=== PATIENT | male | born 1960 | race Caucasian/White ===

== ENCOUNTER → 2016-11-06 | Outpatient (CLI) | payer BC ==
[~2016-11-06] MED LIST: ASP325TEC PO; ASP81TEC PO; ESCT10T; FLUO20CA25 PO; FLUO40CA PO; GABA-488 PO; GARL200T PO; GEMF600T3 PO; HYDR25TA4 PO; LAMO100T3 PO; LAMO200T3 PO; LORA0.5T PO; METH4TAB PO; METO5TAB2 PO; METO5TAB79 PO; NITR0.4T12 SL; OMEP20CA12 PO; OMG1KC PO; PNT40TEC PO; TOPI100T2 PO; TRM50T PO; VENL150T4 PO
--- NOTE | 2016-11-06 13:33 | Diagnostic Imaging Report ---
INDICATION: Trauma, seizure approximately 11 days ago, hit back during a fall, complains of lower back pain since. COMPARISON STUDIES: None. FINDINGS: Frontal and lateral views of the lumbar spine demonstrate no fracture or subluxation. Disc space narrowing is present at L2-L3 and L3-L4 with small posterior osteophytes. Milder disc space narrowing is present at L4-L5. IMPRESSION: There are degenerative changes of the lumbar spine with no acute findings. Dictated by: Dictated on workstation # [id number]
== END ==
LOC: RAD 12:05
PROVIDERS: ATTEND Internal Medicine
DX: M51.36 Other intervertebral disc degeneration, lumbar region (principal)
CPT/HCPCS: 72100

== ENCOUNTER → 2017-03-22 | Outpatient (CLI) | payer BC | LOC: CARD 07:02 | PROVIDERS: ATTEND Internal Medicine | DX: R07.9 Chest pain, unspecified (principal); I25.10 Atherosclerotic heart disease of native coronary artery without angina pectoris | CPT/HCPCS: 93017 ==

== ENCOUNTER 2017-04-05 20:12 | Outpatient (CLI) | payer BC | END 2017-04-06 06:20 | disposition home or self-care (01) | LOC: SLEEP 20:12 | PROVIDERS: ATTEND Psychiatry & Neurology Neurology | DX: G47.33 Obstructive sleep apnea (adult) (pediatric) (principal) | CPT/HCPCS: 95811 ==

== ENCOUNTER 2017-11-15 14:01 | Emergency (ER) | payer BC ==
[~2017-11-15] VITALS: Ht 190.5 cm; Wt 149.7 kg
--- OUTSIDE RECORDS SUMMARY | 2017-11-15 14:09 | XMS REPORT | Continuity of Care Document ---
Author Author [facility] Organization [facility] Address Unknown Phone Unavailable Allergies Active Description Code Type Severity Reaction Onset Reported/Identified Relationship to Patient Clinical Status Yes levofloxacin [id number] Drug Allergy Unknown N/A 07/16/2007 Medications There is no data. Problems Date Dx Coded Attending Type Code Diagnosis Diagnosed By 06/02/2009 Ot 346.90 06/02/2009 Ot 780.39 06/02/2009 Ot 780.4 06/02/2009 Ot 780.79 06/02/2009 Ot V58.69 02/27/2010 Ot 530.81 02/27/2010 Ot 550.90 02/27/2010 Ot 569.49 02/27/2010 Ot 578.1 06/22/2011 Ot 272.4 HYPERLIPIDEMIA NEC/NOS 06/22/2011 Ot 327.23 OBSTRUCTIVE SLEEP APNEA (ADULT) (PEDIATR 06/22/2011 Ot 401.9 HYPERTENSION NOS 06/22/2011 Ot 414.01 CORONARY ATHEROSCLEROSIS OF [place] CORON 06/22/2011 Ot 496 CHR AIRWAY OBSTRUCT NEC 06/22/2011 Ot 786.09 RESPIRATORY ABNORM NEC 06/22/2011 Ot 786.50 CHEST PAIN NOS 06/22/2011 Ot 794.30 ABN CARDIOVASC STUDY NOS 06/22/2011 Ot V58.66 LONG-TERM ( CURRENT) USE OF ASPIRIN 06/22/2011 Ot V58.69 OTH MED,LT, CURRENT USE 07/08/2011 Ot V01.89 OTHER COMMUNICABLE DISEASES 11/19/2012 Ot 272.4 HYPERLIPIDEMIA NEC/NOS 11/19/2012 Ot 327.23 OBSTRUCTIVE SLEEP APNEA (ADULT) (PEDIATR 11/19/2012 Ot 401.9 HYPERTENSION NOS 11/19/2012 Ot 414.01 CORONARY ATHEROSCLEROSIS OF [place] CORON 11/19/2012 Ot 433.10 CAROTID ARTERY OCCLUSION W O CEREBRAL IN 11/19/2012 Ot 496 CHR AIRWAY OBSTRUCT NEC 11/19/2012 Ot 786.50 CHEST PAIN NOS 11/19/2012 Ot 794.30 ABN CARDIOVASC STUDY NOS 11/19/2012 Ot V58.66 LONG-TERM ( CURRENT) USE OF ASPIRIN 11/19/2012 Ot V58.69 OTH MED,LT, CURRENT USE 01/23/2013 ANNE-MARIE HEMPHILL, GREG Charles Ot 327.23 OBSTRUCTIVE SLEEP APNEA (ADULT) (PEDIATR 01/29/2013 GREG XIE MD Ot 327.23 OBSTRUCTIVE SLEEP APNEA (ADULT) (PEDIATR 08/12/2014 Ot 286.9 08/12/2014 Ot 786.50 08/12/2014 Ot 427.89 08/12/2014 Ot 786.50 08/12/2014 Ot 272.4 08/12/2014 Ot 401.9 08/12/2014 Ot 780.39 08/12/2014 Ot 781.0 08/12/2014 Ot 550.90 08/12/2014 Ot 578.1 08/12/2014 Ot V72.63 08/12/2014 Ot V72.81 08/12/2014 Ot V74.8 08/12/2014 Ot 426.13 08/12/2014 Ot 427.81 08/12/2014 Ot 272.4 08/12/2014 Ot 397.0 08/12/2014 Ot 401.9 08/12/2014 Ot 424.0 08/12/2014 Ot 786.09 08/12/2014 Ot 786.50 08/12/2014 Ot 401.9 08/12/2014 Ot 414.00 08/12/2014 Ot 786.05 08/12/2014 Ot 786.50 08/12/2014 Ot 794.39 08/12/2014 Ot V72.63 08/12/2014 Ot V72.83 08/12/2014 Ot V01.89 08/12/2014 Ot 272.4 08/12/2014 Ot 401.9 08/12/2014 Ot 414.01 08/12/2014 Ot 401.9 08/12/2014 Ot 414.00 08/12/2014 Ot 786.50 08/12/2014 Ot 397.0 08/12/2014 Ot 401.9 08/12/2014 Ot 414.00 08/12/2014 Ot 424.0 08/12/2014 Ot 786.50 08/12/2014 SOFIYA HEMPHILL, CARLY T Ot 496 08/12/2014 JULIET HEMPHILL, MISAEL Little Ot 272.4 08/12/2014 JULIET HEMPHILL, MISAEL Little Ot 327.23 08/12/2014 MISAEL CHUNG MD Ot 401.9 08/12/2014 JULIET HEMPHILL, MISAEL Little Ot 414.00 08/12/2014 JULIET HEMPHILL, MISAEL Little Ot 427.81 08/12/2014 JOCELYN GARCIA APRN Ot 780.79 09/22/2014 Ot 286.9 09/22/2014 Ot 786.50 09/22/2014 Ot 427.89 09/22/2014 Ot 786.50 09/22/2014 Ot 272.4 09/22/2014 Ot 401.9 09/22/2014 Ot 780.39 09/22/2014 Ot 781.0 09/22/2014 Ot 550.90 09/22/2014 Ot 578.1 09/22/2014 Ot V72.63 09/22/2014 Ot V72.81 09/22/2014 Ot V74.8 09/22/2014 Ot 426.13 09/22/2014 Ot 427.81 09/22/2014 Ot 272.4 09/22/2014 Ot 397.0 09/22/2014 Ot 401.9 09/22/2014 Ot 424.0 09/22/2014 Ot 786.09 09/22/2014 Ot 786.50 09/22/2014 Ot 401.9 09/22/2014 Ot 414.00 09/22/2014 Ot 786.05 09/22/2014 Ot 786.50 09/22/2014 Ot 794.39 09/22/2014 Ot V72.63 09/22/2014 Ot V72.83 09/22/2014 Ot V01.89 09/22/2014 Ot 272.4 09/22/2014 Ot 401.9 09/22/2014 Ot 414.01 09/22/2014 Ot 401.9 09/22/2014 Ot 414.00 09/22/2014 Ot 786.50 09/22/2014 Ot 397.0 09/22/2014 Ot 401.9 09/22/2014 Ot 414.00 09/22/2014 Ot 424.0 09/22/2014 Ot 786.50 09/22/2014 SOFIYA HEMPHILL, SHANTELLROSSY Ot 496 09/22/2014 MISAEL CHUNG MD Ot 272.4 09/22/2014 MISAEL CHUNG MD Ot 327.23 09/22/2014 MISAEL CHUNG MD Ot 401.9 09/22/2014 MISAEL CHUNG MD Ot 414.00 09/22/2014 MISAEL CHUNG MD Ot 427.81 09/22/2014 JOCELYN GARCIA APRN Ot 780.79 12/03/2014 Ot 272.4 HYPERLIPIDEMIA NEC/NOS 12/03/2014 Ot 327.23 OBSTRUCTIVE SLEEP APNEA (ADULT) (PEDIATR 12/03/2014 Ot 401.9 HYPERTENSION NOS 12/03/2014 Ot 414.01 CORONARY ATHEROSCLEROSIS OF [place] CORON 12/03/2014 Ot 496 CHR AIRWAY OBSTRUCT NEC 12/03/2014 Ot 786.09 RESPIRATORY ABNORM NEC 12/03/2014 Ot 786.50 CHEST PAIN NOS 12/06/2014 Ot 535.40 OTH SPECIFIED GASTRITIS,W/O MENTION OF H 12/06/2014 Ot 553.3 DIAPHRAGMATIC HERNIA 01/07/2015 Ot 272.4 01/07/2015 Ot 401.9 01/07/2015 Ot 780.39 01/07/2015 Ot 781.0 01/07/2015 Ot 550.90 01/07/2015 Ot 578.1 01/07/2015 Ot V72.63 01/07/2015 Ot V72.81 01/07/2015 Ot V74.8 01/07/2015 Ot 426.13 01/07/2015 Ot 427.81 01/07/2015 Ot 272.4 01/07/2015 Ot 397.0 01/07/2015 Ot 401.9 01/07/2015 Ot 424.0 01/07/2015 Ot 786.09 01/07/2015 Ot 786.50 01/07/2015 Ot 401.9 01/07/2015 Ot 414.00 01/07/2015 Ot 786.05 01/07/2015 Ot 786.50 01/07/2015 Ot 794.39 01/07/2015 Ot V72.63 01/07/2015 Ot V72.83 01/07/2015 Ot V01.89 01/07/2015 Ot 272.4 01/07/2015 Ot 401.9 01/07/2015 Ot 414.01 01/07/2015 Ot 401.9 01/07/2015 Ot 414.00 01/07/2015 Ot 786.50 01/07/2015 Ot 397.0 01/07/2015 Ot 401.9 01/07/2015 Ot 414.00 01/07/2015 Ot 424.0 01/07/2015 Ot 786.50 01/07/2015 SOFIYA HEMPHILL, CARLY Kline Ot 496 01/07/2015 JULIET HEMPHILL, MISAEL Little Ot 272.4 01/07/2015 JULIET HEMPHILL, MISAEL Little Ot 327.23 01/07/2015 JULIET HEMPHILL, MISAEL J Ot 401.9 01/07/2015 JULIET HEMPHILL, MISAEL Little Ot 414.00 01/07/2015 JULIET HEMPHILL, MISAEL Little Ot 427.81 01/07/2015 OJCELYN GARCIA APRN Ot 780.79 01/07/2015 Ot V72.84 02/24/2015 ANNE-MARIE HEMPHILL, GREG Charles Ot 327.23 OBSTRUCTIVE SLEEP APNEA (ADULT) (PEDIATR 02/25/2015 Ot 272.4 02/25/2015 Ot 401.9 02/25/2015 Ot 780.39 02/25/2015 Ot 781.0 02/25/2015 Ot 550.90 02/25/2015 Ot 578.1 02/25/2015 Ot V72.63 02/25/2015 Ot V72.81 02/25/2015 Ot V74.8 02/25/2015 Ot 426.13 02/25/2015 Ot 427.81 02/25/2015 Ot 272.4 02/25/2015 Ot 397.0 02/25/2015 Ot 401.9 02/25/2015 Ot 424.0 02/25/2015 Ot 786.09 02/25/2015 Ot 786.50 02/25/2015 Ot 401.9 02/25/2015 Ot 414.00 02/25/2015 Ot 786.05 02/25/2015 Ot 786.50 02/25/2015 Ot 794.39 02/25/2015 Ot V72.63 02/25/2015 Ot V72.83 02/25/2015 Ot V01.89 02/25/2015 Ot 272.4 02/25/2015 Ot 401.9 02/25/2015 Ot 414.01 02/25/2015 Ot 401.9 02/25/2015 Ot 414.00 02/25/2015 Ot 786.50 02/25/2015 Ot 397.0 02/25/2015 Ot 401.9 02/25/2015 Ot 414.00 02/25/2015 Ot 424.0 02/25/2015 Ot 786.50 02/25/2015 SOFIYA HEMPHILL, CARLY T Ot 496 02/25/2015 MISAEL CHUNG MD Ot 272.4 02/25/2015 MISAEL CHUNG MD Ot 327.23 02/25/2015 MISAEL CHUNG MD Ot 401.9 02/25/2015 MISAEL CHUNG MD Ot 414.00 02/25/2015 MISAEL CHUNG MD Ot 427.81 02/25/2015 JOCELYN GARCIA HEMALATHA Ot 780.79 02/25/2015 Ot V72.84 11/15/2015 ALF MATHUR DO Ot R19.7 DIARRHEA, UNSPECIFIED 05/21/2016 Ot 272.4 HYPERLIPIDEMIA NEC/NOS 05/21/2016 Ot 397.0 TRICUSPID VALVE DISEASE 05/21/2016 Ot 401.9 HYPERTENSION NOS 05/21/2016 Ot 424.0 MITRAL VALVE DISORDER 05/21/2016 Ot 786.09 RESPIRATORY ABNORM NEC 05/21/2016 Ot 786.50 CHEST PAIN NOS 05/21/2016 Ot 401.9 HYPERTENSION NOS 05/21/2016 Ot 414.00 CORON ATHEROSCLER NOS TYPE VESSEL, NATIV 05/21/2016 Ot 786.05 SHORTNESS OF BREATH 05/21/2016 Ot 786.50 CHEST PAIN NOS 05/21/2016 Ot 794.39 ABN CARDIOVASC STUDY NEC 05/21/2016 Ot V72.63 PRE- PROCEDURAL LABORATORY EXAMINATION 05/21/2016 Ot V72.83 EXAM PRE- OPERATIVE NEC 05/21/2016 Ot V01.89 OTHER COMMUNICABLE DISEASES 05/21/2016 Ot 272.4 HYPERLIPIDEMIA NEC/NOS 05/21/2016 Ot 401.9 HYPERTENSION NOS 05/21/2016 Ot 414.01 CORONARY ATHEROSCLEROSIS OF [place] CORON 05/21/2016 Ot 401.9 HYPERTENSION NOS 05/21/2016 Ot 414.00 CORON ATHEROSCLER NOS TYPE VESSEL, NATIV 05/21/2016 Ot 786.50 CHEST PAIN NOS 05/21/2016 Ot 397.0 TRICUSPID VALVE DISEASE 05/21/2016 Ot 401.9 HYPERTENSION NOS 05/21/2016 Ot 414.00 CORON ATHEROSCLER NOS TYPE VESSEL, NATIV 05/21/2016 Ot 424.0 MITRAL VALVE DISORDER 05/21/2016 Ot 786.50 CHEST PAIN NOS 05/21/2016 SOFIYA HEMPHILL, CRALY Kline Ot 496 CHR AIRWAY OBSTRUCT NEC 05/21/2016 MISAEL CHUNG MD Ot 272.4 HYPERLIPIDEMIA NEC/NOS 05/21/2016 MISAEL CHUNG MD Ot 327.23 OBSTRUCTIVE SLEEP APNEA (ADULT) (PEDIATR 05/21/2016 MISAEL CHUNG MD Ot 401.9 HYPERTENSION NOS 05/21/2016 MISAEL CHUNG MD Ot 414.00 CORON ATHEROSCLER NOS TYPE VESSEL, NATIV 05/21/2016 MISAEL CHUNG MD Ot 427.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 05/21/2016 JOCELYN GARCIA APRN Ot 780.79 OTH MALAISE FATIGUE 05/21/2016 Ot V72.84 EXAM PRE- OPERATIVE NOS 05/21/2016 ALF MATHUR DO Ot R19.7 DIARRHEA, UNSPECIFIED 05/23/2016 MISAEL CHUNG MD Ot E78.2 MIXED HYPERLIPIDEMIA 05/23/2016 MISAEL CHUNG MD Ot I10 ESSENTIAL (PRIMARY) HYPERTENSION 05/23/2016 MISAEL CHUNG MD Ot I25.10 ATHSCL HEART DISEASE OF [place] CORONARY 05/23/2016 MISAEL CHUNG MD Ot I49.5 SICK SINUS SYNDROME 05/23/2016 MISAEL CHUNG MD Ot I65.23 OCCLUSION AND STENOSIS OF BILATERAL PABLO 05/23/2016 MISAEL CHUNG MD Ot R06.02 SHORTNESS OF BREATH 05/23/2016 MISAEL CHUNG MD Ot R07.9 CHEST PAIN, UNSPECIFIED 06/05/2016 Ot 272.4 HYPERLIPIDEMIA NEC/NOS 06/05/2016 Ot 397.0 TRICUSPID VALVE DISEASE 06/05/2016 Ot 401.9 HYPERTENSION NOS 06/05/2016 Ot 424.0 MITRAL VALVE DISORDER 06/05/2016 Ot 786.09 RESPIRATORY ABNORM NEC 06/05/2016 Ot 786.50 CHEST PAIN NOS 06/05/2016 Ot 401.9 HYPERTENSION NOS 06/05/2016 Ot 414.00 CORON ATHEROSCLER NOS TYPE VESSEL, NATIV 06/05/2016 Ot 786.05 SHORTNESS OF BREATH 06/05/2016 Ot 786.50 CHEST PAIN NOS 06/05/2016 Ot 794.39 ABN CARDIOVASC STUDY NEC 06/05/2016 Ot V72.63 PRE- PROCEDURAL LABORATORY EXAMINATION 06/05/2016 Ot V72.83 EXAM PRE- OPERATIVE NEC 06/05/2016 Ot V01.89 OTHER COMMUNICABLE DISEASES 06/05/2016 Ot 272.4 HYPERLIPIDEMIA NEC/NOS 06/05/2016 Ot 401.9 HYPERTENSION NOS 06/05/2016 Ot 414.01 CORONARY ATHEROSCLEROSIS OF [place] CORON 06/05/2016 Ot 401.9 HYPERTENSION NOS 06/05/2016 Ot 414.00 CORON ATHEROSCLER NOS TYPE VESSEL, NATIV 06/05/2016 Ot 786.50 CHEST PAIN NOS 06/05/2016 Ot 397.0 TRICUSPID VALVE DISEASE 06/05/2016 Ot 401.9 HYPERTENSION NOS 06/05/2016 Ot 414.00 CORON ATHEROSCLER NOS TYPE VESSEL, NATIV 06/05/2016 Ot 424.0 MITRAL VALVE DISORDER 06/05/2016 Ot 786.50 CHEST PAIN NOS 06/05/2016 SOFIYA HEMPHILL, CARLY Kline Ot 496 CHR AIRWAY OBSTRUCT NEC 06/05/2016 MISAEL CHUNG MD Ot 272.4 HYPERLIPIDEMIA NEC/NOS 06/05/2016 MISAEL CHUNG MD Ot 327.23 OBSTRUCTIVE SLEEP APNEA (ADULT) (PEDIATR 06/05/2016 MISAEL CHUNG MD Ot 401.9 HYPERTENSION NOS 06/05/2016 MISAEL CHUNG MD Ot 414.00 CORON ATHEROSCLER NOS TYPE VESSEL, NATIV 06/05/2016 MISAEL CHUNG MD Ot 427.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 06/05/2016 JOCELYN GARCIA APRN Ot 780.79 OTH MALAISE FATIGUE 06/05/2016 Ot V72.84 EXAM PRE- OPERATIVE NOS 06/05/2016 ALF MATHUR DO Ot R19.7 DIARRHEA, UNSPECIFIED 06/05/2016 MISAEL CHUNG MD Ot E78.2 MIXED HYPERLIPIDEMIA 06/05/2016 MISAEL CHUNG MD Ot I10 ESSENTIAL (PRIMARY) HYPERTENSION 06/05/2016 MISAEL CHUNG MD Ot I25.10 ATHSCL HEART DISEASE OF [place] CORONARY 06/05/2016 MISAEL CHUNG MD Ot I49.5 SICK SINUS SYNDROME 06/05/2016 MISAEL CHUNG MD Ot I65.23 OCCLUSION AND STENOSIS OF BILATERAL PABLO 06/05/2016 MISAEL CHUNG MD Ot R06.02 SHORTNESS OF BREATH 06/05/2016 MISAEL CHUNG MD Ot R07.9 CHEST PAIN, UNSPECIFIED 06/05/2016 Ot 272.4 HYPERLIPIDEMIA NEC/NOS 06/05/2016 Ot 397.0 TRICUSPID VALVE DISEASE 06/05/2016 Ot 401.9 HYPERTENSION NOS 06/05/2016 Ot 424.0 MITRAL VALVE DISORDER 06/05/2016 Ot 786.09 RESPIRATORY ABNORM NEC 06/05/2016 Ot 786.50 CHEST PAIN NOS 06/05/2016 Ot 401.9 HYPERTENSION NOS 06/05/2016 Ot 414.00 CORON ATHEROSCLER NOS TYPE VESSEL, NATIV 06/05/2016 Ot 786.05 SHORTNESS OF BREATH 06/05/2016 Ot 786.50 CHEST PAIN NOS 06/05/2016 Ot 794.39 ABN CARDIOVASC STUDY NEC 06/05/2016 Ot V72.63 PRE- PROCEDURAL LABORATORY EXAMINATION 06/05/2016 Ot V72.83 EXAM PRE- OPERATIVE NEC 06/05/2016 Ot V01.89 OTHER COMMUNICABLE DISEASES 06/05/2016 Ot 272.4 HYPERLIPIDEMIA NEC/NOS 06/05/2016 Ot 401.9 HYPERTENSION NOS 06/05/2016 Ot 414.01 CORONARY ATHEROSCLEROSIS OF [place] CORON 06/05/2016 Ot 401.9 HYPERTENSION NOS 06/05/2016 Ot 414.00 CORON ATHEROSCLER NOS TYPE VESSEL, NATIV 06/05/2016 Ot 786.50 CHEST PAIN NOS 06/05/2016 Ot 397.0 TRICUSPID VALVE DISEASE 06/05/2016 Ot 401.9 HYPERTENSION NOS 06/05/2016 Ot 414.00 CORON ATHEROSCLER NOS TYPE VESSEL, NATIV 06/05/2016 Ot 424.0 MITRAL VALVE DISORDER 06/05/2016 Ot 786.50 CHEST PAIN NOS 06/05/2016 SOFIYA HEMPHILL, CARLY Kline Ot 496 CHR AIRWAY OBSTRUCT NEC 06/05/2016 MISAEL CHUNG MD Ot 272.4 HYPERLIPIDEMIA NEC/NOS 06/05/2016 MISAEL CHUNG MD Ot 327.23 OBSTRUCTIVE SLEEP APNEA (ADULT) (PEDIATR 06/05/2016 MISAEL CHUNG MD Ot 401.9 HYPERTENSION NOS 06/05/2016 MISAEL CHUNG MD Ot 414.00 CORON ATHEROSCLER NOS TYPE VESSEL, NATIV 06/05/2016 MISAEL CHUNG MD Ot 427.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 06/05/2016 JOCELYN GARCIA APRN Ot 780.79 OTH MALAISE FATIGUE 06/05/2016 Ot V72.84 EXAM PRE- OPERATIVE NOS 06/05/2016 ALF MATHUR DO Ot R19.7 DIARRHEA, UNSPECIFIED 06/05/2016 MISAEL CHUNG MD Ot E78.2 MIXED HYPERLIPIDEMIA 06/05/2016 MISAEL CHUNG MD Ot I10 ESSENTIAL (PRIMARY) HYPERTENSION 06/05/2016 MISAEL CHUNG MD Ot I25.10 ATHSCL HEART DISEASE OF [place] CORONARY 06/05/2016 MISAEL CHUNG MD Ot I49.5 SICK SINUS SYNDROME 06/05/2016 MISAEL CHUNG MD Ot I65.23 OCCLUSION AND STENOSIS OF BILATERAL PABLO 06/05/2016 MISAEL CHUNG MD Ot R06.02 SHORTNESS OF BREATH 06/05/2016 MISAEL CHUNG MD Ot R07.9 CHEST PAIN, UNSPECIFIED 06/05/2016 RASHEED PULIDO CHANNELER RUNNER Ot M76.61 ACHILLES TENDINITIS, RIGHT LEG 06/05/2016 RASHEED PULIDO APRN Ot M79.661 PAIN IN RIGHT LOWER LEG 06/05/2016 RASHEED PULIDO APRN Ot Z79.82 FDC (CURRENT) USE OF ASPIRIN 06/05/2016 RASHEED PULIDO CHANNELER RUNNER Ot Z79.899 OTHER FDC (CURRENT) DRUG THERAPY 06/07/2016 RASHEED PULIDO CHANNELER RUNNER Ot M76.61 ACHILLES TENDINITIS, RIGHT LEG 06/07/2016 RASHEED PULIDO CHANNELER RUNNER Ot M79.661 PAIN IN RIGHT LOWER LEG 06/07/2016 RASHEED PULIDO CHANNELER RUNNER Ot Z79.82 FDC (CURRENT) USE OF ASPIRIN 06/07/2016 RASHEED PULIDO CHANNELER RUNNER Ot Z79.899 OTHER FDC (CURRENT) DRUG THERAPY 06/11/2016 RASHEED PULIDO CHANNELER RUNNER Ot M76.61 ACHILLES TENDINITIS, RIGHT LEG 06/11/2016 RASHEED PULIDO CHANNELER RUNNER Ot M79.661 PAIN IN RIGHT LOWER LEG 06/11/2016 RASHEED PULIDO CHANNELER RUNNER Ot Z79.82 FDC (CURRENT) USE OF ASPIRIN 06/11/2016 RASHEED PULIDO CHANNELER RUNNER Ot Z79.899 OTHER FDC (CURRENT) DRUG THERAPY 06/12/2016 MISAEL CHUNG MD Ot E78.2 MIXED HYPERLIPIDEMIA 06/12/2016 MISAEL CHUNG MD Ot I10 ESSENTIAL (PRIMARY) HYPERTENSION 06/12/2016 MISAEL CHUNG MD Ot I25.10 ATHSCL HEART DISEASE OF [place] CORONARY 06/12/2016 MISAEL CHUNG MD Ot I49.5 SICK SINUS SYNDROME 06/12/2016 MISAEL CHUNG MD Ot I65.23 OCCLUSION AND STENOSIS OF BILATERAL PABLO 06/12/2016 JULIET HEMPHILL, MISAEL Little Ot R06.02 SHORTNESS OF BREATH 06/12/2016 MISAEL CHUNG MD Ot R07.9 CHEST PAIN, UNSPECIFIED 11/06/2016 Ot 272.4 HYPERLIPIDEMIA NEC/NOS 11/06/2016 Ot 397.0 TRICUSPID VALVE DISEASE 11/06/2016 Ot 401.9 HYPERTENSION NOS 11/06/2016 Ot 424.0 MITRAL VALVE DISORDER 11/06/2016 Ot 786.09 RESPIRATORY ABNORM NEC 11/06/2016 Ot 786.50 CHEST PAIN NOS 11/06/2016 Ot 401.9 HYPERTENSION NOS 11/06/2016 Ot 414.00 CORON ATHEROSCLER NOS TYPE VESSEL, NATIV 11/06/2016 Ot 786.05 SHORTNESS OF BREATH 11/06/2016 Ot 786.50 CHEST PAIN NOS 11/06/2016 Ot 794.39 ABN CARDIOVASC STUDY NEC 11/06/2016 Ot V72.63 PRE- PROCEDURAL LABORATORY EXAMINATION 11/06/2016 Ot V72.83 EXAM PRE- OPERATIVE NEC 11/06/2016 Ot V01.89 OTHER COMMUNICABLE DISEASES 11/06/2016 Ot 272.4 HYPERLIPIDEMIA NEC/NOS 11/06/2016 Ot 401.9 HYPERTENSION NOS 11/06/2016 Ot 414.01 CORONARY ATHEROSCLEROSIS OF [place] CORON 11/06/2016 Ot 401.9 HYPERTENSION NOS 11/06/2016 Ot 414.00 CORON ATHEROSCLER NOS TYPE VESSEL, NATIV 11/06/2016 Ot 786.50 CHEST PAIN NOS 11/06/2016 Ot 397.0 TRICUSPID VALVE DISEASE 11/06/2016 Ot 401.9 HYPERTENSION NOS 11/06/2016 Ot 414.00 CORON ATHEROSCLER NOS TYPE VESSEL, NATIV 11/06/2016 Ot 424.0 MITRAL VALVE DISORDER 11/06/2016 Ot 786.50 CHEST PAIN NOS 11/06/2016 SOFIYA HEMPHILL, CARLY Kline Ot 496 CHR AIRWAY OBSTRUCT NEC 11/06/2016 MISAEL CHUNG MD Ot 272.4 HYPERLIPIDEMIA NEC/NOS 11/06/2016 MISAEL CHUNG MD Ot 327.23 OBSTRUCTIVE SLEEP APNEA (ADULT) (PEDIATR 11/06/2016 MISAEL CHUNG MD Ot 401.9 HYPERTENSION NOS 11/06/2016 MISAEL CHUNG MD Ot 414.00 CORON ATHEROSCLER NOS TYPE VESSEL, NATIV 11/06/2016 MISAEL CHUNG MD Ot 427.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 11/06/2016 JOCELYN GARCIA APRN Ot 780.79 OTH MALAISE FATIGUE 11/06/2016 Ot V72.84 EXAM PRE- OPERATIVE NOS 11/06/2016 ALF MATHUR DO Ot R19.7 DIARRHEA, UNSPECIFIED 11/06/2016 MISAEL CHUNG MD Ot E78.2 MIXED HYPERLIPIDEMIA 11/06/2016 MISAEL CHUNG MD Ot I10 ESSENTIAL (PRIMARY) HYPERTENSION 11/06/2016 MISAEL CHUNG MD, Ot I25.10 ATHSCL HEART DISEASE OF [place] CORONARY 11/06/2016 MISAEL CHUNG MD Ot I49.5 SICK SINUS SYNDROME 11/06/2016 MISAEL CHUNG MD Ot I65.23 OCCLUSION AND STENOSIS OF BILATERAL PABLO 11/06/2016 MISAEL CHUNG MD Ot R06.02 SHORTNESS OF BREATH 11/06/2016 MISAEL CHUNG MD, Ot R07.9 CHEST PAIN, UNSPECIFIED 11/07/2016 ALF MATHUR DO Ot M51.36 OTHER INTERVERTEBRAL DISC DEGENERATION, 11/22/2016 ALF MATHUR DO Ot M51.36 OTHER INTERVERTEBRAL DISC DEGENERATION, 04/05/2017 ALF MATHUR DO Ot I25.10 ATHSCL HEART DISEASE OF [place] CORONARY 04/05/2017 ALF MATHUR DO Ot R07.9 CHEST PAIN, UNSPECIFIED 04/06/2017 GREG XIE MD Ot G47.33 OBSTRUCTIVE SLEEP APNEA (ADULT) (PEDIATR Procedures There is no data. Results There is no data. Encounters ACCT No. Visit Date/Time Discharge Status Pt. Type Provider Facility Loc./Unit Complaint [id number] 04/05/2017 20:12:00 04/06/2017 06:20:00 DIS Outpatient GREG XIE MD [facility] SLEEP OBSTRUCTIVE SLEEP APNEA [id number] 03/22/2017 07:02:00 03/22/2017 23:59:59 CLS Outpatient ALF MATHUR DO [facility] CARD R07.9,I25.10 [id number] 11/06/2016 12:05:00 11/06/2016 23:59:59 CLS Outpatient ALF MATHUR DO [facility] RAD TRAUMA [id number] 06/05/2016 18:27:00 06/05/2016 23:59:59 CLS Outpatient KARINA LOVE HERNANDEZABDIRAHMAN FRASER [facility] QUICK FOOT/ANKLE PAIN [id number] 06/05/2016 19:15:00 06/05/2016 20:52:00 DIS Emergency RASHEED PULIDO CHANNELER RUNNER [facility] ER R HEEL/LEG PAIN [id number] 05/21/2016 08:02:00 05/21/2016 23:59:59 CLS Outpatient MISAEL CHUNG MD [facility] CARD CAD, CAROTID ARTERY STENOSIS, CHEST PAIN, DYSPNEA, [id number] 11/16/2015 00:08:00 11/16/2015 23:59:59 CLS Preadmit ALF MATHUR DO [facility] LAB DIARRHEA [id number] 08/17/2015 11:02:00 11/15/2015 00:01:00 DIS Outpatient ALF MATHUR DO [facility] LAB DIARRHEA [id number] 02/23/2015 20:18:00 02/24/2015 05:05:00 DIS Outpatient GREG XIE MD [facility] SLEEP APNEAS [id number] 03/10/2014 09:42:00 03/10/2014 23:59:59 CLS Outpatient JOCELYN GARCIA APRN [facility] LAB FATIGUE [id number] 09/21/2013 07:57:00 09/21/2013 23:59:59 CLS Outpatient MISAEL CHUNG MD [facility] LAB HTN,HLP,JUSTIN,SSS,CAD [id number] 02/04/2013 12:58:00 02/04/2013 23:59:59 CLS Outpatient CARLY ARRIAZA MD [facility] RT COPD [id number] 01/28/2013 19:59:00 01/29/2013 06:35:00 DIS Outpatient GREG XIE MD [facility] SLEEP OA [id number] 01/22/2013 21:00:00 01/23/2013 07:15:00 DIS Outpatient ANNE-MARIE HEMPHILL, GREG Charles [facility] SLEEP JUSTIN [id number] 12/06/2014 06:43:00 Document Registration [id number] 12/03/2014 11:51:00 Document Registration [id number] 12/02/2014 19:35:00 Document Registration [id number] 11/19/2012 08:33:00 Document Registration [id number] 11/05/2012 11:28:00 Document Registration [id number] 10/31/2012 09:13:00 Document Registration [id number] 11/16/2011 07:46:00 Document Registration [id number] 07/09/2011 00:00:00 Document Registration [id number] 06/22/2011 05:30:00 Document Registration [id number] 06/21/2011 07:38:00 Document Registration [id number] 06/13/2011 10:41:00 Document Registration [id number] 04/15/2011 10:55:00 Document Registration [id number] 03/17/2010 09:48:00 Document Registration [id number] 02/27/2010 05:41:00 Document Registration [id number] 02/22/2010 09:10:00 Document Registration [id number] 11/28/2009 08:46:00 Document Registration [id number] 11/28/2009 08:41:00 Document Registration [id number] 06/01/2009 13:15:00 Document Registration [id number] 05/25/2009 10:58:00 Document Registration [id number] 05/10/2009 10:50:00 Document Registration [id number] 05/04/2009 10:38:00 Document Registration
[2017-11-15] MEDS ORDERED: LACTATED RINGERS 1,000 ML IV ONE ×2 (14:17→15:49)
--- NOTE | 2017-11-15 14:27 | ED GI ---
General Chief Complaint: Abdominal/GI Problems Stated Complaint: CARRANZA/DOESN'T FEEL RIGHT/SOB Source of Information: Patient, Spouse Exam Limitations: No Limitations History of Present Illness Date Seen by Provider: Nov 15, 2017 Time Seen by Provider: 14:10 Initial Comments Patient presents to the ER by private conveyance with a chief complaint that for one day he's been experiencing nausea vomiting and diarrhea. The vomit and bowel has been nonbloody. He does not have a history of irritable bowel syndrome or inflammatory bowel syndrome. No one around him is sick and he has not had any travel outside the [facility]. He has no fevers. He has also experienced a headache today is unlike his normal migraine headaches and that it is global, constant and has not responded to a single dose of ibuprofen today. He has no rash and he is not a smoker. He has had a colonoscopy distantly and it was unremarkable at that time. He has known heart disease that is medically managed by Dr. Chapa, cardiology. He is not expressing any chest pain but he is having some mild shortness of breath. The shortness of breath is made worse with exertion. He was at work and called his because he wanted to be evaluated so they went to urgent care just prior to arrival at the ER where they were told that he might have pneumonia and therefore he should go to the ER to have an x-ray and lab work obtained. He does have a history of COPD for which she has been prescribed daily inhalers as well as Ventolin but his remarks he has not had or use those inhalers for over a year now. The patient says he does not use oxygen however he does use a CPAP at night. Allergies and Home Medications Allergies Coded Allergies: levofloxacin (Verified Allergy, Unknown, 07/16/07) Home Medications Aspirin 81 Mg Tabec, 81 MG PO DAILY, (Reported) Gabapentin 300 Mg Capsule, 300 MG PO TID, (Reported) Garlic 200 Mg Tablet, 200 MG PO DAILY, (Reported) Gemfibrozil 600 Mg Tablet, 600 MG PO BID, (Reported) Hydrochlorothiazide 25 Mg Tablet, 25 MG PO DAILY, (Reported) Methylprednisolone 4 Mg Tab.ds.pk, 4 MG PO UD Prescribed by: RASHEED PULIDO on 06/05/162012 Metoclopramide Hcl 5 Mg Tablet, 5 MG PO TID PRN, (Reported) [place] 3 Polyunsat Fatty Acids 1,000 Mg Cap, 2,000 MG PO BID, (Reported) Pantoprazole Sod 40 Mg Tab, 40 MG PO DAILY Prescribed by: MISAEL CHAPA on 12/03/14 0937 Topiramate 100 Mg Tablet, 100 MG PO BID, (Reported) Venlafaxine Hcl 150 Mg Tab.osm.24, 150 MG PO DAILY, (Reported) Review of Systems Constitutional: No chills, No diaphoresis, No fever, malaise EENTM: Blurred Vision, No Double Vision Respiratory: Denies Cough, Denies Shortness of Air, Denies Stridor, Denies Wheezing Cardiovascular: Denies Chest Pain, Denies Lightheadedness, Denies Palpitations , Denies Syncope Gastrointestinal: Denies Abdomen Distended, Denies Abdominal Pain, Denies Constipated, Diarrhea, Nausea, Poor Appetite, Poor Fluid Intake, Vomiting Genitourinary: Denies Burning, Denies Discharge Musculoskeletal: No back pain, No joint pain Skin: No pruritus, No rash Psychiatric/Neurological: Denies Anxiety, Denies Depressed Past Mwnzlsp-Jqyozx-Moonnc Hx Patient Social History Alcohol Use: Occasionally Uses Recreational Drug Use: No Smoking Status: Former Smoker Type Used: Cigarettes Recent Foreign Travel: No Contact w/Someone Who Travel: No Recent Hopitalizations: No Surgeries History of Surgeries: Yes (COMPRESSED NERVE R ARM, HERNIA REPAIR, HEART CATHS) Surgeries: Abdominal, Gallbladder Respiratory History of Respiratory Disorde: Yes Respiratory Disorders: Sleep Apnea, COPD Cardiovascular History of Cardiac Disorders: Yes Cardiac Disorders: Coronary Artery Disease, Deep Vein Thrombosis, High Cholesterol Neurological History of Neurological Disord: Yes Neurological Disorders: Headaches /Migraines, Seizure Disorder Reproductive System Hx Reproductive Disorders: No Sexually Transmitted Disease: No Gastrointestinal History of Gastrointestinal Di: Yes Gastrointestinal Disorders: Gastroesophageal Reflux, Ulcer Musculoskeletal History of Musculoskeletal Dis: No Endocrine History of Endocrine Disorders: No Cancer History of Cancer: No Psychosocial History of Psychiatric Problem: Yes Behavioral Health Disorders: Anxiety, Depression Integumentary History of Skin or Integumenta: No Blood Transfusions History of Blood Disorders: No Physical Exam Vital Signs VS - Last 72 Hours, by Label 11/15/17 11/15/17 11/15/17 14:01 14:42 15:33 Temp 97.4 Pulse 72 75 Resp 18 18 B/P (MAP) 162/99 (120) 163/91 (115) Pulse Ox 97 99 98 O2 Delivery Room Air Room Air Room Air Capillary Refill : General Appearance: WD/WN, no apparent distress HEENT: TMs normal, pharynx normal Neck: non-tender, full range of motion, normal inspection Respiratory: chest non-tender, lungs clear, no respiratory distress, no accessory muscle use, decreased breath sounds Cardiovascular: normal peripheral pulses, regular rate, rhythm, no edema Peripheral Pulses: 2+ Radial Pulses (R), 2+ Radial Pulses (L) Gastrointestinal: normal bowel sounds, non tender, soft, no organomegaly, No rebound, No tenderness (negative for tenderness over McBurney's point and no Wagner's sign.) Neurologic/Psychiatric: alert, oriented x 3 Skin: normal color, warm/dry Progress/Results/Core Measures Results/Orders Lab Results Laboratory Tests Test 11/15/17 14:30 Range/Units White Blood Count 5.8 4.3-11.0 10^3/uL Red Blood Count 4.42 4.35-5.85 10^6/uL Hemoglobin 13.3 13.3-17.7 G/DL Hematocrit 38 L 40-54 % Mean Corpuscular Volume 87 80-99 FL Mean Corpuscular Hemoglobin 30 25-34 PG Mean Corpuscular Hemoglobin Concent 35 32-36 G/DL Red Cell Distribution Width 14.3 10.0-14.5 % Platelet Count 288 130-400 10^3/uL Mean Platelet Volume 9.5 7.4-10.4 FL Neutrophils (%) (Auto) 61 42-75 % Lymphocytes (%) (Auto) 25 12-44 % Monocytes (%) (Auto) 12 0-12 % Eosinophils (%) (Auto) 3 0-10 % Basophils (%) (Auto) 0 0-10 % Neutrophils # (Auto) 3.5 1.8-7.8 X 10^3 Lymphocytes # (Auto) 1.4 1.0-4.0 X 10^3 Monocytes # (Auto) 0.7 0.0-1.0 X 10^3 Eosinophils # (Auto) 0.2 0.0-0.3 10^3/uL Basophils # (Auto) 0.0 0.0-0.1 10^3/uL Sodium Level 142 135-145 MMOL/L Potassium Level 4.1 3.6-5.0 MMOL/L Chloride Level 105 98-107 MMOL/L Carbon Dioxide Level 26 21-32 MMOL/L Anion Gap 11 5-14 MMOL/L Blood Urea Nitrogen 21 H 7-18 MG/DL Creatinine 1.26 0.60-1.30 MG/DL Estimat Glomerular Filtration Rate 59 BUN/Creatinine Ratio 17 Glucose Level 108 H 70-105 MG/DL Calcium Level 9.6 8.5-10.1 MG/DL Magnesium Level 2.1 1.8-2.4 MG/DL Total Bilirubin 0.5 0.1-1.0 MG/DL Aspartate Amino Transf (AST/SGOT) 16 5-34 U/L Alanine Aminotransferase (ALT/SGPT) 16 0-55 U/L Alkaline Phosphatase 144 H 40-136 U/L Troponin I < 0.30 <0.30 NG/ML C-Reactive Protein High Sensitivity 0.80 H 0.00-0.50 MG/DL Total Protein 7.8 6.4-8.2 GM/DL Albumin 4.6 H 3.2-4.5 GM/DL Lipase 43 8-78 U/L Micro Results Microbiology 11/15/17 Influenza Types A,B Antigen (MURRAY) - Final, Complete My Orders Orders - DEVONTE CALITXO Cbc With Automated Diff (11/15/17 14:17) Comprehensive Metabolic Panel (11/15/17 14:17) Hs C Reactive Protein (11/15/17 14:17) Magnesium (11/15/17 14:17) Troponin I (11/15/17 14:17) Influenza A And B Antigens (11/15/17 14:17) Chest Pa/Lat (2 View) (11/15/17 14:17) Albuterol/Ipra Inhalation Soln (Duoneb I (11/15/17 14:30) Saline Lock/Iv-Start (11/15/17 14:17) Lactated Ringers (Lr 1000 Ml Iv Solution (11/15/17 14:17) Ekg Tracing (11/15/17 14:17) Continuous Ekg Monitoring (11/15/17 14:17) Svn Sm Volume Nebulizer Rt-Rfs (11/15/17 14:17) Ondansetron Injection (Zofran Injectio (11/15/17 14:30) Ketorolac Injection (Toradol Injection) (11/15/17 14:30) Lipase (11/15/17 15:39) Fentanyl Injection (Sublimaze Injection (11/15/17 16:00) Promethazine Injection (Phenergan Injec (11/15/17 16:00) Ct Abdomen/Pelvis W (11/15/17 15:49) Lactated Ringers (Lr 1000 Ml Iv Solution (11/15/17 15:49) Iohexol Injection (Omnipaque 350 Mg/Ml 1 (11/15/17 16:00) Sodium Chloride Flush (Catheter Flush Sy (11/15/17 16:00) Ns (Ivpb) (Sodium Chloride 0.9%) (11/15/17 16:00) Pharmacy Communication (Pharmacy Communi (11/15/17 15:52) Medications Given in ED Current Medications Medications Dose Ordered Sig/Raya Route Start Time Stop Time Status Last Admin Dose Admin Albuterol/ Ipratropium 3 ml ONCE ONCE INH 11/15/17 14:30 11/15/17 14:31 DC 11/15/17 14:36 3 ML Fentanyl Citrate 50 mcg ONCE ONCE IVP 11/15/17 16:00 11/15/17 16:01 DC 11/15/17 15:57 50 MCG Iohexol 100 ml ONCE ONCE IV 11/15/17 16:00 11/15/17 16:01 DC 11/15/17 16:16 100 ML Ketorolac Tromethamine 15 mg ONCE ONCE IVP 11/15/17 14:30 11/15/17 14:32 DC 11/15/17 14:37 15 MG Lactated Ringer's 1,000 ml @ 0 mls/hr Q0M ONCE IV 11/15/17 14:17 11/15/17 14:22 DC 11/15/17 14:38 1,000 MLS/HR Lactated Ringer's 1,000 ml @ 0 mls/hr Q0M ONCE IV 11/15/17 15:49 11/15/17 15:51 DC 11/15/17 15:57 1,000 MLS/HR Ondansetron HCl 4 mg ONCE ONCE IVP 11/15/17 14:30 11/15/17 14:32 DC 11/15/17 14:37 4 MG Promethazine HCl 25 mg ONCE ONCE IVP 11/15/17 16:00 11/15/17 16:01 DC 11/15/17 15:57 25 MG Sodium Chloride 10 ml NEEDED PRN IV 11/15/17 16:00 11/15/17 16:16 10 ML Sodium Chloride 250 ml ONCE ONCE IV 11/15/17 16:00 11/15/17 16:01 DC 11/15/17 16:16 80 ML Vital Signs/I&O Vital Sign - Last 12Hours 11/15/17 11/15/17 11/15/17 14:01 14:42 15:33 Temp 97.4 Pulse 72 75 Resp 18 18 B/P (MAP) 162/99 (120) 163/91 (115) Pulse Ox 97 99 98 O2 Delivery Room Air Room Air Room Air Progress Note #1: Time: 15:41 Progress Note Patient's chief complaint seems to be nausea vomiting diarrhea which is more consistent with gastrointestinal disorder. His shortness of breath is more of a side note and when I asked him directly about it he only noncommittally said he has a little bit of shortness of breath. However he denies any wheezing, stridor or other evidence of COPD. His clinical examination did not change after the DuoNeb he does not feel that his breathing got any better. Chest x- ray is not showing any evidence of a pneumonia. His white count is not elevated. His alkaline phosphatase is mildly elevated sodium at a lipase and even though his had his gallbladder out think about any possible stroking disorder and give him the opportunity to get imaging of his abdomen. Progress Note #2: Time: 17:12 Progress Note Skeletal evidence of a pneumonia. Patient's nausea is mildly improved on the Phenergan and Zofran. We'll send him home some Zofran. His headache mildly improved with the NSAID the fentanyl however did not help much. We have offered him some opiates anyways with his diarrheal disease. Discussed using her might appropriately. Discussed that if symptoms not improving by time to go back to work on Saturday which would be 5 days then it would be best that he see his primary care physician for further evaluation and management. We have also discussed return precautions if he expresses a neurologic symptoms with this headache and movement of the detail about this. ECG Initial ECG Impression Date: Nov 15, 2017 Initial ECG Impression Time: 14:50 Initial ECG Rate: 87 Initial ECG Rhythm: Normal Sinus Initial ECG Intervals: Normal Initial ECG Impression: Normal Initial ECG Comparisson: No Previous ECG Available Comment No ST segment elevation or depression. Diagnostic Imaging Diagonstic Imaging: Xray Plain Films/CT/US/NM/MRI: chest Comments [facility] [place] [place] NAME: WALDEMAR MCKEON [facility] REC#: [id number] PT STATUS: REG ER : 1960 PHYSICIAN: DEVONTE CALIXTO MD ADMIT DATE: 11/15/17/ER Draft Date of Exam:11/15/17 CHEST PA/LAT (2 VIEW) INDICATION: Headache, nausea and vomiting. COMPARISON: 12/02/2014 FINDINGS: Two views of the chest are obtained. Heart size is normal. The pulmonary vessels appear unremarkable. There is no pneumothorax, mediastinal widening or pleural fluid. The lungs are clear. The osseous structures appear unremarkable. IMPRESSION: No acute abnormality is demonstrated. Dictated on workstation # [id number] Dict: 11/15/17 1509 Trans: 11/15/17 1511 [facility] [id number] Interpreted by: RAVINDRA ALCANTAR DO Electronically signed by: Reviewed: Reviewed by Me Diagonstic Imaging: CT Plain Films/CT/US/NM/MRI: abdomen, pelvis Comments Lung bases there is no significant edema, infiltrate or effusion. Bilateral kidneys unremarkable. The architecture, blood vessels and ureters of the kidneys, spleen and liver are unremarkable. Gallbladder surgically absent with clips in place. No ductal dilatation of the biliary ductal system. Colon and small bowels are empty without significant inflammatory changes. Abdominal wall unremarkable. No acute osseous abnormality noted. No free fluid or air in the abdomen. Stomach and duodenum unremarkable. Radiopaque object in the lumen noted. Moderate calcification of intra-abdominal arteries. Neither the appendix nor secondary evidence of appendiceal inflammation is seen. [facility] [place] [place] NAME: WALDEMAR MCKEON [facility] REC#: [id number] PT STATUS: REG ER : 1960 PHYSICIAN: DEVONTE CALIXTO MD ADMIT DATE: 11/15/17/ER Draft Date of Exam:11/15/17 CT ABDOMEN/PELVIS W PROCEDURE: CT abdomen and pelvis with contrast. TECHNIQUE: Multiple contiguous axial images were obtained through the abdomen and pelvis after administration of intravenous contrast. INDICATION: Nausea, vomiting, and diarrhea. COMPARISON: None available. FINDINGS: Lower chest: The lung bases are clear. No pericardial or pleural effusion. Peritoneum: No free intraperitoneal air or fluid. Liver and biliary system: The liver is normal. Status post cholecystectomy. No biliary duct dilatation. Spleen and Pancreas: Spleen is normal. The pancreas enhances normally without mass lesion or peripancreatic inflammatory changes. Adrenals: Normal. tract: The kidneys enhance normally without suspicious mass or obstruction. Urinary bladder is distended without wall thickening. Prostate is not enlarged. GI tract: Stomach is partially distended with fluid and food debris, and there is no wall thickening. No bowel obstruction. No pericolonic inflammatory changes. There are a few scattered sigmoid colon diverticula without evidence of diverticulitis. Appendix is not visualized and may be surgically absent. If not surgically absent, there are no inflammatory changes to indicate acute appendicitis. Vasculature and Lymph nodes: Normal caliber aorta with scattered calcified atherosclerotic plaques that do not result in significant luminal narrowing. No abdominal or pelvic lymphadenopathy. Musculoskeletal: No concerning osseous lesion. Focally advanced degenerative disc disease at the lumbosacral junction. IMPRESSION: 1. No acute obstructive or inflammatory process in the abdomen or pelvis. 2. Sigmoid colon diverticulosis without diverticulitis. Dictated on workstation # [id number] Dict: 11/15/17 1631 Trans: 11/15/17 1639 [id number] Interpreted by: DANIEL ARREOLA MD Electronically signed by: Reviewed: Reviewed by Me Departure Impression Impression: Primary Impression: Gastroenteritis and colitis, viral Additional Impression: Acute tension headache Qualified Codes: G44.201 - Tension-type headache, unspecified, intractable Disposition: 01 HOME, SELF-CARE Condition: Improved Departure-Patient Inst. Decision time for Depature: 17:13 Referrals: ALF MATHUR DO (PCP/Family) Primary Care Physician Patient Instructions: Viral Gastroenteritis, Adult (DC) Add. Discharge Instructions: Drink lots of water and sports drinks to get herself rehydrated. If you have nausea you can use the Zofran 1 tablet on the tongue and allowed to absorb every 4 hours as needed. If you're having pain thousand grams of Tylenol every 8 hours as well as 800 mg of ibuprofen every 8 hours would be reasonable. If you 're still having breakthrough pain especially with diarrhea then you can use the hydrocodone one tablet every 6 hours. Hydrocodone will cause constipation which is acceptable effect even your diarrhea. You should not drive or operate heavy machinery while under the influence of hydrocodone. Eat a diet rich in fiber and low in spicy greasy foods such as a brat diet, bananas, rice, applesauce and/or toast. If your diarrhea is persisting for more than 24-48 hours or you do not feel that you can keep up with your fluid intake then you can take 2 tablets of loperamide/Imodium and then every 4 hours afterwards take another tablet if you're still having loose watery stools. If you begin to experience any symptoms such as double vision, blindness, slurred speech, facial droop, weakness, falls, loss of control of your bowel or bladder or other worrisome symptoms return to the ER immediately for evaluation. If you are not feeling your symptoms are resolved by Saturday of next week then you should call your primary care physician for follow-up evaluation. All discharge instructions reviewed with patient and/or family. Voiced understanding. Scripts Hydrocodone Bit/Acetaminophen (Hydrocodone/Acetaminophen 5/325mg Tablet) 1 Tab Tab 1 EACH PO Q6H Y for BREAKTHROUGH PAIN, #15 TAB 0 Refills Prov: DEVONTE CALIXTO 11/15/17 Ondansetron (Ondansetron Odt) 4 Mg Tab.rapdis 4 MG PO Q4H Y for NAUSEA/VOMITING, #20 TAB 0 Refills Prov: DEVONTE CALIXTO 11/15/17 Work/School Note: Work Release Form Date Seen in the Emergency Department: Nov 15, 2017 Return to Work: Nov 19, 2017 Restrictions: No Restrictions Copy Copies To 1: ALF MATHUR TITUS J Nov 15, 2017 14:27
[2017-11-15] MEDS ORDERED: RT-ALBUTEROL/IPRATROPIUM 3 ML (DUONEB) VIAL INH ONE (14:30)
[2017-11-15] MEDS ORDERED: ONDANSETRON 4 MG/2 ML (SDV) Z0FRAN IVP ONE (14:30)
[2017-11-15] MEDS ORDERED: KETOROLAC 30 MG/ML VIAL IVP ONE (14:30)
[2017-11-15 14:50] LABS: BASOPHILS % (AUTO) 0 % (0-10); EOSINOPHILS # (AUTO) 0.2 10^3/uL (0.0-0.3); EOSINOPHILS % (AUTO) 3 % (0-10); HEMATOCRIT 38 % (40-54); HEMOGLOBIN 13.3 G/DL (13.3-17.7); LYMPHOCYTES # (AUTO) 1.4 X 10^3 (1.0-4.0); LYMPHOCYTES % (AUTO) 25 % (12-44); MEAN CORPUSCULAR HEMOGLOBIN 30 PG (25-34); MEAN CORPUSCULAR HGB CONC 35 G/DL (32-36); MEAN CORPUSCULAR VOLUME 87 FL (80-99); MEAN PLATELET VOLUME 9.5 FL (7.4-10.4); MONOCYTES # (AUTO) 0.7 X 10^3 (0.0-1.0); MONOCYTES % (AUTO) 12 % (0-12); NEUTROPHILS # (AUTO) 3.5 X 10^3 (1.8-7.8); NEUTROPHILS % (AUTO) 61 % (42-75); PLATELET COUNT 288 10^3/uL (130-400); RED BLOOD COUNT 4.42 10^6/uL (4.35-5.85); RED CELL DISTRIBUTION WIDTH 14.3 % (10.0-14.5); WHITE BLOOD COUNT 5.8 10^3/uL (4.3-11.0)
--- NOTE | 2017-11-15 15:11 | Diagnostic Imaging Report ---
INDICATION: Headache, nausea and vomiting. COMPARISON: 12/02/2014 FINDINGS: Two views of the chest are obtained. Heart size is normal. The pulmonary vessels appear unremarkable. There is no pneumothorax, mediastinal widening or pleural fluid. The lungs are clear. The osseous structures appear unremarkable. IMPRESSION: No acute abnormality is demonstrated. Dictated by: Dictated on workstation # [id number]
[2017-11-15 15:15] LABS: ALANINE AMINOTRANSFERASE 16 U/L (0-55); ALBUMIN 4.6 GM/DL (3.2-4.5); ALKALINE PHOSPHATASE 144 U/L (40-136); BILIRUBIN,TOTAL 0.5 MG/DL (0.1-1.0); BUN/CREATININE RATIO 17; CALCIUM 9.6 MG/DL (8.5-10.1); CARBON DIOXIDE 26 MMOL/L (21-32); CHLORIDE 105 MMOL/L (98-107); CREATININE SERUM 1.26 MG/DL (0.60-1.30); GFR ESTIMATED 59; GLUCOSE 108 MG/DL (70-105); MAGNESIUM 2.1 MG/DL (1.8-2.4); POTASSIUM 4.1 MMOL/L (3.6-5.0); SODIUM 142 MMOL/L (135-145); TOTAL PROTEIN 7.8 GM/DL (6.4-8.2)
[2017-11-15 15:33] VITALS: BP 163/91
[2017-11-15] MEDS ORDERED: fentaNYL INJECTION 100 MCG/2 ML AMP IVP ONE (16:00)
[2017-11-15] MEDS ORDERED: PROMETHAZINE INJ 25 MG/ML (PHENERGAN) AMP IVP ONE (16:00)
[2017-11-15] MEDS ORDERED: CATHETER FLUSH 10 ML SYR IV PRN (16:00)
[2017-11-15] MEDS ORDERED: IOHEXOL 350 MG/ML 100 ML (OMNIPAQUE 350) VIAL IV ONE (16:00)
[2017-11-15] MEDS ORDERED: NS 250 ML (IVPB) BAG IV ONE (16:00)
--- NOTE | 2017-11-15 16:39 | Diagnostic Imaging Report ---
PROCEDURE: CT abdomen and pelvis with contrast. TECHNIQUE: Multiple contiguous axial images were obtained through the abdomen and pelvis after administration of intravenous contrast. INDICATION: Nausea, vomiting, and diarrhea. COMPARISON: None available. FINDINGS: Lower chest: The lung bases are clear. No pericardial or pleural effusion. Peritoneum: No free intraperitoneal air or fluid. Liver and biliary system: The liver is normal. Status post cholecystectomy. No biliary duct dilatation. Spleen and Pancreas: Spleen is normal. The pancreas enhances normally without mass lesion or peripancreatic inflammatory changes. Adrenals: Normal. tract: The kidneys enhance normally without suspicious mass or obstruction. Urinary bladder is distended without wall thickening. Prostate is not enlarged. GI tract: Stomach is partially distended with fluid and food debris, and there is no wall thickening. No bowel obstruction. No pericolonic inflammatory changes. There are a few scattered sigmoid colon diverticula without evidence of diverticulitis. Appendix is not visualized and may be surgically absent. If not surgically absent, there are no inflammatory changes to indicate acute appendicitis. Vasculature and Lymph nodes: Normal caliber aorta with scattered calcified atherosclerotic plaques that do not result in significant luminal narrowing. No abdominal or pelvic lymphadenopathy. Musculoskeletal: No concerning osseous lesion. Focally advanced degenerative disc disease at the lumbosacral junction. IMPRESSION: 1. No acute obstructive or inflammatory process in the abdomen or pelvis. 2. Sigmoid colon diverticulosis without diverticulitis. Dictated by: Dictated on workstation # [id number]
[2017-11-15] MEDS ORDERED: ONDA4TAB11 PO (17:17)
[2017-11-15] MEDS ORDERED: ACHD5005 PO (17:17)
[2017-11-15 17:22] VITALS: BP 165/96
== END 2017-11-15 17:26 | disposition home or self-care (01) ==
LOC: EDUNIT# 14:01 → ER 14:03
DX: A08.4 Viral intestinal infection, unspecified (principal); F41.9 Anxiety disorder, unspecified; F32.9 Major depressive disorder, single episode, unspecified; K21.9 Gastro-esophageal reflux disease without esophagitis; G40.909 Epilepsy, unspecified, not intractable, without status epilepticus; G43.909 Migraine, unspecified, not intractable, without status migrainosus; I25.10 Atherosclerotic heart disease of native coronary artery without angina pectoris; E78.00 Pure hypercholesterolemia, unspecified; J44.9 Chronic obstructive pulmonary disease, unspecified; Z86.718 Personal history of other venous thrombosis and embolism; Z87.891 Personal history of nicotine dependence; Z79.82 Long term (current) use of aspirin
CPT/HCPCS: 36415; 71046; 74177; 80053; 83690; 83735; 84484; 85025; 86141; 87804; 93005; 94640; 96361; 96374; 96375

== ENCOUNTER → 2018-07-10 | Outpatient (CLI) | payer BC ==
[~2018-07-10] MED LIST changes: +ACHD5005 PO; +ONDA4TAB11 PO
[2018-07-10 10:13] LABS: ALANINE AMINOTRANSFERASE 18 U/L (0-55); ALBUMIN 4.6 GM/DL (3.2-4.5); ALKALINE PHOSPHATASE 125 U/L (40-136); BILIRUBIN,TOTAL 0.4 MG/DL (0.1-1.0); BUN/CREATININE RATIO 17; CALCIUM 9.6 MG/DL (8.5-10.1); CARBON DIOXIDE 21 MMOL/L (21-32); CHLORIDE 107 MMOL/L (98-107); CHOLESTEROL 173 MG/DL (< 200); CREATININE SERUM 1.15 MG/DL (0.60-1.30); GFR ESTIMATED > 60; GLUCOSE 99 MG/DL (70-105); HDL CHOLESTEROL 25 MG/DL (40-60); POTASSIUM 4.7 MMOL/L (3.6-5.0); SODIUM 140 MMOL/L (135-145); TOTAL PROTEIN 7.7 GM/DL (6.4-8.2); TRIGLYCERIDES 236 MG/DL (<150); VLDL CHOLESTEROL 47 MG/DL (5-40)
== END ==
LOC: LAB 09:28
PROVIDERS: ATTEND Physician Assistant
DX: I25.10 Atherosclerotic heart disease of native coronary artery without angina pectoris (principal); I65.29 Occlusion and stenosis of unspecified carotid artery; R06.02 Shortness of breath; I10 Essential (primary) hypertension
CPT/HCPCS: 36415; 80053; 80061

== ENCOUNTER 2018-08-22 10:27 | Outpatient (CLI) | payer BC ==
[~2018-08-22] VITALS: Ht 190.5 cm; Wt 156.6 kg
[2018-08-22 10:45] VITALS: BP 143/81
[2018-08-26] MEDS ORDERED: PANT40TA3 PO (12:37)
[2018-08-26] MEDS ORDERED: DICL1TAB53 PO (12:37)
[2018-08-26] MEDS ORDERED: GARL10002 PO (12:37)
[2018-08-26] MEDS ORDERED: LOSA50TA7 PO (12:37)
[2018-08-26] MEDS ORDERED: ALPR0.254 PO (12:37)
[2018-08-26] MEDS ORDERED: GEMF600T4 PO (12:37)
[2018-08-26] MEDS ORDERED: LAMO300T2 PO (12:37)
[2018-08-26] MEDS ORDERED: POTA10TA10 PO (12:37)
[2018-08-26] MEDS ORDERED: GABA600T2 PO (12:37)
[2018-08-26] MEDS ORDERED: ANAS1TAB7 PO (12:37)
[2018-08-26] MEDS ORDERED: ASPI-999 PO (12:37)
[2018-08-26] MEDS ORDERED: VENL150T PO (12:37)
[2018-08-26] MEDS ORDERED: METO-333 PO (12:37)
[2018-08-26] MEDS ORDERED: CALC-250 PO (12:37)
== END 2018-08-22 15:30 | disposition home or self-care (01) ==
LOC: PREOP 10:27
PROVIDERS: ATTEND Orthopaedic Surgery
DX: Z01.818 Encounter for other preprocedural examination (principal)
CPT/HCPCS: 87081

== ENCOUNTER 2018-09-17 09:08 | Day surgery (SDC) | payer BC ==
--- NOTE | 2018-08-18 15:28 | HISTORY AND PHYSICAL ---
DATE OF SERVICE: ADMISSION HISTORY AND PHYSICAL DATE OF ADMISSION: 08/27/2018. This will be for outpatient surgery on 08/27/2018, for left carpal tunnel release and left cubital tunnel release. HISTORY OF PRESENT ILLNESS: The patient is a 58-year-old left handed gentleman who complains of left hand pain and paresthesias. He underwent an EMG nerve conduction study, which revealed evidence of a left carpal and cubital tunnel syndrome. He reports hand pain and paresthesias. He reports left elbow pain. He reports this has been present for several years. He reports it has progressed. He reports night pain and constant paresthesias. REVIEW OF SYSTEMS: No chest pain, no shortness of breath or dysuria. PAST MEDICAL HISTORY: Seizure disorder, COPD, sleep apnea, and hypertension. PAST SURGICAL HISTORY: Radial nerve release on the left, cholecystectomy. FAMILY HISTORY: Significant for cancer, ischemic heart disease. PRIMARY CARE PROVIDER: Husam Quan DO. MEDICATIONS: Testosterone, omeprazole, metoprolol, lamotrigine, Lopid, Spiriva, benzonatate, Arimidex, Effexor, ProAir, aspirin, garlic, nitroglycerin, pantoprazole, diclofenac, gabapentin, and meloxicam. ALLERGIES: LEVAQUIN. SOCIAL HISTORY: The patient is a former smoker, drinks alcohol occasionally. PHYSICAL EXAMINATION: GENERAL: The patient is well developed, well-nourished, in no acute distress. HEENT: Normocephalic, atraumatic. Pupils are equal, round, and react to light. Oropharynx is clear. NECK: Supple, no lymphadenopathy. LUNGS: Clear to auscultation bilaterally. HEART: Regular rate and rhythm. ABDOMEN: Soft, nontender, and nondistended. EXTREMITIES: Left elbow demonstrated positive elbow flexion test. He has a positive Tinel's at the carpal and cubital tunnels. He has a positive Phalen maneuver. He has decreased sensation in median distribution and ulnar distribution. There is mild thenar atrophy noted and there is weakness with thumb palmar abduction. IMPRESSION: Left carpal and cubital tunnel syndrome. PLAN: Left carpal and cubital tunnel releases. The risks, benefits, options, ramifications and recovery have been discussed at length with the patient and he understands and wishes to proceed. Job ID: [id number] DocumentID: [id number] Dictated Date: 08/18/2018 14:41:08 Customer Sales Consultant Date: 08/18/2018 15:28:21 Dictated By: EUGENE JOYCE MD
[~2018-09-17] VITALS: Ht 190.5 cm; Wt 156.6 kg
[~2018-09-17 09:08] MED LIST changes: +ALPR0.254 PO; +ANAS1TAB7 PO; +ASPI-999 PO; +CALC-250 PO; +DICL1TAB53 PO; +GABA600T2 PO; +GARL10002 PO; +GEMF600T4 PO; +LAMO300T2 PO; +LOSA50TA7 PO; +METO-333 PO; +PANT40TA3 PO; +POTA10TA10 PO; +VENL150T PO
[2018-09-17] MEDS ORDERED: LACTATED RINGERS 1,000 ML IV PRN (09:11)
[2018-09-17] MEDS ORDERED: BUPIVACAINE 0.5% 30 ML (SENSORCAINE) VIAL ONE (09:14)
[2018-09-17] MEDS ORDERED: LIDOCAINE 1% INJ 20 ML 20 ML VIAL ONE (09:14)
[2018-09-17] MEDS ORDERED: ceFAZolin INJECTION 1,000 MG in NS (IVPB) 50 ML IV ONE (09:15)
[2018-09-17 09:20] VITALS: BP 140/90
--- NOTE | 2018-09-17 09:22 | Progress Note-Pre Operative ---
Pre-Operative Progress Note H&P Reviewed The H&P was reviewed, patient examined and no changes noted. Date Seen by Provider: Sep 17, 2018 Time Seen by Provider: 09:21 Date H&P Reviewed: Sep 17, 2018 Time H&P Reviewed: 09:21 Pre-Operative Diagnosis: left carpal and cubital tunnel syndorme EUGENE JOYCE MD Sep 17, 2018 09:22
--- NOTE | 2018-09-17 09:23 | Progress Note-Post Operative ---
Post-Operative Progess Note Surgeon (s)/Chief Analytics Officer (s) Surgeon EUGENE JOYCE MD Chief Analytics Officer: danita garcia Pre-Operative Diagnosis left carpal and cubital tunnel syndorme Post-Operative Diagnosis left carpal and cubital tunnel syndrome Procedure & Operative Findings Date of Procedure 09/17/18 Procedure Performed/Findings left carpal and cubital tunnel releases Anesthesia Type GETA Estimated Blood Loss Estimated blood loss (mL): minimal Specimens/Packing Specimens Removed none Packing: none EUGENE JOYCE MD Sep 17, 2018 09:23
[2018-09-17] MEDS ORDERED: CATHETER FLUSH 10 ML SYR IV PRN (09:30)
[2018-09-17] MEDS ORDERED: HYDROcodone/APAP 7.5 MG/325 MG (LORTAB, LORCET PLUS) TABLET PO PRN (09:30)
[2018-09-17] MEDS ORDERED: SEVOFLURANE (ULTANE) 15 ML INHAL SOLN ONE ×2 (09:41→10:44)
[2018-09-17] MEDS ORDERED: ONDANSETRON 4 MG/2 ML (SDV) Z0FRAN ONE (09:41)
[2018-09-17] MEDS ORDERED: proPOfol 200 MG/20 ML (DIPRIVAN) VIAL IV ONE (09:41)
[2018-09-17] MEDS ORDERED: MIDAZOLAM 2 MG/2 ML (VERSED) VIAL ONE (09:41)
[2018-09-17] MEDS ORDERED: fentaNYL INJECTION 100 MCG/2 ML AMP ONE (09:41)
[2018-09-17] MEDS ORDERED: DEXAMETHASONE 10 MG/ML (DECADRON) 1 ML VIAL ONE (09:41)
[2018-09-17] MEDS ORDERED: FAMOTIDINE 20MG/2ML IV (PEPCID) IV ONE (10:00)
[2018-09-17] MEDS ORDERED: GLYCOPYRROLATE 0.2 MG/ML (ROBINUL) 2 ML VIAL ONE ×2 (10:43→11:05)
[2018-09-17 12:15] VITALS: BP 124/79
[2018-09-17 12:45] VITALS: BP 130/78
[2018-09-17] MEDS ORDERED: HYDR-3816 PO (12:57)
[2018-09-17 13:15] VITALS: BP 136/79
[2018-09-17 13:45] VITALS: BP 136/79
--- OUTSIDE RECORDS SUMMARY | 2018-09-17 13:51 | XMS REPORT | Continuity of Care Document ---
Author Author [facility] Organization [facility] Address Unknown Phone Unavailable Allergies Active Description Code Type Severity Reaction Onset Reported/Identified Relationship to Patient Clinical Status Yes LEVAQUIN LEVAQUIN UNKNOWN Yes LEVAQUIN UNKNOWN UNKNOWN Yes levofloxacin [id number] Drug Allergy Unknown N/A 07/16/2007 Medications Medication Packaging Start Date Stop Date Route Dosage Sig NORMAL SALINE 0.9 % (NS 100cc) (plain bag) ml 10/20/2016 10/20/2016 ONCE&0031 POTASSIUM CHLORIDE TAB 20 MEQ (K-DUR) MEQ 10/20/2016 10/20/2016 [id number]&[id number] Problems Date Dx Coded Attending Type Code Diagnosis Diagnosed By 06/02/2009 Ot 346.90 06/02/2009 Ot 780.39 06/02/2009 Ot 780.4 06/02/2009 Ot 780.79 06/02/2009 Ot V58.69 02/27/2010 Ot 530.81 02/27/2010 Ot 550.90 02/27/2010 Ot 569.49 02/27/2010 Ot 578.1 06/22/2011 Ot 272.4 HYPERLIPIDEMIA NEC/NOS 06/22/2011 Ot 327.23 OBSTRUCTIVE SLEEP APNEA (ADULT) (PEDIATR 06/22/2011 Ot 401.9 HYPERTENSION NOS 06/22/2011 Ot 414.01 CORONARY ATHEROSCLEROSIS OF [place] CORON 06/22/2011 Ot 496 CHR AIRWAY OBSTRUCT [...] NOS 11/19/2012 Ot 414.01 CORONARY ATHEROSCLEROSIS OF [place] CORON 11/19/2012 Ot 433.10 CAROTID ARTERY OCCLUSION [...] 08/12/2014 Ot 786.50 08/12/2014 SOFIYA HEMPHILL, CARLY Kline Ot 496 08/12/2014 JULIET HEMPHILL, MISAEL Little Ot 272.4 08/12/2014 MISAEL CHUNG MD Ot 327.23 08/12/2014 JULIET HEMPHILL, MISAEL Little Ot 401.9 08/12/2014 JULIET HEMPHILL, MISAEL Little Ot 414.00 08/12/2014 MISAEL CHUNG MD Ot 427.81 08/12/2014 JOCELYN GARCIA APRN Ot [...] 424.0 09/22/2014 Ot 786.50 09/22/2014 SOFIYA HEMPHILL, CARLY T Ot 496 09/22/2014 MISAEL CHUNG MD Ot 272.4 09/22/2014 MISAEL CHUNG MD Ot 327.23 09/22/2014 MISAEL CHUNG MD Ot 401.9 09/22/2014 MISAEL CHUNG MD Ot 414.00 09/22/2014 MISAEL CHUNG MD Ot 427.81 09/22/2014 JOCELYN GARCIA APRN Ot 780.79 12/03/2014 Ot 272.4 HYPERLIPIDEMIA NEC/NOS 12/03/2014 Ot 327.23 OBSTRUCTIVE SLEEP APNEA (ADULT) (PEDIATR 12/03/2014 Ot 401.9 HYPERTENSION NOS 12/03/2014 Ot 414.01 CORONARY ATHEROSCLEROSIS OF [place] CORON 12/03/2014 Ot 496 CHR AIRWAY OBSTRUCT [...] 424.0 01/07/2015 Ot 786.50 01/07/2015 SOFIYA HEMPHILL, [facility] 496 01/07/2015 JULIET HEMPHILL, MISAEL Little Ot 272.4 01/07/2015 JULIET HEMPHILL, MISAEL Little Ot 327.23 01/07/2015 JULIET HEMPHILL, MISAEL Little Ot 401.9 01/07/2015 JULIET HEMPHILL, MISAEL Little Ot 414.00 01/07/2015 JULIET HEMPHILL, MISAEL Little Ot 427.81 01/07/2015 JOCELYN GARCIA APRN Ot 780.79 01/07/2015 Ot V72.84 [...] 02/25/2015 Ot 786.50 02/25/2015 SOFIYA HEMPHILL, CARLY Kline Ot 496 02/25/2015 JULIET HEMPHILL, MISAEL Little Ot 272.4 02/25/2015 JULIET HEMPHILL, MISAEL Little Ot 327.23 02/25/2015 JULIET HEMPHILL, MISAEL Little Ot 401.9 02/25/2015 JULIET HEMPHILL, MISAEL Little Ot 414.00 02/25/2015 JULIET HEMPHILL, MISAEL Little Ot 427.81 02/25/2015 JOCELYN GARCIA APRN Ot 780.79 02/25/2015 Ot V72.84 11/15/2015 ALF [...] NOS 05/21/2016 Ot 414.01 CORONARY ATHEROSCLEROSIS OF [place] CORON 05/21/2016 Ot 401.9 HYPERTENSION NOS 05/21/2016 Ot 414.00 CORON ATHEROSCLER NOS TYPE VESSEL, NATIV 05/21/2016 Ot 786.50 CHEST PAIN NOS 05/21/2016 Ot 397.0 TRICUSPID VALVE DISEASE 05/21/2016 Ot 401.9 HYPERTENSION NOS 05/21/2016 Ot 414.00 CORON ATHEROSCLER NOS TYPE VESSEL, NATIV 05/21/2016 Ot 424.0 MITRAL VALVE DISORDER 05/21/2016 Ot 786.50 CHEST PAIN NOS 05/21/2016 SOFIYA HEMPHILL, CARLY Kline Ot 496 CHR AIRWAY OBSTRUCT NEC 05/21/2016 MISAEL CHUNG MD Ot 272.4 HYPERLIPIDEMIA NEC/NOS 05/21/2016 MISAEL CHUNG MD Ot 327.23 OBSTRUCTIVE SLEEP APNEA (ADULT) (PEDIATR 05/21/2016 MISAEL CHUNG MD Ot 401.9 HYPERTENSION NOS 05/21/2016 MISEAL CHUNG MD Ot 414.00 CORON ATHEROSCLER NOS [...] MD Ot I25.10 ATHSCL HEART DISEASE OF [place] CORONARY 05/23/2016 MISAEL CHUNG MD Ot I49.5 [...] NOS 06/05/2016 Ot 414.01 CORONARY ATHEROSCLEROSIS OF [place] CORON 06/05/2016 Ot 401.9 HYPERTENSION NOS 06/05/2016 Ot 414.00 CORON ATHEROSCLER NOS TYPE VESSEL, NATIV 06/05/2016 Ot 786.50 CHEST PAIN NOS 06/05/2016 Ot 397.0 TRICUSPID VALVE DISEASE 06/05/2016 Ot 401.9 HYPERTENSION NOS 06/05/2016 Ot 414.00 CORON ATHEROSCLER NOS TYPE VESSEL, NATIV 06/05/2016 Ot 424.0 MITRAL VALVE DISORDER 06/05/2016 Ot 786.50 CHEST PAIN NOS 06/05/2016 SOFIYA HEMPHILL, CHUCHO T Ot 496 CHR AIRWAY OBSTRUCT NEC 06/05/2016 [...] MD Ot I25.10 ATHSCL HEART DISEASE OF [place] CORONARY 06/05/2016 MISAEL CHUNG MD Ot I49.5 SICK SINUS SYNDROME 06/05/2016 MISAEL CHUNG MD Ot I65.23 OCCLUSION AND STENOSIS OF BILATERAL PABLO 06/05/2016 MISAEL CHUNG MD Ot R06.02 SHORTNESS OF BREATH 06/05/2016 JULIET HEMPHILL, MISAEL Little Ot R07.9 CHEST PAIN, UNSPECIFIED 06/05/2016 Ot [...] NOS 06/05/2016 Ot 414.01 CORONARY ATHEROSCLEROSIS OF [place] CORON 06/05/2016 Ot 401.9 HYPERTENSION NOS 06/05/2016 Ot 414.00 CORON ATHEROSCLER NOS TYPE VESSEL, NATIV 06/05/2016 Ot 786.50 CHEST PAIN NOS 06/05/2016 Ot 397.0 TRICUSPID VALVE DISEASE 06/05/2016 Ot 401.9 HYPERTENSION NOS 06/05/2016 Ot 414.00 CORON ATHEROSCLER NOS TYPE VESSEL, NATIV 06/05/2016 Ot 424.0 MITRAL VALVE DISORDER 06/05/2016 Ot 786.50 CHEST PAIN NOS 06/05/2016 SOFIYA HEMPHILL, CHUCHO Eliud Ot 496 CHR AIRWAY OBSTRUCT NEC 06/05/2016 [...] Ot R19.7 DIARRHEA, UNSPECIFIED 06/05/2016 MISAEL CHUNG MD, Ot E78.2 MIXED HYPERLIPIDEMIA 06/05/2016 MISAEL CHUNG MD Ot I10 ESSENTIAL (PRIMARY) HYPERTENSION 06/05/2016 MISAEL CHUNG MD Ot I25.10 ATHSCL HEART DISEASE OF [place] CORONARY 06/05/2016 MISAEL CHUNG MD Ot I49.5 SICK SINUS SYNDROME 06/05/2016 MISAEL CHUNG MD Ot I65.23 OCCLUSION AND STENOSIS OF BILATERAL PABLO 06/05/2016 MISAEL CHUNG MD Ot R06.02 SHORTNESS OF BREATH 06/05/2016 MISAEL CHUNG MD Ot R07.9 CHEST PAIN, UNSPECIFIED 06/05/2016 RASHEED PULIDO APRN Ot M76.61 ACHILLES TENDINITIS, RIGHT LEG 06/05/2016 RASHEED PULIDO APRN Ot M79.661 PAIN IN RIGHT LOWER LEG 06/05/2016 RASHEED PULIDO APRN Ot Z79.82 WOOD MOLDER (CURRENT) USE OF ASPIRIN 06/05/2016 RASHEED PULIDO APRN Ot Z79.899 OTHER [facility] (CURRENT) DRUG THERAPY 06/07/2016 RASHEED PULIDO APRN Ot M76.61 ACHILLES TENDINITIS, RIGHT LEG 06/07/2016 RASHEED PULIDO APRN Ot M79.661 PAIN IN RIGHT LOWER LEG 06/07/2016 RASHEED PULIDO APRN Ot Z79.82 WOOD MOLDER (CURRENT) USE OF ASPIRIN 06/07/2016 RASHEED PULIDO APRN Ot Z79.899 OTHER [facility] (CURRENT) DRUG THERAPY 06/11/2016 RASHEED PULIDO APRN Ot M76.61 ACHILLES TENDINITIS, RIGHT LEG 06/11/2016 RASHEED PULIDO APRN Ot M79.661 PAIN IN RIGHT LOWER LEG 06/11/2016 RASHEED PULIDO APRN Ot Z79.82 [facility] (CURRENT) USE OF ASPIRIN 06/11/2016 RASHEED PULIDO APRN Ot Z79.899 OTHER WOOD MOLDER (CURRENT) DRUG THERAPY 06/12/2016 MISAEL CHUNG MD Ot E78.2 MIXED HYPERLIPIDEMIA 06/12/2016 MISAEL CHUNG MD Ot I10 ESSENTIAL (PRIMARY) HYPERTENSION 06/12/2016 MISAEL CHUNG MD Ot I25.10 ATHSCL HEART DISEASE OF [place] CORONARY 06/12/2016 MISAEL CHUNG MD Ot I49.5 SICK SINUS SYNDROME 06/12/2016 MISAEL CHUNG MD Ot I65.23 OCCLUSION AND STENOSIS OF BILATERAL PABLO 06/12/2016 MISAEL CHUNG MD Ot R06.02 SHORTNESS OF BREATH 06/12/2016 MISAEL CHUNG MD Ot R07.9 CHEST PAIN, UNSPECIFIED 10/20/2016 Rasheed Pulido 272.4 OTHER AND UNSPECIFIED HYPERLIPIDEMIA 10/20/2016 Rasheed Pulido 345.90 EPILEPSY, UNSPECIFIED, WITHOUT MENTION OF INTRACTABLE EPILEPSY 10/20/2016 Rasheed Pulido 401.0 10/20/2016 Rasheed Pulido 491.20 OBSTRUCTIVE CHRONIC BRONCHITIS, WITHOUT EXACERBATION 10/20/2016 Rasheed Pulido 530.81 ESOPHAGEAL REFLUX 10/20/2016 Rasheed Pulido 916.0 10/20/2016 Rasheed Pulido E78.5 HYPERLIPIDEMIA, UNSPECIFIED 10/20/2016 Rasheed Pulido G40.909 EPILEPSY, UNSP, NOT INTRACTABLE, WITHOUT STATUS EPILEPTICUS 10/20/2016 Rasheed Pulido I10 ESSENTIAL (PRIMARY) HYPERTENSION 10/20/2016 Rasheed Pulido J44.9 CHRONIC OBSTRUCTIVE PULMONARY DISEASE, UNSPECIFIED 10/20/2016 Rasheed Pulido K21.9 GASTRO-ESOPHAGEAL REFLUX DISEASE WITHOUT ESOPHAGITIS 10/20/2016 Rasheed Pulido S80.211A ABRASION, RIGHT KNEE, INITIAL ENCOUNTER 10/20/2016 Rasheed Pulido S80.212A ABRASION, LEFT KNEE, INITIAL ENCOUNTER 11/06/2016 Ot 272.4 HYPERLIPIDEMIA NEC/NOS 11/06/2016 Ot [...] NOS 11/06/2016 Ot 414.01 CORONARY ATHEROSCLEROSIS OF [place] CORON 11/06/2016 Ot 401.9 HYPERTENSION NOS 11/06/2016 [...] I10 ESSENTIAL (PRIMARY) HYPERTENSION 11/06/2016 MISAEL CHUNG MD Ot I25.10 ATHSCL HEART DISEASE OF [place] CORONARY 11/06/2016 MISAEL CHUNG MD Ot I49.5 SICK SINUS SYNDROME 11/06/2016 MISAEL CHUNG MD Ot I65.23 OCCLUSION AND STENOSIS OF BILATERAL PABLO 11/06/2016 MISAEL CHUNG MD Ot R06.02 SHORTNESS OF BREATH 11/06/2016 MISAEL CHUNG MD Ot R07.9 CHEST PAIN, UNSPECIFIED 11/07/2016 ALF MATHUR DO Ot M51.36 OTHER INTERVERTEBRAL DISC DEGENERATION, 11/22/2016 ALF MATHUR DO Ot M51.36 OTHER INTERVERTEBRAL DISC DEGENERATION, 04/05/2017 ALF MATHUR DO Ot I25.10 ATHSCL HEART DISEASE OF [place] CORONARY 04/05/2017 ALF MATHUR DO Ot R07.9 CHEST PAIN, UNSPECIFIED 04/06/2017 ANNE-MARIE HEMPHILL, GREG Charles Ot G47.33 OBSTRUCTIVE SLEEP APNEA (ADULT) (PEDIATR 11/15/2017 DEVONTE CALIXTO MD Ot A08.4 VIRAL INTESTINAL INFECTION, UNSPECIFIED 11/15/2017 DEVONTE CALIXTO MD Ot E78.00 PURE HYPERCHOLESTEROLEMIA, UNSPECIFIED 11/15/2017 DEVONTE CALIXTO MD Ot F32.9 MAJOR DEPRESSIVE DISORDER, SINGLE EPISOD 11/15/2017 DEVONTE CALIXTO MD Ot F41.9 ANXIETY DISORDER, UNSPECIFIED 11/15/2017 DEVONTE CALIXTO MD Ot G40.909 EPILEPSY, UNSP, NOT INTRACTABLE, WITHOUT 11/15/2017 DEVONTE CALIXTO MD Ot G43.909 MIGRAINE, UNSP, NOT INTRACTABLE, WITHOUT 11/15/2017 DEVONTE CALIXTO MD Ot I25.10 ATHSCL HEART DISEASE OF [place] CORONARY 11/15/2017 DEVONTE CALIXTO MD Ot J44.9 CHRONIC OBSTRUCTIVE PULMONARY DISEASE, U 11/15/2017 DEVONTE CALIXTO MD Ot K21.9 GASTRO-ESOPHAGEAL REFLUX DISEASE WITHOUT 11/15/2017 DEVONTE CALIXTO MD Ot R11.2 NAUSEA WITH VOMITING, UNSPECIFIED 11/15/2017 DEVONTE CALIXTO MD Ot Z79.82 [facility] (CURRENT) USE OF ASPIRIN 11/15/2017 DEVONTE CALIXTO MD Ot Z86.718 PERSONAL HISTORY OF OTHER VENOUS THROMBO 11/15/2017 DEVONTE CALIXTO MD Ot Z87.891 PERSONAL HISTORY OF NICOTINE DEPENDENCE 11/15/2017 Ot 401.9 HYPERTENSION NOS 11/15/2017 Ot 414.00 CORON ATHEROSCLER NOS TYPE VESSEL, NATIV 11/15/2017 Ot 786.50 CHEST PAIN NOS 11/15/2017 Ot 397.0 TRICUSPID VALVE DISEASE 11/15/2017 Ot 401.9 HYPERTENSION NOS 11/15/2017 Ot 414.00 CORON ATHEROSCLER NOS TYPE VESSEL, NATIV 11/15/2017 Ot 424.0 MITRAL VALVE DISORDER 11/15/2017 Ot 786.50 CHEST PAIN NOS 11/15/2017 SOFIYA HEMPHILL, CARLY Kline Ot 496 CHR AIRWAY OBSTRUCT NEC 11/15/2017 JULIET HEMPHILL, MISAEL Little Ot 272.4 HYPERLIPIDEMIA NEC/NOS 11/15/2017 MISAEL CHUNG MD Ot 327.23 OBSTRUCTIVE SLEEP APNEA (ADULT) (PEDIATR 11/15/2017 MISAEL CHUNG MD Ot 401.9 HYPERTENSION NOS 11/15/2017 MISAEL CHUNG MD Ot 414.00 CORON ATHEROSCLER NOS TYPE VESSEL, NATIV 11/15/2017 MISAEL CHUNG MD Ot 427.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 11/15/2017 JOCELYN GARCIA APRN Ot 780.79 OTH MALAISE FATIGUE 11/15/2017 Ot V72.84 EXAM PRE- OPERATIVE NOS 11/15/2017 ALF MATHUR DO Ot R19.7 DIARRHEA, UNSPECIFIED 11/15/2017 MISAEL CHUNG MD Ot E78.2 MIXED HYPERLIPIDEMIA 11/15/2017 MISAEL CHUNG MD Ot I10 ESSENTIAL (PRIMARY) HYPERTENSION 11/15/2017 MISAEL CHUNG MD Ot I25.10 ATHSCL HEART DISEASE OF [place] CORONARY 11/15/2017 MISAEL CHUNG MD Ot I49.5 SICK SINUS SYNDROME 11/15/2017 MISAEL CHUNG MD Ot I65.23 OCCLUSION AND STENOSIS OF BILATERAL PABLO 11/15/2017 MISAEL CHUNG MD Ot R06.02 SHORTNESS OF BREATH 11/15/2017 MISAEL CHUNG MD Ot R07.9 CHEST PAIN, UNSPECIFIED 11/15/2017 ALF MATHUR DO Ot M51.36 OTHER INTERVERTEBRAL DISC DEGENERATION, 11/15/2017 ALF MATHUR DO Ot I25.10 ATHSCL HEART DISEASE OF [place] CORONARY 11/15/2017 ALF MATHUR DO Ot R07.9 CHEST PAIN, UNSPECIFIED 11/18/2017 DEVONTE CALIXTO MD Ot A08.4 VIRAL INTESTINAL INFECTION, UNSPECIFIED 11/18/2017 DEVONTE CALIXTO MD Ot E78.00 PURE HYPERCHOLESTEROLEMIA, UNSPECIFIED 11/18/2017 DEVONTE CALIXTO MD Ot F32.9 MAJOR DEPRESSIVE DISORDER, SINGLE EPISOD 11/18/2017 DEVONTE CALIXTO MD Ot F41.9 ANXIETY DISORDER, UNSPECIFIED 11/18/2017 DEVONTE CALIXTO MD Ot G40.909 EPILEPSY, UNSP, NOT INTRACTABLE, WITHOUT 11/18/2017 DEVONTE CALIXTO MD J Ot G43.909 MIGRAINE, UNSP, NOT INTRACTABLE, WITHOUT 11/18/2017 DEVONTE CALIXTO MD Ot I25.10 ATHSCL HEART DISEASE OF [place] CORONARY 11/18/2017 DEVONTE CALIXTO MD Ot J44.9 CHRONIC OBSTRUCTIVE PULMONARY DISEASE, U 11/18/2017 DEVONTE CALIXTO MD Ot K21.9 GASTRO-ESOPHAGEAL REFLUX DISEASE WITHOUT 11/18/2017 DEVONTE CALIXTO MD Ot R11.2 NAUSEA WITH VOMITING, UNSPECIFIED 11/18/2017 DEVONTE CALIXTO MD Ot Z79.82 WOOD MOLDER (CURRENT) USE OF ASPIRIN 11/18/2017 DEVONTE CALIXTO MD Ot Z86.718 PERSONAL HISTORY OF OTHER VENOUS THROMBO 11/18/2017 DEVONTE CALIXTO MD Ot Z87.891 PERSONAL HISTORY OF NICOTINE DEPENDENCE 11/21/2017 DEVONTE CALIXTO MD Ot A08.4 VIRAL INTESTINAL INFECTION, UNSPECIFIED 11/21/2017 DEVONTE CALIXTO MD Ot E78.00 PURE HYPERCHOLESTEROLEMIA, UNSPECIFIED 11/21/2017 DEVONTE CALIXTO MD Ot F32.9 MAJOR DEPRESSIVE DISORDER, SINGLE EPISOD 11/21/2017 DEVONTE CALIXTO MD Ot F41.9 ANXIETY DISORDER, UNSPECIFIED 11/21/2017 DEVONTE CALIXTO MD Ot G40.909 EPILEPSY, UNSP, NOT INTRACTABLE, WITHOUT 11/21/2017 DEVNOTE CALIXTO MD Ot G43.909 MIGRAINE, UNSP, NOT INTRACTABLE, WITHOUT 11/21/2017 DEVONTE CALIXTO MD Ot I25.10 ATHSCL HEART DISEASE OF [place] CORONARY 11/21/2017 DEVONTE CALIXTO MD Ot J44.9 CHRONIC OBSTRUCTIVE PULMONARY DISEASE, U 11/21/2017 DEVONTE CALIXTO MD, Ot K21.9 GASTRO-ESOPHAGEAL REFLUX DISEASE WITHOUT 11/21/2017 DEVONTE CALIXTO MD, Ot R11.2 NAUSEA WITH VOMITING, UNSPECIFIED 11/21/2017 DEVONTE CALIXTO MD, Ot Z79.82 [facility] (CURRENT) USE OF ASPIRIN 11/21/2017 DEVONTE CALIXTO MD, Ot Z86.718 PERSONAL HISTORY OF OTHER VENOUS THROMBO 11/21/2017 DEVONTE CALIXTO MD, Ot Z87.891 PERSONAL HISTORY OF NICOTINE DEPENDENCE 07/14/2018 MECHELLE CHIANG Ot I10 ESSENTIAL (PRIMARY) HYPERTENSION 07/14/2018 MECHELLE CHIANG Ot I25.10 ATHSCL HEART DISEASE OF [place] CORONARY 07/14/2018 MECHELLE CHIANG Ot I65.29 OCCLUSION AND STENOSIS OF UNSPECIFIED CA 07/14/2018 MECHELLE CHIANG Ot R06.02 SHORTNESS OF BREATH 07/25/2018 MECHELLE CHIANG Ot I10 ESSENTIAL (PRIMARY) HYPERTENSION 07/25/2018 MECHELLE CHIANG Ot I25.10 ATHSCL HEART DISEASE OF [place] CORONARY 07/25/2018 MECHELLE CHIANG Ot I65.23 OCCLUSION AND STENOSIS OF BILATERAL PABLO 07/25/2018 MECHELLE CHIANG Ot R06.02 SHORTNESS OF BREATH 08/14/2018 JUANITA ALBARRAN 458.29 OTHER IATROGENIC HYPOTENSION 08/14/2018 JUANITA ALBARRAN 995.29 UNSPECIFIED ADVERSE EFFECT OF OTHER DRUG, MEDICINAL AND BIOLOGICAL SUBSTANCE 08/14/2018 JUANITA ALBARRAN I95.2 HYPOTENSION DUE TO DRUGS 08/14/2018 JUANITA ALBARRAN T44.7X5A ADVERSE EFFECT OF BETA-ADRENORECEPTOR ANTAGONISTS, INIT 08/25/2018 EUGENE JOYCE MD Ot Z01.818 ENCOUNTER FOR OTHER PREPROCEDURAL EXAMIN 08/28/2018 EUGENE JOYCE MD, Ot Z01.818 ENCOUNTER FOR OTHER PREPROCEDURAL EXAMIN Procedures There is no data. Results Test Result Range Urinalysis - 10/20/16 00:31 Rapid Drug Screen,Medical - 10/20/16 00:31 RPR, Rfx Qn RPR/Confirm TP - 08/05/18 12:00 RPR Non Reactive Non Reactive Comprehensive Metabolic Panel - 08/08/17 10:05 Albumin 4.5 g/dL 3.6-5.1 ALP 143 U/L 35-130 ALT 13 U/L 6-45 Anion Gap 15 6-14 AST 18 U/L 2-40 BUN 19 mg/dL 5-25 Calcium 9.5 mg/dL 8.3-10.4 Chloride 107 mmol/L 95-114 CO2 24 mEq/L 22-33 Creat 1.26 mg/dL 0.50-1.50 eGFR 59 mL/min/1.73m2 >59 Globulin 3.1 g/dL 2.3-3.5 Glucose 104 mg/dL 70-110 Osmo 296 280-295 Potassium 4.1 mmol/L 3.5-5.3 Sodium 142 mmol/L 134-148 TBil 0.4 mg/dL 0.2-1.2 TP 7.6 g/dL 6.0-8.3 Lamotrigine (Lamictal), Serum - 08/08/17 10:05 LAMOTRIGINE, SERUM 1.3 UG/ML 2.0-20.0 Influenza virus A and B antigen detection - 11/15/17 14:15 FLU RESULT NEGATIVE FOR INFLUENZA A AND B ANTIGENS BY [facility] Complete blood count (CBC) with automated white blood cell (WBC) differential - 11/15/17 14:30 Blood leukocytes automated count (number/volume) 5.8 10*3/uL 4.3-11.0 Blood erythrocytes automated count (number/volume) 4.42 10*6/uL 4.35-5.85 Venous blood hemoglobin measurement (mass/volume) 13.3 g/dL 13.3-17.7 Blood hematocrit (volume fraction) 38 % 40-54 Automated erythrocyte mean corpuscular volume 87 [foz_us] 80-99 Automated erythrocyte mean corpuscular hemoglobin (mass per erythrocyte) 30 pg 25-34 Automated erythrocyte mean corpuscular hemoglobin concentration measurement ( mass/volume) 35 g/dL 32-36 Automated erythrocyte distribution width ratio 14.3 % 10.0-14.5 Automated blood platelet count (count/volume) 288 10*3/uL 130-400 Automated blood platelet mean volume measurement 9.5 [foz_us] 7.4-10.4 Automated blood neutrophils/100 leukocytes 61 % 42-75 Automated blood lymphocytes/100 leukocytes 25 % 12-44 Blood monocytes/100 leukocytes 12 % 0-12 Automated blood eosinophils/100 leukocytes 3 % 0-10 Automated blood basophils/100 leukocytes 0 % 0-10 Blood neutrophils automated count (number/volume) 3.5 10*3 1.8-7.8 Blood lymphocytes automated count (number/volume) 1.4 10*3 1.0-4.0 Blood monocytes automated count (number/volume) 0.7 10*3 0.0-1.0 Automated eosinophil count 0.2 10*3/uL 0.0-0.3 Automated blood basophil count (count/volume) 0.0 10*3/uL 0.0-0.1 Comprehensive metabolic panel - 11/15/17 14:30 Serum or plasma sodium measurement (moles/volume) 142 mmol/L 135-145 Serum or plasma potassium measurement (moles/volume) 4.1 mmol/L 3.6-5.0 Serum or plasma chloride measurement (moles/volume) 105 mmol/L 98-107 Carbon dioxide 26 mmol/L 21-32 Serum or plasma anion gap determination (moles/volume) 11 mmol/L 5-14 Serum or plasma urea nitrogen measurement (mass/volume) 21 mg/dL 7-18 Serum or plasma creatinine measurement (mass/volume) 1.26 mg/dL 0.60-1.30 Serum or plasma urea nitrogen/creatinine mass ratio 17 NRG Serum or plasma creatinine measurement with calculation of estimated glomerular filtration rate 59 NRG Serum or plasma glucose measurement (mass/volume) 108 mg/dL 70-105 Serum or plasma calcium measurement (mass/volume) 9.6 mg/dL 8.5-10.1 Serum or plasma total bilirubin measurement (mass/volume) 0.5 mg/dL 0.1-1.0 Serum or plasma alkaline phosphatase measurement (enzymatic activity/volume) 144 U/L 40-136 Serum or plasma aspartate aminotransferase measurement (enzymatic activity/ volume) 16 U/L 5-34 Serum or plasma alanine aminotransferase measurement (enzymatic activity/volume ) 16 U/L 0-55 Serum or plasma protein measurement (mass/volume) 7.8 g/dL 6.4-8.2 Serum or plasma albumin measurement (mass/volume) 4.6 g/dL 3.2-4.5 Magnesium - 11/15/17 14:30 Magnesium 2.1 mg/dL 1.8-2.4 Serum or plasma troponin i.cardiac measurement (mass/volume) - 11/15/17 14:30 Serum or plasma troponin i.cardiac measurement (mass/volume) < ng/ mL <0.30 Serum or plasma C reactive protein measurement (mass/volume) - 11/15/17 14:30 Serum or plasma C reactive protein measurement (mass/volume) 0.80 mg /dL 0.00-0.50 Lipase - 11/15/17 14:30 Lipase 43 U/L 8-78 Comprehensive metabolic panel - 07/10/18 09:43 Serum or plasma sodium measurement (moles/volume) 140 mmol/L 135-145 Serum or plasma potassium measurement (moles/volume) 4.7 mmol/L 3.6-5.0 Serum or plasma chloride measurement (moles/volume) 107 mmol/L 98-107 Carbon dioxide 21 mmol/L 21-32 Serum or plasma anion gap determination (moles/volume) 12 mmol/L 5-14 Serum or plasma urea nitrogen measurement (mass/volume) 19 mg/dL 7-18 Serum or plasma creatinine measurement (mass/volume) 1.15 mg/dL 0.60-1.30 Serum or plasma urea nitrogen/creatinine mass ratio 17 NRG Serum or plasma creatinine measurement with calculation of estimated glomerular filtration rate > NRG Serum or plasma glucose measurement (mass/volume) 99 mg/dL 70-105 Serum or plasma calcium measurement (mass/volume) 9.6 mg/dL 8.5-10.1 Serum or plasma total bilirubin measurement (mass/volume) 0.4 mg/dL 0.1-1.0 Serum or plasma alkaline phosphatase measurement (enzymatic activity/volume) 125 U/L 40-136 Serum or plasma aspartate aminotransferase measurement (enzymatic activity/ volume) 16 U/L 5-34 Serum or plasma alanine aminotransferase measurement (enzymatic activity/volume ) 18 U/L 0-55 Serum or plasma protein measurement (mass/volume) 7.7 g/dL 6.4-8.2 Serum or plasma albumin measurement (mass/volume) 4.6 g/dL 3.2-4.5 Lipid 1996 panel - 07/10/18 09:43 Serum or plasma triglyceride measurement (mass/volume) 236 mg/dL <150 Serum or plasma cholesterol measurement (mass/volume) 173 mg/dL < 200 Serum or plasma cholesterol in HDL measurement (mass/volume) 25 mg/ dL 40-60 Cholesterol in LDL [mass/volume] in serum or plasma by direct assay 98 mg/dL 1-129 Serum or plasma cholesterol in VLDL measurement (mass/volume) 47 mg/ dL 5-40 Cardiac Panel - 08/14/18 00:01 CK 66 U/L 26-174 CK-MB 1.2 ng/ml 0.0-9.2 Myoglobin <1.0 Result Verified by Repeat Analysis ng/ml 1.6-154.9 Troponin <0.020 ng/mL 0.0-0.4 Urinalysis - 08/14/18 00:02 Icotest N/A Negative Urine Volume Urine Volume Sufficient (10mL) Urine Yeast No Yeast present Urine-Appearance Slightly Cloudy Clear Urine-Bacteria Trace Urine-Bilirubin Negative Negative Urine-Blood Negative Negative Urine-Color Yellow Colorless-Lt. Yellow Urine-Epithelial Cells 0-5/HPF Urine-Glucose Negative Negative Urine-Ketones Trace Negative Urine-Leukocytes Negative Negative Urine-Mucus 3+ Urine-Nitrite Negative Negative Urine-Other Urine Saved if Culture Needed (48hrs from time of collection) Urine-pH 5.5 5-8.5 Urine-Protein Negative Negative Urine-RBC Rare/HPF Urine-Specific [place] >=1.030 1.000-1.030 Urine-WBC Rare/HPF Urobilinogen 1.0 0.2-1.0 Methicillin resistant Staphylococcus aureus (MRSA) screening culture - 11:10 Methicillin resistant Staphylococcus aureus (MRSA) screening culture NEG NRG Encounters ACCT No. Visit Date/Time Discharge Status Pt. Type Provider Facility Loc./Unit Complaint [id number] 08/27/2018 11:45:00 08/27/2018 23:59:59 CLS Preadmit EUGENE JOYCE MD [facility] SDC LEFT CARPAL/CUBITAL TUNNEL SYNDROME [id number] 08/22/2018 10:27:00 08/22/2018 15:30:00 DIS Outpatient EUGENE JOYCE MD [facility] PREOP LEFT CARPAL/ CUBITAL TUNNEL SYNDROME [id number] 07/10/2018 09:28:00 07/10/2018 23:59:59 CLS Outpatient MECHELLE CHIANG [facility] LAB I25.10 [id number] 12/23/2017 10:29:00 12/23/2017 23:59:59 CLS Preadmit FAIZA PETERS [facility] REHAB CERVICAL RADICULOPATHY [id number] 11/15/2017 14:03:00 11/15/2017 17:26:00 DIS Emergency DEVONTE CALIXTO MD [facility] ER CARRANZA/DOESN'T FEEL RIGHT/SOB [id number] 04/05/2017 20:12:00 04/06/2017 06:20:00 DIS Outpatient GREG XIE MD [facility] SLEEP OBSTRUCTIVE SLEEP APNEA [id number] 03/22/2017 07:02:00 03/22/2017 23:59:59 CLS Outpatient ALF MATHUR DO [facility] CARD R07.9,I25.10 [id number] 11/06/2016 12:05:00 11/06/2016 23:59:59 CLS Outpatient ALF MATHUR DO [facility] RAD TRAUMA [id number] 06/05/2016 18:27:00 06/05/2016 23:59:59 CLS Outpatient HERNANDEZ WORTHY [facility] QUICK FOOT/ANKLE PAIN [id number] 06/05/2016 19:15:00 06/05/2016 20:52:00 DIS Emergency RASHEED PULIDO APRN [facility] ER R HEEL/LEG PAIN [id number] 05/21/2016 08:02:00 05/21/2016 23:59:59 CLS Outpatient MISAEL CHUNG MD [facility] CARD CAD, CAROTID ARTERY STENOSIS, CHEST PAIN, DYSPNEA, [id number] 11/16/2015 00:08:00 11/16/2015 23:59:59 CLS Preadmit ALF MATHUR DO [facility] LAB DIARRHEA [id number] 08/17/2015 11:02:00 11/15/2015 00:01:00 DIS Outpatient ALF MATHUR DO [facility] LAB DIARRHEA [id number] 02/23/2015 20:18:00 02/24/2015 05:05:00 DIS Outpatient GREG XIE MD [facility] SLEEP APNEAS [id number] 03/10/2014 09:42:00 03/10/2014 23:59:59 CLS Outpatient JOCELYN GARCIA APRN [facility] LAB FATIGUE [id number] 09/21/2013 07:57:00 09/21/2013 23:59:59 CLS Outpatient MISAEL CHUNG MD [facility] LAB HTN,HLP,JUSTIN,SSS,CAD [id number] 02/04/2013 12:58:00 02/04/2013 23:59:59 CLS Outpatient CARLY ARRIAZA MD [facility] RT COPD [id number] 01/28/2013 19:59:00 01/29/2013 06:35:00 DIS Outpatient GREG XIE MD [facility] SLEEP OA [id number] 01/22/2013 21:00:00 01/23/2013 07:15:00 DIS Outpatient GREG XIE MD [facility] SLEEP JUSTIN [id number] 12/06/2014 06:43:00 Document Registration [id number] 12/03/2014 11:51:00 Document Registration [id number] 12/02/2014 19:35:00 Document Registration [id number] 11/19/2012 08:33:00 Document Registration [id number] 11/05/2012 11:28:00 Document Registration [id number] 10/31/2012 09:13:00 Document Registration [id number] 11/16/2011 07:46:00 Document Registration [id number] 07/09/2011 00:00:00 Document Registration [id number] 06/22/2011 05:30:00 Document Registration [id number] 06/21/2011 07:38:00 Document Registration [id number] 06/13/2011 10:41:00 Document Registration [id number] 04/15/2011 10:55:00 Document Registration [id number] 03/17/2010 09:48:00 Document Registration [id number] 02/27/2010 05:41:00 Document Registration [id number] 02/22/2010 09:10:00 Document Registration [id number] 11/28/2009 08:46:00 Document Registration [id number] 11/28/2009 08:41:00 Document Registration [id number] 06/01/2009 13:15:00 Document Registration [id number] 05/25/2009 10:58:00 Document Registration [id number] 05/10/2009 10:50:00 Document Registration [id number] 05/04/2009 10:38:00 Document Registration [id number] 08/09/2018 09:08:00 Document Registration [id number] 08/12/2017 11:10:00 Document Registration [id number] 08/13/2018 23:40:00 08/14/2018 01:34:00 [id number]/08/2017 10:02:00 08/08/2017 23:59:00 DIS Outpatient GREG XIE [id number] 10/20/2016 00:23:00 10/20/2016 02:03:00 [id number] 08/19/2016 00:00:00 08/19/2016 00:00:00 CAN Outpatient EUGENE JOYCE [id number] 10/20/2016 00:34:12 Document Registration
--- NOTE | 2018-09-17 14:35 | OPERATIVE REPORT ---
DATE OF SERVICE: 09/17/2018 PREOPERATIVE DIAGNOSES: 1. Right cubital tunnel syndrome. 2. Right carpal tunnel syndrome. POSTOPERATIVE DIAGNOSES: 1. Right cubital tunnel syndrome. 2. Right carpal tunnel syndrome. PROCEDURES: 1. Right cubital tunnel release. 2. Right carpal tunnel release. SURGEON: Eugene Joyce MD. RETAIL ADMINISTRATIVE ASSISTANT: BRIA Flores, who assisted throughout the procedure and closed the incisions. ANESTHESIA: General endotracheal by , SIGN FABRICATOR. TOURNIQUET TIME: 12 minutes at 250 mmHg. ESTIMATED BLOOD LOSS: Minimal. DRAINS: None. COMPLICATIONS: None. POSTOPERATIVE PLAN: Splint wear for 2 weeks. The patient was transferred to the recovery room awake and stable condition. STATEMENT OF MEDICAL NECESSITY: The patient is a 58-year-old right hand dominant gentleman with the complaints of left hand pain and paresthesias. He had undergone EMG nerve conduction study, which revealed evidence of left carpal and cubital tunnel syndromes. He had a markedly positive elbow flexion test, positive Tinel's at the cubital tunnel and positive Tinel's at the carpal tunnel. Due to functional impairment and failure to improve with conservative measures, the patient elected to proceed with surgical intervention. DESCRIPTION OF PROCEDURE: After risks and benefits of the procedure were discussed and questions were answered, an informed consent was signed and placed on the chart. The operative site was confirmed in the preoperative holding area and initialed by the surgeon. The patient was then transported to the operating room and after adequate levels of general endotracheal anesthetic were obtained, a timeout was called confirming the operative site. The left lower extremity was prepped and draped in the usual sterile fashion with the arm elevated, tourniquet inflated to 250 mmHg. An L-shaped incision was made posterior to the medial epicondyle. The underlying soft tissues were carefully dissected. The ulnar nerve was identified proximal to the medial epicondyle and dissected free 2.9 cm proximally. This was then dissected through the cubital tunnel being careful to protect the ulnar nerve throughout the procedure. This was fully released into the flexor/pronator mass. The elbow was then taken through a range of motion with no subluxation of the nerve noted; therefore transposition was not performed. This wound was then packed. Attention was then turned to the carpal tunnel where a longitudinal incision was made in line with the radial border of the ring finger over the transverse carpal ligament. The underlying soft tissues were sharply dissected. The transverse carpal ligament was identified and sharply incised by pushing through with the scalpel blade and while carefully protecting the median nerve proximally. Proximally, the transverse carpal ligament spread above and below with dissection scissors and opened while protecting the median nerve block with the slightly open scissor edges. This was confirmed fully freed with a freer. The tourniquet was deflated for a total tourniquet time of 12 minutes. Pressure was used for hemostasis. Both wounds were copiously irrigated. A 3-0 Vicryl was used to reapproximate the subcutaneous tissue at the elbow incision and both the skin incisions were closed with 4-0 nylon in a running alternating horizontal mattress fashion. A soft dressing and wrist splint were applied and the patient was transported to the recovery room awake and stable condition. Job ID: [id number] DocumentID: [id number] Dictated Date: 09/17/2018 11:12:48 Tax Credit Leasing Consultant Date: 09/17/2018 14:34:42 Dictated By: EUGENE JOYCE MD
--- NOTE | 2018-09-17 15:58 | Anesthesia-General Post-Op ---
General Patient Condition Mental Status/LOC: Same as Preop Cardiovascular: Satisfactory Nausea/Vomiting: Absent Respiratory: Satisfactory Pain: Controlled Complications: Absent Post Op Complications Complications None Follow Up Care/Instructions Patient Instructions None needed. Anesthesia/Patient Condition Patient Condition Patient was seen after the procedure and he was doing well, no complaints, stable vital signs, no apparent adverse anesthesia problems. SELVIN DOSS DO Sep 17, 2018 15:58
== END 2018-09-17 13:50 | disposition home or self-care (01) ==
LOC: SDC 09:08
PROVIDERS: ATTEND Orthopaedic Surgery
DX: G56.21 Lesion of ulnar nerve, right upper limb (principal); G56.01 Carpal tunnel syndrome, right upper limb; G40.909 Epilepsy, unspecified, not intractable, without status epilepticus; J44.9 Chronic obstructive pulmonary disease, unspecified; G47.33 Obstructive sleep apnea (adult) (pediatric); I10 Essential (primary) hypertension; E78.5 Hyperlipidemia, unspecified; I25.10 Atherosclerotic heart disease of native coronary artery without angina pectoris; F41.9 Anxiety disorder, unspecified; F32.9 Major depressive disorder, single episode, unspecified; K21.9 Gastro-esophageal reflux disease without esophagitis; Z87.891 Personal history of nicotine dependence; Z79.899 Other long term (current) drug therapy; Z79.82 Long term (current) use of aspirin

== ENCOUNTER → 2018-12-05 | Outpatient (CLI) | payer BC ==
[~2018-12-05] MED LIST changes: -GABA600T2 PO; +GBPN600T PO; -GEMF600T4 PO; +GEMF600T8 PO; +HYDR-3816 PO; +LOSA50TA63 PO; -LOSA50TA7 PO
== END | disposition home or self-care (01) ==
LOC: PREOP 05:34
PROVIDERS: ATTEND Orthopaedic Surgery
DX: Z01.818 Encounter for other preprocedural examination (principal)

== ENCOUNTER → 2019-08-10 | Outpatient (CLI) | payer BC ==
--- NOTE | 2019-08-10 11:11 | NUR ---
Patient was given [facility] solultion for cardiac stress echo. The patient tolerated the procedure with no complaints
== END ==
LOC: CARD 09:30
PROVIDERS: ATTEND Internal Medicine Cardiovascular Disease
DX: I25.10 Atherosclerotic heart disease of native coronary artery without angina pectoris (principal); I65.29 Occlusion and stenosis of unspecified carotid artery; K21.9 Gastro-esophageal reflux disease without esophagitis; I10 Essential (primary) hypertension

== ENCOUNTER → 2020-04-05 | Outpatient (CLI) | payer BC ==
[~2020-04-05] MED LIST changes: +HYDR-34 PO; -HYDR-3816 PO
--- NOTE | 2020-04-05 08:43 | Diagnostic Imaging Report ---
EXAMINATION: CT head without contrast. TECHNIQUE: Multiple contiguous axial images were obtained through the brain without the use of intravenous contrast. All CT scans use one or more of the following dose optimizing techniques: automated exposure control, MA and/or KvP adjustment based on a patient size and exam type, or iterative reconstruction. HISTORY: Headache COMPARISON: 07/16/2007 FINDINGS: The crowley-white matter differentiation is normal. No mass effect or midline shift. The ventricles are normal in size and configuration. Basilar cisterns are patent. There are no intra- or extra-axial fluid collections. There is no intracranial hemorrhage. The orbits are normal. Paranasal sinuses are normal. Mastoid air cells are clear. No soft tissue abnormality is seen. No osseus lesions or fractures are seen. IMPRESSION: 1. No acute intracranial abnormality. Dictated by: Dictated on workstation # [id number]
== END ==
LOC: RAD 07:59
PROVIDERS: ATTEND Internal Medicine
DX: R51 Headache (principal); R56.9 Unspecified convulsions; E78.2 Mixed hyperlipidemia
CPT/HCPCS: 70450

== ENCOUNTER 2020-04-23 15:28 | Emergency (ER) | payer BC ==
[~2020-04-23] VITALS: Ht 187.9 cm; Wt 154.0 kg
[2020-04-23 15:34] VITALS: BP 140/85
--- NOTE | 2020-04-23 15:43 | ED Lower Extremity ---
General Stated Complaint: RT LEG PAIN,SWELLING Source: patient Exam Limitations: no limitations History of Present Illness Date Seen by Provider: Apr 23, 2020 Time Seen by Provider: 15:41 Initial Comments To with right leg pain and swelling for 1 week. No known injury. It starts in the low back/right buttock and radiates all the way down the right leg. History of 3 blood clots in the right leg previously but he is not on anticoagulants. Onset: last week Severity: moderate Pain/Injury Location: right leg Method of Injury: unknown Modifying Factors: Worse With Movement Allergies and Home Medications Allergies Coded Allergies: levofloxacin (Verified Allergy, Unknown, 07/16/07) Home Medications Alprazolam 0.25 Mg Tablet, 0.25-0.5 MG PO Q6H PRN for ANXIETY, (Reported) Anastrozole 1 Mg Tablet, 0.5 MG PO WEEK, (Reported) Aspirin 81 Mg Tab.chew, 81 MG PO DAILY, (Reported) Cholecalciferol 5,000 Unit Capsule, 5,000 UNIT PO DAILY, (Reported) Diclofenac Sodium/Misoprostol 1 Each Tab.ir.dr, 1 EACH PO BID, (Reported) Gabapentin 600 Mg Tablet, 600 MG PO TID, (Reported) Garlic 1,000 Mg Capsule, 1,000 MG PO DAILY, (Reported) Gemfibrozil 600 Mg Tablet, 600 MG PO BID, (Reported) Hydrocodone Bit/Acetaminophen 1 Each Tablet, 1 EACH PO Q4H PRN for PAIN-MODERATE Prescribed by: ANALISA CARCAMO on 09/17/18 1257 Lamotrigine 300 Mg Tab.er.24, 300 MG PO DAILY, (Reported) Losartan Potassium 50 Mg Tablet, 50 MG PO DAILY, (Reported) Metoprolol Tartrate 25 Mg Tablet, 25 MG PO BID, (Reported) Pantoprazole Sodium 40 Mg Tablet.dr, 40 MG PO BID, (Reported) Potassium Chloride 10 Meq Tablet.er, 10 MEQ PO DAILY, (Reported) Venlafaxine HCl 150 Mg Tab.er.24, 150 MG PO DAILY, (Reported) Patient Home Medication List Home Medication List Reviewed: Yes Review of Systems Constitutional: see HPI EENTM: see HPI Respiratory: no symptoms reported Cardiovascular: no symptoms reported Genitourinary: no symptoms reported Musculoskeletal: no symptoms reported Skin: no symptoms reported Psychiatric/Neurological: No Symptoms Reported Past Ejlqhmn-Aqtpdy-Hrqiqc Hx Patient Social History Type Used: Cigarettes Former Smoker, Quit: Aug 22, 2002 Recent Foreign Travel: No Contact w/Someone Who Travel: No Recent Hopitalizations: No Seasonal Allergies Seasonal Allergies: No Past Medical History Surgeries: Yes (COMPRESSED NERVE R ARM, HERNIA REPAIR, HEART CATHS) Abdominal, Gallbladder Respiratory: Yes Sleep Apnea, COPD Currently Using CPAP: Yes Cardiac: Yes Coronary Artery Disease, Deep Vein Thrombosis, High Cholesterol Neurological: Yes Headaches /Migraines, Seizure Disorder Reproductive Disorders: No Sexually Transmitted Disease: No HIV/AIDS: No Gastrointestinal: Yes Gastroesophageal Reflux, Chronic Constipation, Chronic Diarrhea, Ulcer Musculoskeletal: No Arthritis, Chronic Back Pain Endocrine: No Loss of Vision: Bilateral Hearing Impairment: Denies Cancer: No Psychosocial: Yes Anxiety, Depression Integumentary: No Blood Disorders: No Adverse Reaction/Blood Tranf: No Physical Exam Vital Signs Capillary Refill : Height, Weight, BMI Height: 6'3.00" Weight: 345lbs. 3.0oz. 156.096825hr; 43.2 BMI Method:Stated General Appearance: WD/WN, no apparent distress HEENT: PERRL/EOMI, normal ENT inspection Neck: non-tender, full range of motion Respiratory: no respiratory distress, no accessory muscle use Hips: bilateral hip non-tender, bilateral hip normal inspection, bilateral hip normal range of motion Legs: right leg pain, right leg soft tissue tenderness, right leg other (no appreciable swelling erythema or ecchymosis. He has equal and strong dorsalis pedis pulse bilaterally) Knees: bilateral knee non-tender, bilateral knee normal inspection, bilateral knee normal range of motion Ankles: bilateral ankle non-tender, bilateral ankle normal inspection, bilateral ankle normal range of motion Feet: bilateral foot non-tender, bilateral foot normal inspection, bilateral foot normal range of motion Neurologic/Psychiatric: alert, normal mood/affect, oriented x 3 Skin: normal color, warm/dry Progress/Results/Core Measures Results/Orders Lab Results Laboratory Tests Test 04/23/20 15:45 Range/Units D-Dimer 0.40 0.00-0.49 UG/ML Sodium Level 139 135-145 MMOL/L Potassium Level 4.1 3.6-5.0 MMOL/L Chloride Level 106 98-107 MMOL/L Carbon Dioxide Level 20 L 21-32 MMOL/L Anion Gap 13 5-14 MMOL/L Glucose Level 125 H 70-105 MG/DL Calcium Level 8.8 8.5-10.1 MG/DL Corrected Calcium 8.6 8.5-10.1 MG/DL Total Bilirubin 0.4 0.1-1.0 MG/DL Total Protein 7.3 6.4-8.2 GM/DL Albumin 4.2 3.2-4.5 GM/DL My Orders Orders - RASHEED PULIDO APRN Fibrin Degradation Products (04/23/20 15:37) Comprehensive Metabolic Panel (04/23/20 15:37) Cbc With Automated Diff (04/23/20 15:37) Orphenadrine Inj (Ed Only) (Norflex Inje (04/23/20 15:45) Ketorolac Injection (Toradol Injection) (04/23/20 15:45) Hydrocodone/Apap 5/325 Tablet (Lortab 5 (04/23/20 15:45) Ketorolac Injection (Toradol Injection) (04/23/20 16:00) Orphenadrine Inj (Ed Only) (Norflex Inje (04/23/20 16:00) Medications Given in ED Current Medications Medications Dose Ordered Sig/Raya Route Start Time Stop Time Status Last Admin Dose Admin Acetaminophen/ Hydrocodone Bitart 1 tab ONCE ONCE PO 04/23/20 15:45 04/23/20 15:46 DC 04/23/20 15:54 1 TAB Ketorolac Tromethamine 15 mg ONCE ONCE IVP 04/23/20 16:00 04/23/20 16:01 DC 04/23/20 15:56 15 MG Orphenadrine Citrate 60 mg ONCE ONCE IV 04/23/20 16:00 04/23/20 16:01 DC 04/23/20 16:00 60 MG Departure Impression Primary Impression: Sciatic nerve pain Qualified Codes: M54.31 - Sciatica, right side Disposition: 01 HOME, SELF-CARE Condition: Stable Departure-Patient Inst. Decision time for Depature: 16:12 Referrals: ALF MATHUR DO (PCP/Family) Primary Care Physician Patient Instructions: Sciatica Add. Discharge Instructions: Prednisone and pain medication as directed. Follow-up with your doctor next week. Return to ER for any worsening. Scripts Prednisone (Prednisone) 20 Mg Tab 40 MG PO DAILY, #8 TAB 0 Refills Prov: RASHEED PULIDO APRN 04/23/20 RASHEED PULIDO APRN Apr 23, 2020 15:42
[2020-04-23] MEDS ORDERED: KETOROLAC 30 MG/ML VIAL IM ONE (15:45)
[2020-04-23] MEDS ORDERED: ORPHENADRINE 60 MG/2 ML (NORFLEX) AMP (ED ONLY) IM ONE (15:45)
[2020-04-23] MEDS ORDERED: HYDROcodone/APAP 5 MG/325 MG (LORTAB) TAB PO ONE (15:45)
[2020-04-23] MEDS ORDERED: KETOROLAC 30 MG/ML VIAL IVP ONE (16:00)
[2020-04-23] MEDS ORDERED: ORPHENADRINE 60 MG/2 ML (NORFLEX) AMP (ED ONLY) IV ONE (16:00)
[2020-04-23 16:05] LABS: ALBUMIN 4.2 GM/DL (3.2-4.5); CHLORIDE 106 MMOL/L (98-107)
[2020-04-23 16:06] LABS: POTASSIUM 4.1 MMOL/L (3.6-5.0); SODIUM 139 MMOL/L (135-145)
[2020-04-23 16:07] LABS: CALCIUM 8.8 MG/DL (8.5-10.1)
[2020-04-23 16:08] LABS: GLUCOSE 125 MG/DL (70-105); TOTAL PROTEIN 7.3 GM/DL (6.4-8.2)
[2020-04-23 16:09] LABS: CARBON DIOXIDE 20 MMOL/L (21-32)
--- NOTE | 2020-04-23 16:09 | NUR ---
Spoke to pt's via phone regarding pt's plan of care.
[2020-04-23 16:10] LABS: BILIRUBIN,TOTAL 0.4 MG/DL (0.1-1.0)
[2020-04-23 16:11] LABS: ALKALINE PHOSPHATASE 99 U/L (40-136)
[2020-04-23 16:12] LABS: CREATININE SERUM 1.13 MG/DL (0.60-1.30); GFR ESTIMATED > 60
[2020-04-23 16:13] LABS: BUN/CREATININE RATIO 16
[2020-04-23 16:14] LABS: ALANINE AMINOTRANSFERASE 18 U/L (0-55)
[2020-04-23] MEDS ORDERED: HYDR-3870 PO (16:14)
[2020-04-23] MEDS ORDERED: PRD20T PO (16:14)
--- OUTSIDE RECORDS SUMMARY | 2020-04-23 16:14 | XMS REPORT ---
Author Author [employer] [facility] [place] [employer] Address [address] [address] Care Team Providers Care Supervisor [employer] Name Role Phone ALF MATHUR Unavailable MISAEL CHUNG Unavailable ALF MATHUR Unavailable ALF MATHUR Unavailable ALF MATHUR DO Unavailable Unavailable DEVONTE CALIXTO MD Unavailable Unavailable EL HEMPHILL, THERESA Rodriguez Unavailable Unavailable MISAEL CHUNG MD Unavailable Unavailable MISAEL CHUNG MD Unavailable Unavailable GREG XIE MD Unavailable Unavailable MISAEL CHUNG MD Unavailable Unavailable MISAEL CHUNG MD Unavailable Unavailable THERESA SPRING MD Unavailable Unavailable ALF MATHUR DO Unavailable Unavailable SOFIYA HEMPHILL, CARLY Kline Unavailable Unavailable GREG XIE MD Unavailable Unavailable RASHEED PULIDO APRN Unavailable Unavailable JOCELYN GARCIA APRN Unavailable Unavailable ALF MATHUR Unavailable RASHEED PULIDO Unavailable Unavailable DANIELA, JAREN-DAVID Unavailable Unavailable DANIELA JAREN-DAVID Unavailable Unavailable GEM MATHUR DNP Unavailable UnavailGREG Correia MD Unavailable Unavailable JUANITA ALBARRAN Unavailable Unavailable BOBO, KALEB Unavailable Unavailable BOBO, KALEB Unavailable Unavailable GREG XIE MD Unavailable Unavailable GREG XIE MD Unavailable Unavailable IZABELLA HEMPHILL, TAYLOR Nolasco Unavailable Unavailable MECHELLE CHIANG Unavailable Unavailab Muna HEMPHILL, EUGENE Celestin Unavailable Unavailable RASHEED PULIDO APRN Unavailable Unavailable Unavailable Unavailable Unavailable Unavailable Unavailable Unavailable Allergies The data below is from unstructured sources Allergen Type Severity Reaction Status Last Updated levofloxacin Allergy Unk nown Active 07/16/07 Encounters Encounter Date Encounter Type Encounter Diagnosis Care Provider Facility Start: Emergency department TAYLOR PAREKH MD [facility] [address] 04-23-2020 patient visit [facility] Start: Patient encounter ALF MATHUR DO [facility] [address] 04-05-2020 procedure [facility] Start: Patient encounter GREG XIE MD [facility] #1 01-12-2020 procedure of [facility] End: 01-12-2020 Start: Patient encounter GREG XIE MD [facility] #1 09-08-2019 procedure of [facility] ([id number]) End: 09-08-2019 Start: Patient encounter MISAEL CHUNG MD [facility] [address] 08-10-2019 [facility] Start: Patient encounter [facility] 07-07-2019 procedure of [facility] ([id number]) End: 07-07-2019 Start: Patient encounter EUGENE JOYCE MD Not Avai lable ([id number]) 12-05-2018 procedure Start: Patient encounter EUGENE JOYCE MD [facility] [address] 12-05-2018 procedure [facility] Start: Patient encounter GREG XIE MD [facility] #1 11-13-2018 procedure of [facility] ([id number]) End: 11-14-2018 Start: Admission to same day EUGENE holguin [address] 09-17-2018 surgery center Work Phone: [facility] ([phone]) End: 09-17-2018 Start: Patient encounter EUGENE JOYCE MD Not Avai lable ([id number]) 09-17-2018 procedure End: 09-17-2018 Start: Patient encounter EUGENE JOYCE MD [facility] [address] 09-17-2018 procedure [facility] End: 09-17-2018 Start: Patient encounter EUGENE Betts Avail able ([id number]) 08-22-2018 procedure End: 08-22-2018 Start: Patient encounter EUGENE JOYCE MD [facility] Vi a 08-22-2018 procedure [facility] End: 08-22-2018 Start: Patient encounter [facility] 08-14-2018 procedure of [facility] ([id number]) End: 08-14-2018 Start: Patient encounter GREG XIE MD [facility] #1 07-22-2018 procedure of [facility] ([id number]) End: 07-23-2018 Start: Patient encounter MECHELLE Not Availab le ([id number]) 07-10-2018 procedure [facility] Start: Patient encounter MECHELLE Charles [facility] [place] is 07-10-2018 procedure [facility] Start: Patient encounter GREG XIE MD [facility] #1 01-02-2018 procedure of [facility] ([id number]) End: 01-03-2018 Start: Patient encounter NA NA Not Availab le ([id number]) 11-15-2017 procedure Start: Emergency department DEVONTE CALIXTO MD [facility] V [facility] 11-15-2017 patient visit [facility] End: 11-15-2017 Start: Patient encounter GREG XIE Not Availab le ([id number]) 08-08-2017 procedure End: 08-09-2017 Start: Patient encounter GREG XIE MD [facility] 04-05-2017 [facility] End: 04-06-2017 Start: Patient encounter ALF MATHUR DO [facility] 03-22-2017 [facility] Start: Patient encounter NA NA Not Availab le ([id number]) 11-06-2016 procedure Start: Patient encounter ALF MATHUR DO [facility] 11-06-2016 [facility] Start: Patient encounter RASHEED PULIDO Not Availab le ([id number]) 10-20-2016 procedure End: 10-20-2016 Start: Emergency department RASHEED PULIDO HEMALATHA [facility] [address] 06-05-2016 patient visit [facility] End: 06-05-2016 Start: Patient encounter MISAEL CHUNG MD [facility] 05-21-2016 [facility] Start: Patient encounter ALF MATHUR DO [facility] 11-16-2015 [facility] Start: Patient encounter NA NA Not Availab le ([id number]) 08-17-2015 procedure End: 11-15-2015 Start: Patient encounter ALF Anabel MATHUR DO [facility] [address] 08-17-2015 [facility] End: 11-14-2015 Start: Patient encounter NA NA Not Availab le ([id number]) 02-23-2015 procedure End: 02-24-2015 Start: Patient encounter NA NA Not Availab le ([id number]) 12-06-2014 procedure End: 12-06-2014 Start: Patient encounter THERESA SPRING MD [facility] [address] 12-06-2014 procedure [facility] End: 12-06-2014 Start: Evaluation and MISAEL CHUNG MD Not Available ([id number]) 12-02-2014 management of inpatient End: 12-03-2014 Start: Patient encounter NA NA Not Availab le ([id number]) 03-10-2014 procedure Start: Patient encounter NA NA Not Availab le ([id number]) 09-21-2013 procedure Start: Patient encounter NA NA Not Availab le ([id number]) 02-04-2013 procedure Start: Patient encounter NA NA Not Availab le ([id number]) 01-28-2013 procedure End: 01-29-2013 Start: Patient encounter NA NA Not Availab le ([id number]) 01-22-2013 procedure End: 01-23-2013 Start: Patient encounter NA NA Not Availab le ([id number]) 11-19-2012 procedure End: 11-19-2012 Start: Patient encounter MISAEL CHUNG MD Not Availa ble ([id number]) 11-05-2012 procedure Start: Patient encounter MISAEL CHUNG MD Not Availa ble ([id number]) 10-31-2012 procedure Start: Patient encounter MISAEL CHUNG MD Not Availa ble ([id number]) 11-16-2011 procedure Start: Patient encounter GEM MATHUR Not Avai lable ([id number]) 07-09-2011 procedure Start: Patient encounter MISAEL CHUNG MD Not Availa ble ([id number]) 06-22-2011 procedure End: 06-22-2011 Start: Patient encounter MISAEL CHUNG MD Not Availa ble ([id number]) 06-21-2011 procedure Start: Patient encounter MISAEL CHUNG MD Not Availa ble ([id number]) 06-13-2011 procedure Start: Patient encounter GEM MATHUR Not Avai lable ([id number]) 04-15-2011 procedure End: 07-08-2011 EXAM PRE-OPERATIVE Pre-operative THERESA SPRING MD [facility] [address] NOS examination, [facility] unspecified ([id number]) ENCOUNTER FOR OTHER Encounter for other EUGENE JOYCE MD [facility] [address] PREPROCEDURAL EXAMIN preprocedural [facility] urg examination ([id number]) Pre-procedural MISAEL CHUNG MD Not Available ([phone]) laboratory examination Medical Equipment No Information Goals No Information Immunizations The data below is from unstructured sourcesNo immunization records.No immunization records.No immunization records.No immunization records.No immunization records.No immunization records.No immunization records.No immunization records.No immunization records. Interventions No Information Medications Medication Drug Dates Sig Sig (Original) Class(es) (Normalized) Acetaminophen/Hydrocodon Start: Acetaminophe n/Hydrocodone Bitart e Bitart 11-15-2017 (Hydrocodone/Acetam inophen 5/325MG (Hydrocodone/Acetaminoph Tablet) 1 Tab Tab, 1 Each Oral Every 6 en 5/325MG Tablet) 1 Tab End: Hours as nee ded for Breakthrough Pain Tab, 1 Each Oral 08-26-2018 11/15/17 Discontinu ed (2 sources) ALPRAZolam 0.25 mg oral Benzodiaze take 0.25-0.5 Alpraz olam 0.25 Mg Tablet 0.25-0.5 Mg tablet pine mg by mouth ORAL Every 6 Ho urs as needed for Anxiety (2 sources) every six hours as needed for anxiety anastrozole 1 mg oral Aromatase take 1 tablet Anastroz ole 1 Mg Tablet 0.5 Mg ORAL tablet Inhibitor by mouth every Weekly (2 sources) week Aspirin (Aspirin Ec 81 End: Aspirin (Aspir in Ec 81 Mg) 81 Mg Tabec, Mg) 81 Mg Tabec, 81 Mg 08-26-2018 81 Mg Oral Paula ly Discontinued Oral (2 sources) Cholecalciferol (Vitamin take 1 capsule Cholecalcif shreyas (Vitamin D) 5,000 Unit D) 5,000 Unit Capsule by mouth once Capsule 5,000 Unit ORAL Daily (2 sources) daily diclofenac sodium 75 mg Nonsteroid take 75-200 Diclof enac Sodium/Misoprostol / miSOPROStol 0.2 mg al tablets by (Diclofen ac-Misoprost 75-200 Tb) 1 Each delayed release oral Anti-infla mouth twice Tab.ir.dr 1 Each ORAL Twice A Day tablet mmatory daily (2 sources) Drug, Prostaglan din E1 Analog losartan potassium 50 mg Angiotensi take 1 tablet Losar mckenzie Potassium 50 Mg Tablet 50 Mg oral tablet n 2 by mouth once ORAL Daily (2 sources) Receptor daily Benjamin metoprolol tartrate 25 beta-Adren take 1 tablet Metopro lol Tartrate 25 Mg Tablet 25 Mg mg oral tablet ergic by mouth twice ORAL Twice A Da y (2 sources) Benjamin daily Nitroglycerin End: Nitroglycerin (Nitr oquick) 0.4 Mg (Nitroquick) 0.4 Mg 08-26-2018 Tab.subl, 0.4 Mg Sublingual Discontinued Tab.subl, 0.4 Mg Sublingual (2 sources) Payers Date Payer Normalized Payer Policy ID [facility] Plan of Treatment The data below is from unstructured sources Prescriptions See Medication Section Discharge Date 12/03/14 10:30am Instructions/Education Provided 2 Gr am Sodium Diet (DC) Prescriptions See Medications Sectio n Referrals (Unspecified) Reason(s) for Referral: Dr Spring Office will call this afternoon, if you have any questions call the office at [phone] Discharge Date 12/03/14 9:33am Disposition 09 ADMITTED INPATIENT Condition at Discharge Stable Instructions/Education Provided 2 Gr am Sodium Diet (DC) Prescriptions See Medications Sectio n Referrals ALF MATHUR DO (Uns pecified) Primary Care Physician Reason(s) for Referral: Dr Spring Office will call this afternoon, if you have any questions call the office at [phone] Discharge Date 04/06/17 6:20am Prescriptions See Medication Section Discharge Date 08/22/18 3:30pm Prescriptions See Medication Section Discharge Date 09/17/18 1:50pm Instructions/Education Provided ANES THESIA INSTRUCTIONS POSTOP DR. LAGUNACARPAL TUNNEL INST Prescriptions See Medication Section Discharge Date 09/17/18 1:50pm Instructions/Education Provided ANES THESIA INSTRUCTIONS POSTOP DR. LAGUNACARPAL TUNNEL INST Prescriptions See Medication Section Problems Active Problems Problem Problem Date Last Documented Episodic/Chr Provider Classificati Recorded Date onic on Abdominal Diaphragmatic hernia without 04-23-2020 Episodic THERESA hernia mention of obstruction or gangrene EL HEMPHILL (5 sources) Anxiety Anxiety disorder, unspecified 04-23-2020 Chronic DEVONTE DURGA disorders (11 sources) Cardiac Sick sinus syndrome ; Translations: 04-23-2020 Chr onic NA NA dysrhythmias [Sinoatrial node dysfunctio n] (9 sources) Chronic Chronic obstructive pulmonary 04-23-2020 Chronic NA NA obstructive disease, unspecified ; pulmonary Translations: [Chronic airw ay disease and obstruction, not elsewhere bronchiectas classified] is (21 sources) 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 Chroni c MISAEL CHUNG atherosclero [place] coronary artery without MD sis and angina pectoris ; Translati ons: other heart [Coronary atherosclerosis o f [place] disease coronary artery] (21 sources) Disorders of Pure hypercholesterolemia, 04-23-2020 Chronic NA NA lipid unspecified ; Translations: [Other metabolism and unspecified hyperlipide luis armando] (20 sources) Epilepsy; Epilepsy, unspecified, not 04-23-2020 Chronic RASHEED PULIDO convulsions intractable, without status (24 sources) epilepticus ; Translations: [EPILEPSY, UNSPECIFIED, WITHOUT MENTION OF INTRACTABLE EPILEPSY] Epilepsy; Unspecified convulsions 04-06-2020 Episodic WI LLIAM convulsions MATHUR DO (4 sources) Esophageal Gastro-esophageal reflux disease 04-23-2020 Chroni c RASHEED PULIDO disorders without esophagitis ; Trans lations: (25 sources) [ESOPHAGEAL REFLUX] Essential Unspecified essential hypertension 04-23-2020 Senior C Software Engineer blu MISAEL CHUNG hypertension ; Translations: [Essential MD (21 sources) (primary) hypertension] Gastritis Other specified gastritis, without 04-23-2020 Epis dawit CARDENAS and mention of hemorrhage EL HEMPHILL duodenitis (5 sources) Headache; Migraine, unspecified, not 04-23-2020 Chronic DEVONTE DURGA including intractable, without status MD migraine migrainosus (6 sources) Headache; Headache 04-06-2020 Episodic ALF including MATHUR DO migraine (4 sources) Heart valve Diseases of tricuspid valve ; Chronic BASHAR JUILET disorders Translations: [TRICUSPID VALVE MD (5 sources) DISEASE] Intestinal Viral intestinal infection, 04-23-2020 Episodic DEVONTE DURGA infection unspecified MD (6 sources) Malaise and Other malaise and fatigue Episodic NA NA fatigue (4 sources) Mood Major depressive disorder, single 04-23-2020 Chron ic DEVONTE DURGA disorders episode, unspecified MD (11 sources) Nausea and Nausea with vomiting, unspecified 04-23-2020 Episo dic DEVONTE DURGA vomiting MD (6 sources) Occlusion or Occlusion and stenosis of carotid 04-23-2020 Senior C Software Engineer blu NA NA stenosis of artery without mention of c erebral precerebral infarction ; Translations: arteries [Occlusion and stenosis of (17 sources) bilateral carotid arteries] Other care home (current) use of aspirin 04-23-2020 Epis dawit PULIDO aftercare ; Translations: [OTHER PENITENTIARY AP RN (16 sources) (CURRENT) DRUG THERAPY] Other Long-term (current) use of aspirin Episodic MISAEL CHUNG aftercare ; Translations: [Long-term MD (7 sources) (current) use of other medi cations] Other Other regional intermodal truck driver (current) drug 04-23-2020 Episodic RASHEED PULIDO aftercare therapy INTERIOR WIRER (9 sources) Other Pain in right lower leg ; 04-23-2020 Episodic RASHEED PULIDO connective Translations: [ACHILLES TENDINITIS, INTERIOR WIRER tissue RIGHT LEG] disease (5 sources) Other Achilles tendinitis, right leg 04-23-2020 Episodic RASHEED PULIDO connective INTERIOR WIRER tissue disease (4 sources) Other Diarrhea, unspecified 04-23-2020 Episodic WILL GEMINI gastrointest MATHUR DO inal disorders (10 sources) Other lower Other respiratory abnormalities 04-23-2020 Episodi c MISAEL CHUNG respiratory disease (7 sources) Other lower Shortness of breath 04-23-2020 Episodic MISAEL CHUNG respiratory MD disease (10 sources) Other Carpal tunnel syndrome, right upper 04-23-2020 Chr onic EUGENE nervous limb MARIA DEL CAMREN HEMPHILL system disorders (5 sources) Other Lesion of ulnar nerve, right upper 04-23-2020 Senior C Software Engineer blu EUGENE nervous limb MARIA DEL CARMEN HEMPHILL system disorders (5 sources) Other Abnormal cardiovascular function Episodic MISAEL CHUNG screening study, unspecified ; Translations: for [Other nonspecific abnormal results suspected of function study of cardio vascular conditions system] (not mental disorders or infectious disease) (5 sources) Phlebitis; Personal history of other venous 04-23-2020 Episod ic DEVONTE DURGA thrombophleb thrombosis and embolism itis and thromboembol ism (6 sources) Residual Obstructive sleep apnea 04-23-2020 Chronic NA NA codes; (adult)(pediatric) unclassified (20 sources) Residual Obstructive sleep apnea (adult) 04-23-2020 Chronic GREG codes; (pediatric) ANNE-MARIE HEMPHILL unclassified (11 sources) Screening Personal history of nicotine 04-23-2020 Episodic DEVONTE DURGA and history dependence MD of mental health and substance abuse codes (11 sources) Spondylosis; Other intervertebral disc 04-23-2020 Chronic ALF intervertebr degeneration, lumbar region SULLIVA N DO al disc disorders; other back problems (6 sources) Past or Other Problems Problem Problem Date Last Documented Episodic/Chr Provider Classificati Recorded Date onic on Complication Hypotension due to drugs ; Episodic T ELVIN s of Translations: [OTHER IATROGENIC BAT TAGLER surgical HYPOTENSION] procedures or medical care (18 sources) E Codes: Adverse effect of Episodic JUANITA Adverse beta-adrenoreceptor antagonists, BA TTAGLER effects of initial encounter ; Transla tions: medical [UNSPECIFIED ADVERSE EFFECT OF drugs OTHER DRUG, MEDICINAL AND (19 sources) BIOLOGICAL SUBSTANCE] Immunization Contact with or exposure to other Episodic GEM s and communicable diseases MATHUR screening for infectious disease (2 sources) Other lower Shortness of breath Episodic MISAEL VILLALOBOS respiratory MD disease (1 source) Superficial Abrasion, left knee, initial Episodic PETER PULIDO injury; encounter ; Translations: contusion [ABRASION, RIGHT KNEE, INIT IAL (11 sources) ENCOUNTER] Procedures Date Procedure Procedure Detail Performing Cl inician Start: Decompression of EUGENE JOYCE 09-17-2018 median nerve Work Phone: Results Test Name Value Interpreta Reference Facilit Date tion Range y Time not yet categorized on 2019-07-07 Electrocardiograms Complete Invalid Hospita recorded Interpreta l 019 tion Code Distric 05:38-0 t #1 of [address] [facility] ([id number]) Urine Volume Urine Volume Sufficient (10mL) Invalid Hospita Interpreta l 019 tion Code Distric 05:38-0 t #1 of 400 [facility] ([id number]) Urine Saved if Culture Needed (48hrs from Abnormal Hosp whit time of collection) l 019 Distric 05:38-0 t #1 of 400 [facility] ([id number]) laboratory on 2019-07-07 Albumin BCG dye 4.4 Invalid 3.6-5.1 Hospita [Mass/Vol] Interpreta g/dL l 019 tion Code Distric 05:38-0 t #1 of 400 [facility] ([id number]) ALP [Catalytic 112 U/L Invalid 35-130 U/L Hospita activity/Vol] Interpreta l 019 tion Code Distric 05:38-0 t #1 of [address] [facility] ([id number]) ALT [Catalytic 16 U/L Invalid 6-45 U/L Hospita activity/Vol] Interpreta l 019 tion Code Distric 05:38-0 t [address] [place] [address] ([id number]) Anion gap 17 mmol/L High 6-14 Hospita 15-2 [Moles/Vol] l 019 Distric 05:38-0 t [address] [place] [address] ([id number]) AST [Catalytic 17 U/L Invalid 2-40 U/L Hospita 15-2 activity/Vol] Interpreta l 019 tion Code Distric 05:38-0 t [address] [place] [address] ([id number]) Bacteria LM Ql Negative Invalid Hospita 15-2 (Urine sed) Interpreta l 019 tion Code Distric 05:38-0 t [address] [place] [address] ([id number]) Basophils (Bld) 0.0 10*3/uL Invalid 0.0-0.2 Hospita 15 -2 [#/Vol] Interpreta K/uL l 019 tion Code Distric 05:38-0 t [address] [place] [address] ([id number]) Basophils/100 WBC 0.40 % Invalid 0.00-2.50 Hospita 15 -2 (Bld) Interpreta % l 019 tion Code Distric 05:38-0 t [address] [place] [address] ([id number]) Bilirubin [Mass/Vol] 0.3 mg/dL Invalid 0.2-1.2 Hospita - Interpreta mg/dL l 019 tion Code Distric 05:38-0 t [address] [place] [address] ([id number]) Bilirubin Confirm Ql N/A Abnormal Negative Hospita 15-2 (U) l 019 Distric 05:38-0 t [address] [place] [address] ([id number]) Bilirubin Ql (U) Negative Invalid Negative Hospita 15- 2 Interpreta l 019 tion Code Distric 05:38-0 t [address] [place] [address] ([id number]) Calcium [Mass/Vol] 9.7 mg/dL Invalid 8.3-10.4 Hospita 10-1 5-2 Interpreta mg/dL l 019 tion Code Distric 05:38-0 t [address] [place] [address] ([id number]) Chloride [Moles/Vol] 105 mmol/L Invalid 95-114 Hospita 1 0-15-2 Interpreta mmol/L l 019 tion Code Distric 05:38-0 t [address] [place] [address] ([id number]) CK [Catalytic 78 U/L Invalid 26-174 U/L Hospita 07-07-2 activity/Vol] Interpreta l 019 tion Code Distric 05:38-0 t [address] [place] [address] ([id number]) CK.MB [Mass/Vol] 1.4 ng/mL Invalid 0.0-9.2 Hospita 15- 2 Interpreta ng/ml l 019 tion Code Distric 05:38-0 t [address] [place] [address] ([id number]) Clarity (U) Slightly Cloudy Abnormal Clear Hospita 07-07 l 019 Distric 05:38-0 t [address] [place] [address] ([id number]) Color (U) Yellow Invalid Colorless- Hospita Interpreta Lt. Yellow l 019 tion Code Distric 05:38-0 t [address] [place] [address] ([id number]) Creatinine 1.22 mg/dL Invalid 0.50-1.50 Hospita 15-2 [Mass/Vol] Interpreta mg/dL l 019 tion Code Distric 05:38-0 t [address] [place] [address] ([id number]) Eosinophils (Bld) 0.1 10*3/uL Invalid 0.0-0.7 Hospita 15-2 [#/Vol] Interpreta K/uL l 019 tion Code Distric 05:38-0 t [address] [place] [address] ([id number]) Eosinophils/100 WBC 2.1 % Invalid 0.0-7.0 % Hospita 15-2 (Bld) Interpreta l 019 tion Code Distric 05:38-0 t [address] [place] [address] ([id number]) Epithelial 0-5/HPF Abnormal Hospita 15-2 cells.squamous l 019 LM.HPF (Urine sed) Distric 05:38-0 [#/Area] t [address] [place] [address] ([id number]) Erythrocyte 14.3 % Invalid 11.6-14.8 Hospita 15-2 distribution width Interpreta % l 019 (RBC) [Ratio] tion Code Distric 05:38-0 t [address] [place] [address] ([id number]) GFR/1.73 sq 61 mL/min/{1.73_m2} Invalid >59 Hospita 1 0-15-2 M.predicted MDRD Interpreta mL/min/1.7 l 019 (S/P/Bld) [Vol tion Code 3m2 Distric 05:38-0 rate/Area] t [address] [place] [address] ([id number]) Globulin (S) 3.3 g/dL Invalid 2.3-3.5 Hospita 10-15-2 [Mass/Vol] Interpreta g/dL l 019 tion Code Distric 05:38-0 t [address] [place] [address] ([id number]) Glucose [Mass/Vol] 148 mg/dL High 70-110 Hospita 10-1 5-2 mg/dL l 019 Distric 05:38-0 t [address] [place] [address] () Glucose Test strip Negative Invalid Negative Hospita 10-1 5-2 (U) [Mass/Vol] Interpreta l 019 tion Code Distric 05:38-0 t [address] [place] [address] () HCO3 (P) [Moles/Vol] 23 Invalid 22-33 Hospita 10 -15-2 Interpreta mEq/L l 019 tion Code Distric 05:38-0 t [address] [place] [address] ([id number]) Hematocrit (Bld) 40.2 % Low 42.0-52.0 Hospita 10-15- 2 [Volume fraction] % l 019 Distric 05:38-0 t [address] [place] [address] ([id number]) Hemoglobin (Bld) 13.4 g/dL Low 14.0-17.0 Hospita 10-15- 2 [Mass/Vol] g/dL l 019 Distric 05:38-0 t [address] [place] [address] ([id number]) Hemoglobin Ql (U) Negative Invalid Negative Hospita 10-15 -2 Interpreta l 019 tion Code Distric 05:38-0 t [address] [place] [address] ([id number]) Ketones (U) Negative Invalid Negative Hospita 10-15-2 [Mass/Vol] Interpreta l 019 tion Code Distric 05:38-0 t [address] [place] [address] ([id number]) Leukocyte esterase Negative Invalid Negative Hospita 10-1 5-2 Test strip Ql (U) Interpreta l 019 tion Code Distric 05:38-0 [address] [place] [address] ([id number]) Lymphocytes (Bld) 1.69 10*3/uL Invalid 0.60-3.40 Hospita -2 [#/Vol] Interpreta K/uL l 019 tion Code Distric 05:38-0 [address] [place] [address] () Lymphocytes/100 WBC 31.6 % Invalid 10.0-50.0 Hospita 15-2 (Bld) Interpreta % l 019 tion Code Distric 05:38-0 [address] [place] [address] () MCH (RBC) [Entitic 29.1 pg Invalid 27.0-31.2 Hospita - 5-2 mass] Interpreta pg l 019 tion Code Distric 05:38-0 [address] [place] [address] () MCHC (RBC) 33.3 g/dL Invalid 32.0-36.0 Hospita 07-07-2 [Mass/Vol] Interpreta g/dL l 019 tion Code Distric 05:38-0 t [address] [place] [address] () MCV (RBC) [Entitic 87.4 fL Invalid 80.0-97.0 Hospita - 5-2 vol] Interpreta fL l 019 tion Code Distric 05:38-0 t [address] [place] [address] () Monocytes (Bld) 0.4 10*3/uL Invalid 0.0-0.9 Hospita 07-07 -2 [#/Vol] Interpreta K/uL l 019 tion Code Distric 05:38-0 t [address] [place] [address] () Monocytes/100 WBC 7.1 % Invalid 0.0-12.0 % Hospita 06-23 5-2 (Bld) Interpreta l 019 tion Code Distric 05:38-0 t [address] [place] [address] ([id number]) Mucus Ql (Urine sed) 1+ Abnormal Hospita 07-07 -2 l 019 Distric 05:38-0 t [address] [place] [address] () Myoglobin [Mass/Vol] 114.8 ng/mL Invalid 1.6-154.9 Hospita 15-2 Interpreta ng/ml l 019 tion Code Distric 05:38-0 t [address] [place] [address] ([id number]) Neutrophils (Bld) 3.15 10*3/uL Invalid 2.00-6.90 Hospita -2 [#/Vol] Interpreta K/uL l 019 tion Code Distric 05:38-0 t [address] [place] [address] () Neutrophils/100 WBC 58.8 % Invalid 37.0-80.0 Hospita 15-2 (Bld) Interpreta % l 019 tion Code Distric 05:38-0 [address] [place] [address] ([id number]) Nitrite Ql (U) Negative Invalid Negative Hospita Interpreta l 019 tion Code Distric 05:38-0 t [address] [place] [address] () Osmolality Calc 294 Invalid 280-295 Hospita [Osmolality] Interpreta l 019 tion Code Distric 05:38-0 t [address] [place] [address] () pH (U) 5.5 [pH] Invalid 5-8.5 Hospita Interpreta l 019 tion Code Distric 05:38-0 [address] [place] [address] ([id number]) Platelet mean volume 9.3 fL Invalid 7.4-10.0 Hospita - (Bld) [Entitic vol] Interpreta fL l 019 tion Code Distric 05:38-0 t [address] [place] [address] () Platelets (Bld) 279 10*3/uL Invalid 150-400 Hospita 07-072 [#/Vol] Interpreta K/uL l 019 tion Code Distric 05:38-0 [address] [place] [address] ([id number]) Potassium 3.6 mmol/L Invalid 3.5-5.3 Hospita 07-07-2 [Moles/Vol] Interpreta mmol/L l 019 tion Code Distric 05:38-0 [address] [place] [address] ([id number]) Protein (U) Trace Abnormal Negative Hospita 07-07- [Mass/Vol] l 019 Distric 05:38-0 t [address] [place] [address] () Protein [Mass/Vol] 7.7 g/dL Invalid 6.0-8.3 Hospita 10- 5-2 Interpreta g/dL l 019 tion Code Distric 05:38-0 [address] [place] [address] () RBC (Bld) [#/Vol] 4.60 10*6/uL Invalid 4.20-5.40 Hospita Interpreta M/uL l 019 tion Code Distric 05:38-0 t [address] [place] [address] () RBC LM.HPF (Urine Rare/HPF Abnormal Hospita sed) [#/Area] l 019 Distric 05:38-0 t [address] [place] [address] () Sodium [Moles/Vol] 141 mmol/L Invalid 134-148 Hospita Interpreta mmol/L l 019 tion Code Distric 05:38-0 t [address] [place] [address] () Specific gravity (U) 1.020 Invalid 1.000-1.03 Hospita [Rel density] Interpreta 0 l 019 tion Code Distric 05:38-0 [address] [place] [address] () Troponin I.cardiac ng/mL Invalid 0.0-0.4 Hospita - 5-2 [Mass/Vol] Interpreta ng/mL l 019 tion Code Distric 05:38-0 t [address] [place] [address] () Urea nitrogen 14 mg/dL Invalid 5-25 mg/dL Hospita [Mass/Vol] Interpreta l 019 tion Code Distric 05:38-0 t [address] [place] [address] () Urobilinogen Qn (U) 0.2 Invalid 0.2-1.0 Hospita Interpreta l 019 tion Code Distric 05:38-0 [address] [place] [address] () WBC (Bld) [#/Vol] 5.35 10*3/uL Invalid 5.00-10.00 Hospita 1 - Interpreta K/uL l 019 tion Code Distric 05:38-0 t [address] [place] [address] ([id number]) WBC LM.HPF (Urine Nothing Seen on Microscopic Invalid Hospi ta 07-07- sed) [#/Area] Interpreta l 019 tion Code Distric 05:38-0 t #1 of [address] [facility] ([id number]) Yeast.budding Ql No Yeast present Invalid Hospita 10 5-2 (Urine sed) Interpreta l 019 tion Code Distric 05:38-0 t #1 of [address] [facility] ([id number]) mrsa isol org specific cx ql (unsp spec) on 2018-08-22 MRSA isol Org MRSA not isolated [facility] specific cx Ql (Unsp on Via spec) [facility] ([id number]) not yet categorized on 2018-08-14 Electrocardiograms Complete Invalid Hospita recorded Interpreta l 018 tion Code Distric : t #1 of [address] [facility] () Urine Volume Urine Volume Sufficient (10mL) Invalid Hospita Interpreta l 018 tion Code Distric : t [address] [place] [address] () Urine Saved if Culture Needed (48hrs from Abnormal Hosp whit time of collection) l 018 Distric : t [address] [place] [address] () laboratory on 2018-08-14 Albumin BCG dye 4.4 Invalid 3.6-5.1 Hospita [Mass/Vol] Interpreta g/dL l 018 tion Code Distric : t [address] [place] [address] ([id number]) ALP [Catalytic 139 U/L High 35-130 U/L Hospita activity/Vol] l 018 Distric : t [address] [place] [address] ([id number]) ALT [Catalytic 13 U/L Invalid 6-45 U/L Hospita activity/Vol] Interpreta l 018 tion Code Distric : t [address] [place] [address] ([id number]) Anion gap 16 mmol/L High 6-14 Hospita [Moles/Vol] l 018 Distric 01:-0 t [address] [place] [address] ([id number]) AST [Catalytic 16 U/L Invalid 2-40 U/L Hospita activity/Vol] Interpreta l 018 tion Code Distric : t [address] [place] [address] ([id number]) Bacteria LM Ql Trace Abnormal Hospita (Urine sed) l 018 Distric : t #1 of [address] [facility] ([id number]) Basophils (Bld) 0.0 10*3/uL Invalid 0.0-0.2 Hospita 08-14 [#/Vol] Interpreta K/uL l 018 tion Code Distric : t [address] [place] [address] ([id number]) Basophils/100 WBC 0.50 % Invalid 0.00-2.50 Hospita 08-14 (Bld) Interpreta % l 018 tion Code Distric t [address] [place] [address] ([id number]) Bilirubin [Mass/Vol] 0.5 mg/dL Invalid 0.2-1.2 Hospita Interpreta mg/dL l 018 tion Code Distric t [address] [place] [address] ([id number]) Bilirubin Confirm Ql N/A Abnormal Negative Hospita (U) l 018 Distric [address] [place] [address] ([id number]) Bilirubin Ql (U) Negative Invalid Negative Hospita Interpreta l 018 tion Code Distric t [address] [place] [address] () Calcium [Mass/Vol] 9.6 mg/dL Invalid 8.3-10.4 Hospita - 2-2 Interpreta mg/dL l 018 tion Code Distric t [address] [place] [address] () Chloride [Moles/Vol] 106 mmol/L Invalid 95-114 Hospita 1 Interpreta mmol/L l 018 tion Code Distric t [address] [place] [address] ([id number]) CK [Catalytic 66 U/L Invalid 26-174 U/L Hospita activity/Vol] Interpreta l 018 tion Code Distric t [address] [place] [address] () CK.MB [Mass/Vol] 1.2 ng/mL Invalid 0.0-9.2 Hospita Interpreta ng/ml l 018 tion Code Distric : t [address] [place] [address] ([id number]) Clarity (U) Slightly Cloudy Abnormal Clear Hospita 08-14 l 018 Distric : t #1 of [address] [facility] () Color (U) Yellow Invalid Colorless- Hospita Interpreta Lt. Yellow l 018 tion Code Distric : t #1 of [address] [facility] () Creatinine 1.58 mg/dL High 0.50-1.50 Hospita [Mass/Vol] mg/dL l 018 Distric :0 t #1 of [address] [facility] () Eosinophils (Bld) 0.2 10*3/uL Invalid 0.0-0.7 Hospita [#/Vol] Interpreta K/uL l 018 tion Code Distric : t #1 of [address] [facility] () Eosinophils/100 WBC 3.1 % Invalid 0.0-7.0 % Hospita (Bld) Interpreta l 018 tion Code Distric : t #1 of [address] [facility] () Epithelial 0-5/HPF Abnormal Hospita cells.squamous l 018 LM.HPF (Urine sed) Distric :0 [#/Area] t [address] [place] [address] () Erythrocyte 13.7 % Invalid 11.6-14.8 [facility] % l 018 (RBC) [Ratio] tion Code Distric : t #1 of [address] [facility] () GFR/1.73 sq 45 mL/min/{1.73_m2} Low >59 Hospita 1 2 M.predicted MDRD mL/min/1.7 l 018 (S/P/Bld) [Vol 3m2 Distric 01:-0 rate/Area] t [address] [place] [address] () Globulin (S) 3.3 g/dL Invalid 2.3-3.5 Hospita [Mass/Vol] Interpreta g/dL l 018 tion Code Distric 01:- t [address] [place] [address] () Glucose [Mass/Vol] 97 mg/dL Invalid 70-110 Hospita 11-2 2-2 Interpreta mg/dL l 018 tion Code Distric : t #1 of [address] [facility] () Glucose Test strip Negative Invalid Negative Hospita 11-2 2-2 (U) [Mass/Vol] Interpreta l 018 tion Code Distric : t #1 of [address] [facility] () HCO3 (P) [Moles/Vol] 22 Invalid 22-33 Hospita Interpreta mEq/L l 018 tion Code Distric : t #1 of [address] [facility] () Hematocrit (Bld) 35.3 % Low 42.0-52.0 Hospita [Volume fraction] % l 018 Distric : t [address] [place] [address] () Hemoglobin (Bld) 12.0 g/dL Low 14.0-17.0 Hospita 08-14- [Mass/Vol] g/dL l 018 Distric : t #1 of [address] [facility] () Hemoglobin Ql (U) Negative Invalid Negative Hospita 08-14 Interpreta l 018 tion Code Distric : t [address] [place] [address] () Ketones (U) Trace Abnormal Negative Hospita [Mass/Vol] l 018 Distric : t [address] [place] [address] () Leukocyte esterase Negative Invalid Negative Hospita - 2-2 Test strip Ql (U) Interpreta l 018 tion Code Distric : t [address] [place] [address] () Lymphocytes (Bld) 1.50 10*3/uL Invalid 0.60-3.40 Hospita [#/Vol] Interpreta K/uL l 018 tion Code Distric :- t [address] [place] [address] () Lymphocytes/100 WBC 24.4 % Invalid 10.0-50.0 Hospita - (Bld) Interpreta % l 018 tion Code Distric :- t [address] [place] [address] () MCH (RBC) [Entitic 31.1 pg Invalid 27.0-31.2 Hospita 11-2 2-2 mass] Interpreta pg l 018 tion Code Distric :- t #1 of [address] [facility] ([id number]) MCHC (RBC) 34.0 g/dL Invalid 32.0-36.0 Hospita -22-2 [Mass/Vol] Interpreta g/dL l 018 tion Code Distric : t #1 of [address] [facility] () MCV (RBC) [Entitic 91.5 fL Invalid 80.0-97.0 Hospita 11-2 2-2 vol] Interpreta fL l 018 tion Code Distric : t #1 of [address] [facility] () Monocytes (Bld) 0.8 10*3/uL Invalid 0.0-0.9 Hospita 08-14 - [#/Vol] Interpreta K/uL l 018 tion Code Distric : t #1 of [address] [facility] () Monocytes/100 WBC 12.5 % High 0.0-12.0 % Hospita 07-25 2-2 (Bld) l 018 Distric :- t #1 of [address] [facility] ([id number]) Mucus Ql (Urine sed) 3+ [facility]normal [facility]ric :-0 t #1 of [address] [facility] () Myoglobin [Mass/Vol] <1.0 Result Verified by Repeat Analysis Low 1.6-154.9 [facility] 08-14-2 ng/ml l 018 Distric :- t #1 of [address] [facility] ([id number]) Neutrophils (Bld) 3.66 10*3/uL Invalid 2.00-6.90 Hospita - [#/Vol] Interpreta K/uL l 018 tion Code Distric :-0 t #1 of [address] [facility] ([id number]) Neutrophils/100 WBC 59.5 % Invalid 37.0-80.0 Hospita -2 (Bld) Interpreta % l 018 tion Code Distric : t #1 of [address] [facility] () Nitrite Ql (U) Negative Invalid Negative Hospita 11-22-2 Interpreta l 018 tion Code Distric t #1 of [address] [facility] () Osmolality Calc 290 Invalid 280-295 Hospita [Osmolality] Interpreta l 018 tion Code Distric : t #1 of [address] [facility] () pH (U) 5.5 [pH] Invalid 5-8.5 Hospita Interpreta l 018 tion Code Distric : t #1 of [address] [facility] () Platelet mean volume 9.9 fL Invalid 7.4-10.0 Hospita (Bld) [Entitic vol] Interpreta fL l 018 tion Code Distric t #1 of [address] [facility] () Platelets (Bld) 263 10*3/uL Invalid 150-400 Hospita 08-14 [#/Vol] Interpreta K/uL l 018 tion Code Distric t #1 of [address] [facility] () Potassium 4.6 mmol/L Invalid 3.5-5.3 [facility] [Moles/Vol] Interpreta mmol/L l 018 tion Code Distric t #1 of [address] [facility] () Protein (U) Negative Invalid Negative [facility] [Mass/Vol] Interpreta l 018 tion Code Distric t #1 of [address] [facility] () Protein [Mass/Vol] 7.7 g/dL Invalid 6.0-8.3 Hospita 07-25 2-2 Interpreta g/dL l 018 tion Code Distric t #1 of [address] [facility] () RBC (Bld) [#/Vol] 3.86 10*6/uL Low 4.20-5.40 [facility] 018 Distric : t #1 of [address] [facility] () RBC LM.HPF (Urine Rare/HPF Abnormal Hospita sed) [#/Area] l 018 Distric : t #1 of [address] [facility] () Sodium [Moles/Vol] 139 mmol/L Invalid 134-148 Hospita Interpreta mmol/L l 018 tion Code Distric t [address] [place] [address] () Specific gravity (U) >=1.030 Abnormal 1.000-1.03 Hospita [Rel density] 0 l 018 Distric : t [address] [place] [address] () Troponin I.cardiac ng/mL Invalid 0.0-0.4 Hospita 07-25 2-2 [Mass/Vol] Interpreta ng/mL l 018 tion Code Distric t [address] [place] [address] () TSH Qn 3.54 Invalid 0.32-5.00 Hospita Interpreta mIU/mL l 018 tion Code Distric t [address] [place] [address] () Urea nitrogen 22 mg/dL Invalid 5-25 mg/dL Hospita [Mass/Vol] Interpreta l 018 tion Code Distric t [address] [place] [address] () Urobilinogen Qn (U) 1.0 Invalid 0.2-1.0 Hospita Interpreta l 018 tion Code Distric t [address] [place] [address] () WBC (Bld) [#/Vol] 6.15 10*3/uL Invalid 5.00-10.00 Hospita Interpreta K/uL l 018 tion Code Distric t [address] [place] [address] () WBC LM.HPF (Urine Rare/HPF Abnormal Hospita sed) [#/Area] l 018 Distric [address] [place] [address] () Yeast.budding Ql No Yeast present Invalid Hospita 07-25 2-2 (Urine sed) Interpreta l 018 tion Code Distric t [address] [place] [address] () laboratory on 2017-08-12 lamoTRIgine 1.3 Low 2.0-20.0 Not [Mass/Vol] ug/mL [facility] 017 le 12:07-0 ([id number]) 500 not yet categorized on 2017-08-08 LAMOTRIGINE, SERUM 1.3 Low 2.0-20.0 Not - 6-2 UG/ML [facility] 017 le 11:05-0 (12937) 500 laboratory on 2017-08-08 Albumin BCG dye 4.5 Invalid 3.6-5.1 Not [Mass/Vol] Interpreta g/dL [facility] 017 tion Code le 11:05-0 (95715) 500 ALP [Catalytic 143 U/L High 35-130 U/L Not activity/Vol] [facility] 017 le 11:05-0 (22619) 500 ALT [Catalytic 13 U/L Invalid 6-45 U/L Not activity/Vol] Interpreta [facility] 017 tion Code le 11:05-0 (91563) 500 Anion gap 15 mmol/L High 6-14 Not [Moles/Vol] [facility] 017 le 11:05-0 (09939) 500 AST [Catalytic 18 U/L Invalid 2-40 U/L Not activity/Vol] Interpreta [facility] 017 tion Code le 11:05-0 ([id number]) 500 Basophils (Bld) 0.0 10*3/uL Invalid 0.0-0.2 Not 08-08 [#/Vol] Interpreta K/uL [facility] 017 tion Code le 10:05-0 (65407) 500 Basophils/100 WBC 0.60 % Invalid 0.00-2.50 Not 08-08 (Bld) Interpreta % [facility] 017 tion Code le 10:05-0 ([id number]) 500 Bilirubin [Mass/Vol] 0.4 mg/dL Invalid 0.2-1.2 Not Interpreta mg/dL [facility] 017 tion Code le 11:05-0 (61244) 500 Calcium [Mass/Vol] 9.5 mg/dL Invalid 8.3-10.4 Not 07-24 6-2 Interpreta mg/dL [facility] 017 tion Code le 11:05-0 (03958) 500 Chloride [Moles/Vol] 107 mmol/L Invalid 95-114 Not Interpreta mmol/L [facility] 017 tion Code le 11:05-0 (47026) 500 Creatinine 1.26 mg/dL Invalid 0.50-1.50 Not [Mass/Vol] Interpreta mg/dL [facility] 017 tion Code le 11:05-0 (29470) 500 Eosinophils (Bld) 0.2 10*3/uL Invalid 0.0-0.7 Not [#/Vol] Interpreta K/uL [facility] 017 tion Code le 10:05-0 (37075) 500 Eosinophils/100 WBC 3.9 % Invalid 0.0-7.0 % Not (Bld) Interpreta [facility] 017 tion Code le 10:05-0 (47193) 500 Erythrocyte 13.5 % Invalid 11.6-14.8 Not distribution width Interpreta % [facility] 017 (RBC) [Ratio] tion Code le 10:05-0 (22685) 500 GFR/1.73 sq 59 mL/min/{1.73_m2} Low >59 Not 1 2 M.predicted MDRD mL/min/1.7 [facility] 017 (S/P/Bld) [Vol 3m2 le 11:05-0 rate/Area] ([id number]) 500 Globulin (S) 3.1 g/dL Invalid 2.3-3.5 Not [Mass/Vol] Interpreta g/dL [facility] 017 tion Code le 11:05-0 (19641) 500 Glucose [Mass/Vol] 104 mg/dL Invalid 70-110 Not 07-24 6-2 Interpreta mg/dL [facility] 017 tion Code le 11:05-0 (62094) 500 HCO3 (P) [Moles/Vol] 24 Invalid 22-33 Not Interpreta mEq/L [facility] 017 tion Code le 11:05-0 (26301) 500 Hematocrit (Bld) 37.1 % Low 42.0-52.0 Not [Volume fraction] % [facility] 017 le 10:05-0 (24989) 500 Hemoglobin (Bld) 12.5 g/dL Low 14.0-17.0 Not 08-08- 2 [Mass/Vol] g/dL [facility] 017 le 10:05-0 (05660) 500 Lymphocytes (Bld) 1.54 10*3/uL Invalid 0.60-3.40 Not [#/Vol] Interpreta K/uL [facility] 017 tion Code le 10:05-0 (50459) 500 Lymphocytes/100 WBC 30.1 % Invalid 10.0-50.0 Not (Bld) Interpreta % [facility] 017 tion Code le 10:05-0 (81934) 500 MCH (RBC) [Entitic 30.7 pg Invalid 27.0-31.2 Not 07-24 6- mass] Interpreta pg [facility] 017 tion Code le 10:05-0 (10573) 500 MCHC (RBC) 33.7 g/dL Invalid 32.0-36.0 Not [Mass/Vol] Interpreta g/dL [facility] 017 tion Code le 10:05-0 (78768) 500 MCV (RBC) [Entitic 91.2 fL Invalid 80.0-97.0 Not 07-24-2 vol] Interpreta fL [facility] 017 tion Code le 10:05-0 (13295) 500 Monocytes (Bld) 0.6 10*3/uL Invalid 0.0-0.9 Not 08-08 [#/Vol] Interpreta K/uL [facility] 017 tion Code le 10:05-0 (41130) 500 Monocytes/100 WBC 11.5 % Invalid 0.0-12.0 % Not 07-24 (Bld) Interpreta [facility] 017 tion Code le 10:05-0 (49723) 500 Neutrophils (Bld) 2.75 10*3/uL Invalid 2.00-6.90 Not [#/Vol] Interpreta K/uL [facility] 017 tion Code le 10:05-0 (68940) 500 Neutrophils/100 WBC 53.9 % Invalid 37.0-80.0 Not (Bld) Interpreta % [facility] 017 tion Code le 10:05-0 (28283) 500 Osmolality Calc 296 High 280-295 Not 08-08- [Osmolality] [facility] 017 le 11:05-0 (45636) 500 Platelet mean volume 9.3 fL Invalid 7.4-10.0 Not (Bld) [Entitic vol] Interpreta fL [facility] 017 tion Code le 10:05-0 (31996) 500 Platelets (Bld) 256 10*3/uL Invalid 150-400 Not 08-08 [#/Vol] Interpreta K/uL [facility] 017 tion Code le 10:05-0 (18865) 500 Potassium 4.1 mmol/L Invalid 3.5-5.3 Not [Moles/Vol] Interpreta mmol/L [facility] 017 tion Code le 11:05-0 (85032) 500 Protein [Mass/Vol] 7.6 g/dL Invalid 6.0-8.3 Not 07-24 Interpreta g/dL [facility] 017 tion Code le 11:05-0 (98654) 500 RBC (Bld) [#/Vol] 4.07 10*6/uL Low 4.20-5.40 Not M/uL [facility] 017 le 10:05-0 (35815) 500 Sodium [Moles/Vol] 142 mmol/L Invalid 134-148 Not Interpreta mmol/L [facility] 017 tion Code le 11:05-0 (41588) 500 Urea nitrogen 19 mg/dL Invalid 5-25 mg/dL Not [Mass/Vol] Interpreta [facility] 017 tion Code le 11:05-0 (52064) 500 WBC (Bld) [#/Vol] 5.11 10*3/uL Invalid 5.00-10.00 Not Interpreta K/uL [facility] 017 tion Code le 10:05-0 (02566) 500 laboratory on 2016-10-20 Albumin BCG dye 4.3 Invalid 3.6-5.1 Not [Mass/Vol] Interpreta g/dL [facility] 017 tion Code le :-0 (84662) 500 ALP [Catalytic 120 U/L Invalid 35-130 U/L Not activity/Vol] Interpreta [facility] 017 tion Code le :0 (66295) 500 ALT [Catalytic 18 U/L Invalid 6-45 U/L Not activity/Vol] Interpreta [facility] 017 tion Code le 01:31-0 (99823) 500 Anion gap 17 mmol/L High 6-14 Not [Moles/Vol] [facility] 017 le 01:31-0 (67951) 500 AST [Catalytic 19 U/L Invalid 2-40 U/L Not activity/Vol] Interpreta [facility] 017 tion Code le 01:31-0 (24436) 500 Basophils (Bld) 0.0 10*3/uL Invalid 0.0-0.2 Not 10-20 [#/Vol] Interpreta K/uL [facility] 017 tion Code le 01:31-0 (85599) 500 Basophils/100 WBC 0.60 % Invalid 0.00-2.50 Not 10-20 (Bld) Interpreta % [facility] 017 tion Code le 01:31-0 (84631) 500 Bilirubin [Mass/Vol] 0.3 mg/dL Invalid 0.2-1.2 Not Interpreta mg/dL [facility] 017 tion Code le 01:31-0 (96858) 500 Calcium [Mass/Vol] 8.9 mg/dL Invalid 8.3-10.4 Not 09-24 8-2 Interpreta mg/dL [facility] 017 tion Code le 01:31-0 (04964) 500 Chloride [Moles/Vol] 106 mmol/L Invalid 95-114 Not 0 Interpreta mmol/L [facility] 017 tion Code le 01:31-0 (85216) 500 Creatinine 1.52 mg/dL High 0.50-1.50 Not [Mass/Vol] mg/dL [facility] 017 le 01:31-0 (77342) 500 Eosinophils (Bld) 0.2 10*3/uL Invalid 0.0-0.7 Not [#/Vol] Interpreta K/uL [facility] 017 tion Code le 01:31-0 (92825) 500 Eosinophils/100 WBC 3.2 % Invalid 0.0-7.0 % Not (Bld) Interpreta [facility] 017 tion Code le 01:31-0 (74517) 500 Erythrocyte 13.7 % Invalid 11.6-14.8 Not distribution width Interpreta % [facility] 017 (RBC) [Ratio] tion Code le :31-0 (47564) 500 Ethanol [Mass/Vol] <10 Result Verified by Repeat Analysis Low 20-80 Not 10-20-2 mg/dL [facility] 017 le 01:31-0 (96890) 500 GFR/1.73 sq 48 mL/min/{1.73_m2} Low >59 Not 0 28-2 M.predicted MDRD mL/min/1.7 [facility] 0[facility] (S/P/Bld) [Vol 3m2 le :31-0 rate/Area] (51982) 500 Globulin (S) 3.5 g/dL Invalid 2.3-3.5 Not [Mass/Vol] Interpreta g/dL [facility] 017 tion Code le :31-0 (94077) 500 Glucose [Mass/Vol] 157 mg/dL High 70-110 Not - 8-2 mg/dL [facility] 017 le :31-0 (27267) 500 HCO3 (P) [Moles/Vol] 19 Low 22-33 Not -2 mEq/L [facility] 017 le 01:31-0 (24543) 500 Hematocrit (Bld) 39.0 % Low 42.0-52.0 Not 2 [Volume fraction] % [facility] 017 le 01:31-0 (05532) 500 Hemoglobin (Bld) 13.4 g/dL Low 14.0-17.0 Not 10-20- 2 [Mass/Vol] g/dL [facility] 017 le :31-0 (16762) 500 Lymphocytes (Bld) 3.27 10*3/uL Invalid 0.60-3.40 Not [#/Vol] Interpreta K/uL [facility] 017 tion Code le 01:31-0 (26976) 500 Lymphocytes/100 WBC 45.8 % Invalid 10.0-50.0 Not -2 (Bld) Interpreta % [facility] 017 tion Code le 01:31-0 (31304) 500 MCH (RBC) [Entitic 29.2 pg Invalid 27.0-31.2 Not -2 8-2 mass] Interpreta pg [facility] 017 tion Code le 01:31-0 (22028) 500 MCHC (RBC) 34.4 g/dL Invalid 32.0-36.0 Not [Mass/Vol] Interpreta g/dL [facility] 017 tion Code le 01:31-0 (56961) 500 MCV (RBC) [Entitic 85.0 fL Invalid 80.0-97.0 Not 09-24-2 vol] Interpreta fL Availab 017 tion Code le 01:31-0 ([id number]) 500 Monocytes (Bld) 0.7 10*3/uL Invalid 0.0-0.9 Not 10-20 [#/Vol] Interpreta K/uL Availab 017 tion Code le 01:31-0 (22755) 500 Monocytes/100 WBC 9.9 % Invalid 0.0-12.0 % Not 09-24 (Bld) Interpreta Availab 017 tion Code le 01:31-0 ([id number]) 500 Neutrophils (Bld) 2.89 10*3/uL Invalid 2.00-6.90 Not [#/Vol] Interpreta K/uL Availab 017 tion Code le 01:31-0 (24485) 500 Neutrophils/100 WBC 40.5 % Invalid 37.0-80.0 Not (Bld) Interpreta % Availab 017 tion Code le 01:31-0 (43321) 500 Osmolality Calc 291 Invalid 280-295 Not [Osmolality] Interpreta Availab 017 tion Code le 01:31-0 ([id number]) 500 Platelet mean volume 9.3 fL Invalid 7.4-10.0 Not (Bld) [Entitic vol] Interpreta fL Availab 017 tion Code le 01:31-0 (24267) 500 Platelets (Bld) 272 10*3/uL Invalid 150-400 Not 10-20 [#/Vol] Interpreta K/uL Availab 017 tion Code le 01:31-0 (75448) 500 Potassium 3.2 mmol/L Low 3.5-5.3 Not [Moles/Vol] mmol/L Availab 017 le 01:31-0 (29240) 500 Protein [Mass/Vol] 7.8 g/dL Invalid 6.0-8.3 Not 01-2 8-2 Interpreta g/dL Availab 017 tion Code le 01:31-0 (97840) 500 RBC (Bld) [#/Vol] 4.59 10*6/uL Invalid 4.20-5.40 Not Interpreta M/uL Availab 017 tion Code le 01:31-0 (48539) 500 Sodium [Moles/Vol] 139 mmol/L Invalid 134-148 Not Interpreta mmol/L Availab 017 tion Code le 01:31-0 (07983) 500 Urea nitrogen 15 mg/dL Invalid 5-25 mg/dL Not [Mass/Vol] Interpreta Availab 017 tion Code le 01:31-0 (83497) 500 WBC (Bld) [#/Vol] 7.14 10*3/uL Invalid 5.00-10.00 Not 0 Interpreta K/uL Availab 017 tion Code le 01:31-0 (43452) 500 Social History The data below is from unstructured sources History Response Recorde d Date/Time Hx Family Cancer Y FATHER 07/16/07 7:16pm Hx Family Lung Cancer Y UNCLE 07/16/07 7:16pm Vital Signs The data below is from unstructured sources Vital Response Date/Time Temperature (Fahrenheit) 98.9 degree s F (97.6 - 99.5) 06/05/2016 7:22pm Temperature (Calculated Celsius) 37. 80427 degrees C (36.4 - 37.5) 06/05/2016 7:22pm Pulse Rate (adult) 78 bpm (60 - 90) 06/05/2016 8:52pm Respiratory Rate 18 bpm (12 - 24) 06/05/2016 8:52pm O2 Sat by Pulse Oximetry 99 % (88 - 100) 06/05/2016 8:52pm Blood Pressure 134/82 mm Hg 06/05/2016 8:52pm Blood Pressure Mean 106 mm Hg 06/05/2016 7:22pm Pain Numeric Pain Scale 6 7:22pm Height (Feet) 6 feet 7:22pm Height (Inches) 3 inches 06/05/2016 7:22pm Height (Calculated Centimeters) 190. 922588 cm 06/05/2016 7:22pm Weight (Pounds) 322 pounds 06/05/2016 7:22pm Weight (Calculated Kilograms) 146.05 6745 kilograms 06/05/2016 7:22pm Capillary Refill Capillary Refill Less Than 3 Seconds 06/05/2016 7:22pm Height 6 ft 3 in Weight 322 lb Body Mass Index 40.2 kg/m^2 Vital Response Date/Time Temperature (Fahrenheit) 98.0 degree s F (97.6 - 99.5) Temperature (Calculated Celsius) 36. 16951 degrees C (36.4 - 37.5) Temperature Source Tympanic Pulse Rate (adult) 88 bpm (60 - 90) Respiratory Rate 18 bpm (12 - 24) O2 Sat by Pulse Oximetry 99 % (88 - 100) Blood Pressure 133/75 mm Hg Pain Pain Intensity 0 Height (Feet) 6 feet Height (Inches) 3.00 inches Height (Calculated Centimeters) 190. 864297 cm Weight (Pounds) 335 pounds Weight (Ounces) 8.0 oz Weight (Calculated Grams) 698706.242 gm Weight (Calculated Kilograms) 152.18 0242 kilograms Calculated BMI 41.87 Vital Response Date/Time Temperature (Fahrenheit) 95.9 degree s F (97.6 - 99.5) Temperature (Calculated Celsius) 35. 01623 degrees C (36.4 - 37.5) Temperature Source Tympanic Pulse Rate (adult) 76 bpm (60 - 90) Respiratory Rate 20 bpm (12 - 24) O2 Sat by Pulse Oximetry 96 % (88 - 100) Blood Pressure 128/70 mm Hg Pain Pain Intensity 0 Height (Feet) 6 feet Height (Inches) 3.00 inches Height (Calculated Centimeters) 190. 528539 cm Weight (Pounds) 335 pounds Weight (Ounces) 8.0 oz Weight (Calculated Grams) 583200.242 gm Weight (Calculated Kilograms) 152.18 0242 kilograms Calculated BMI 41.87 Vital Response Date/Time Temperature (Fahrenheit) 97.4 degree s F (97.6 - 99.5) 11/15/2017 2:01pm Temperature (Calculated Celsius) 36. 44470 degrees C (36.4 - 37.5) 11/15/2017 2:01pm Temperature Source Temporal 11/15/2017 2:01pm Pulse Rate (adult) 75 bpm (60 - 90) 11/15/2017 3:33pm Respiratory Rate 18 bpm (12 - 24) 11/15/2017 3:33pm O2 Sat by Pulse Oximetry 98 % (88 - 100) 11/15/2017 3:33pm Blood Pressure 163/91 mm Hg 11/15/2017 3:33pm Blood Pressure Mean 115 mm Hg (65 - 110) 11/15/2017 3:33pm Pain Numeric Pain Scale 7 3:57pm Height (Feet) 6 feet 2:01pm Height (Inches) 3.00 inches 11/15/2017 2:01pm Height (Calculated Centimeters) 190. 422411 cm 11/15/2017 2:01pm Weight (Pounds) 330 pounds 11/15/2017 2:01pm Weight (Calculated Kilograms) 149.68 5484 kilograms 11/15/2017 2:01pm Weight Method Stated 2:01pm Capillary Refill Capillary Refill Less Than 3 Seconds 11/15/2017 2:01pm Height 6 ft 3 in 018 2:01pm Weight 330 lb 11/15/2017 2:01pm Body Mass Index 41.2 kg/m^2 11/15/2017 2:01pm Vital Response Date/Time Pulse Rate (adult) 64 bpm (60 - 90) 08/22/2018 10:45am Respiratory Rate 16 bpm (12 - 24) 08/22/2018 10:45am O2 Sat by Pulse Oximetry 97 % (88 - 100) 08/22/2018 10:45am Blood Pressure 143/81 mm Hg 08/22/2018 10:45am Blood Pressure Mean 101 mm Hg (65 - 110) 08/22/2018 10:45am Pain Numeric Pain Scale 0-No Pain 08/22/2018 10:45am Height (Feet) 6 feet 10:31am Height (Inches) 3.00 inches 08/22/2018 10:31am Height (Calculated Centimeters) 190. 519973 cm 08/22/2018 10:31am Weight (Pounds) 345 pounds 08/22/2018 10:31am Weight (Ounces) 3.0 oz 1 10/22/2017 10:31am Weight (Calculated Grams) 893262.42 gm 08/22/2018 10:31am Weight (Calculated Kilograms) 156.57 4418 kilograms 08/22/2018 10:31am Calculated BMI 43.2 07/26 10:31am Weight Measurement Method Standing Scale 08/22/2018 10:31am Vital Response Date/Time Temperature (Fahrenheit) 97.6 degree s F (97.6 - 99.5) 09/17/2018 1:45pm Temperature (Calculated Celsius) 37. 32735 degrees C (36.4 - 37.5) 09/17/2018 1:15pm Temperature Source Temporal 09/17/2018 1:45pm Pulse Rate (adult) 81 bpm (60 - 90) 09/17/2018 1:45pm Respiratory Rate 18 bpm (12 - 24) 09/17/2018 1:45pm O2 Sat by Pulse Oximetry 94 % (88 - 100) 09/17/2018 1:45pm Blood Pressure 136/79 mm Hg 09/17/2018 1:45pm Blood Pressure Mean 107 mm Hg (65 - 110) 09/17/2018 9:20am Pain Numeric Pain Scale 0-No Pain 09/17/2018 1:45pm Pain Intensity 0 2017 12:15pm Height (Feet) 6 feet 9:20am Height (Inches) 3.00 inches 09/17/2018 9:20am Height (Calculated Centimeters) 190. 956656 cm 09/17/2018 9:20am Weight (Pounds) 345 pounds 09/17/2018 9:20am Weight (Ounces) 3.0 oz 1 11/18/2017 9:20am Weight (Calculated Grams) 681604.42 gm 09/17/2018 9:20am Weight (Calculated Kilograms) 156.57 4418 kilograms 09/17/2018 9:20am Calculated BMI 43.2 08/24 9:20am Weight Measurement Method Standing Scale 08/22/2018 10:31am Vital Response Date/Time Temperature (Fahrenheit) 97.6 degree s F (97.6 - 99.5) 09/17/2018 1:45pm Temperature (Calculated Celsius) 37. 37131 degrees C (36.4 - 37.5) 09/17/2018 1:15pm Temperature Source Temporal 09/17/2018 1:45pm Pulse Rate (adult) 81 bpm (60 - 90) 09/17/2018 1:45pm Respiratory Rate 18 bpm (12 - 24) 09/17/2018 1:45pm O2 Sat by Pulse Oximetry 94 % (88 - 100) 09/17/2018 1:45pm Blood Pressure 136/79 mm Hg 09/17/2018 1:45pm Blood Pressure Mean 107 mm Hg (65 - 110) 09/17/2018 9:20am Pain Numeric Pain Scale 0-No Pain 09/17/2018 1:45pm Pain Intensity 0 2017 12:15pm Height (Feet) 6 feet 9:20am Height (Inches) 3.00 inches 09/17/2018 9:20am Height (Calculated Centimeters) 190. 916069 cm 09/17/2018 9:20am Weight (Pounds) 345 pounds 09/17/2018 9:20am Weight (Ounces) 3.0 oz 1 11/18/2017 9:20am Weight (Calculated Grams) 637222.42 gm 09/17/2018 9:20am Weight (Calculated Kilograms) 156.57 4418 kilograms 09/17/2018 9:20am Calculated BMI 43.2 08/24 9:20am Weight Measurement Method Standing Scale 08/22/2018 10:31am Functional Status The data below is from unstructured sourcesNo functional status results.No functional status results.No functional status results.No functional status results.No functional status results.No functional status results.No functional status results.No functional status results.No functional status results.No functional status information available.No functional status information available.No functional status information available.No functional status information available.No functional status information available.No f unctional status information available.No functional status information availabl e.No functional status information available. Mental Status No Information Advance Directives Directive Response Recor ded Date/Time Advance Directives No 7:22pm Health Care Power of Direct Support Staff Member No 06/05/16 7:22pm Organ Donor Yes 06/05/16 7:22pm Resuscitation Status Full Code 06/05/16 7:22pm Directive Response Recor ded Date/Time Advance Directives No 7:19am Health Care Power of Direct Support Staff Member No 12/06/14 7:19am Organ Donor Yes 12/06/14 7:19am Directive Response Recor ded Date/Time Advance Directives No 8:00pm Health Care Power of Direct Support Staff Member No 12/02/14 8:00pm Organ Donor Yes 12/02/14 8:00pm Directive Response Recor ded Date Advance Directives N 8:52am Health Care Power of Direct Support Staff Member N 11/19/12 8:52am Organ Donor Y 11/19/12 8 :52am Directive Response Recor ded Date/Time Advance Directives No 7:19am Health Care Power of Direct Support Staff Member No 12/06/14 7:19am Organ Donor Yes 12/06/14 7:19am Resuscitation Status Full Code 12/06/14 7:19am Directive Response Recor ded Date/Time Advance Directives No 7:22pm Health Care Power of Direct Support Staff Member No 06/05/16 7:22pm Organ Donor Yes 06/05/16 7:22pm Directive Response Recor ded Date/Time Advance Directives No 2:12pm Health Care Power of Direct Support Staff Member No 11/15/17 2:12pm Organ Donor Yes 11/15/17 2:12pm Resuscitation Status Full Code 11/15/17 2:12pm Directive Response Recor ded Date/Time Advance Directives No 10:35am Health Care Power of Direct Support Staff Member No 08/22/18 10:35am Organ Donor Yes 08/22/18 10:35am Resuscitation Status Full Code 08/22/18 10:35am Directive Response Recor ded Date/Time Advance Directives No 9:20am Health Care Power of Direct Support Staff Member No 09/17/18 9:20am Organ Donor Yes 09/17/18 9:20am Resuscitation Status Full Code 09/17/18 9:20am Discharge Instructions No hospital discharge instructions.No hospital discharge instructions.No hospital discharge instructions.No hospital discharge instructions.No hospital discharge instructions.No hospital discharge instruction information available.No hospital discharge instruction information available.No hospital discharge instruction information available.No hospital discharge instruction information available. Additional Source Comments This clinical document has been generated using [email or web address] software that has been certified by the Office of the National Coordinator for Health Information Technology (ONC 15.99.04.3023.Diam.31.00.0.196712) and the National Committee for Counseling Specialist (NCQA, as an eMeasure certified technology). FOR RECORDS PERTAINING TO PATIENTS WHO ARE OR HAVE BEEN ENROLLED IN A CHEMICAL D EPENDENCY/SUBSTANCE ABUSE PROGRAM, SOME INFORMATION MAY BE OMITTED. This clinica l summary was aggregated from multiple sources. Caution should be exercised in using it in the provision of clinical care. This summary normalizes information from multiple sources, and as a consequence, information in this document may ma terially change the coding, format and clinical context of patient data. In tremayne tion, data may be omitted in some cases. CLINICAL DECISIONS SHOULD BE BASED ON T HE PRIMARY CLINICAL RECORDS. [employer] provides no warranty or guara ntee of the accuracy or completeness of information in this document.The followi ng information is based on time limited clinical information
--- OUTSIDE RECORDS SUMMARY | 2020-04-23 16:15 | XMS REPORT | Continuity of Care Document ---
Author Organization Unknown Address Unknown Phone Unavailable Allergies Active Description Code Type Severity Reaction Onset Reported/Identified Relationship to Patient Clinical Status Yes levofloxacin [id number] Drug Allergy Unknown N/A 07/16/2007 Medications There is no data. Problems Date Dx Coded Attending Type Code Diagnosis Diagnosed By 06/02/2009 Ot 346.90 06/02/2009 Ot 780.39 06/02/2009 Ot 780.4 06/02/2009 Ot 780.79 06/02/2009 Ot V58.69 02/27/2010 Ot 530.81 02/27/2010 Ot 550.90 02/27/2010 Ot 569.49 02/27/2010 Ot 578.1 06/22/2011 Ot 272.4 HYPE RLIPIDEMIA NEC/NOS 06/22/2011 Ot 327.23 OBS TRUCTIVE SLEEP APNEA (ADULT) (PEDIATR 06/22/2011 Ot 401.9 HYPE RTENSION NOS 06/22/2011 Ot 414.01 COR ONARY ATHEROSCLEROSIS OF [place] CORON 06/22/2011 Ot 496 CHR AI RWAY OBSTRUCT NEC 06/22/2011 Ot 786.09 RES PIRATORY ABNORM NEC 06/22/[address] PAIN NOS 06/22/2011 Ot 794.30 ABN CARDIOVASC STUDY NOS 06/22/2011 Ot V58.66 MICHAEL G-TERM (CURRENT) USE OF ASPIRIN 06/22/2011 Ot V58.69 OT MED,LT,CURRENT USE 07/08/2011 Ot V01.89 OT ER COMMUNICABLE DISEASES 11/19/2012 Ot 272.4 HYPE RLIPIDEMIA NEC/NOS 11/19/2012 Ot 327.23 OBS TRUCTIVE SLEEP APNEA (ADULT) (PEDIATR 11/19/2012 Ot 401.9 HYPE RTENSION NOS 11/19/2012 Ot 414.01 COR ONARY ATHEROSCLEROSIS OF [place] CORON 11/19/2012 Ot 433.10 CAR OTID ARTERY OCCLUSION W O CEREBRAL IN 11/19/2012 Ot 496 CHR AI RWAY OBSTRUCT NEC 11/19/[address] PAIN NOS 11/19/2012 Ot 794.30 ABN CARDIOVASC STUDY NOS 11/19/2012 Ot V58.66 MICHAEL G-TERM (CURRENT) USE OF ASPIRIN 11/19/2012 Ot V58.69 OTH MED,LT,CURRENT USE 01/23/2013 ANNE-MARIE HEMPHILL, GREG Charles Ot 327.23 OBSTRUCTIVE SLEEP APNEA (ADULT) (PEDIATR 01/29/2013 ANNE-MARIE HEMPHILL, GREG Charles Ot 327.23 OBSTRUCTIVE [...] CARLY Kline Ot 496 08/12/2014 JULIET HEMPHILL, BASHAR J Ot 272. 4 08/12/2014 MISAEL CHUNG MD Ot 327. 23 08/12/2014 JULIET HEMPHILL, MISAEL Little Ot 401. 9 08/12/2014 JULIET HEMPHILL, MISAEL Little Ot 414. 00 08/12/2014 MISAEL CHUNG MD Ot 427. 81 08/12/2014 JOCELYN GARCIA APRN Ot 780.79 09/22/2014 [...] 424.0 09/22/2014 Ot 786.50 09/22/2014 SOFIYA HEMPHILL, [facility] Ot 496 09/22/2014 MISAEL CHUNG MD Ot 272. 4 09/22/2014 MISAEL CHUNG MD Ot 327. 23 09/22/2014 JULIET HEMPHILL, MISAEL Little Ot 401. 9 09/22/2014 JULIET HEMPHILL, MISAEL Little Ot 414. 00 09/22/2014 JULIET HEMPHILL, MISAEL Little Ot 427. 81 09/22/2014 JOCELYN GARCIA APRN Ot 780.79 12/03/2014 Ot 272.4 HYPE RLIPIDEMIA NEC/NOS 12/03/2014 Ot 327.23 OBS TRUCTIVE SLEEP APNEA (ADULT) (PEDIATR 12/03/2014 Ot 401.9 HYPE RTENSION NOS 12/03/2014 Ot 414.01 COR ONARY ATHEROSCLEROSIS OF [place] CORON 12/03/2014 Ot 496 CHR AI RWAY OBSTRUCT NEC 12/03/2014 Ot 786.09 RES PIRATORY ABNORM NEC 12/03/[address] PAIN NOS 12/06/2014 Ot 535.40 OTH SPECIFIED GASTRITIS,W/O MENTION OF H 12/06/2014 Ot 553.3 DIAP HRAGMATIC HERNIA 01/07/2015 Ot 272.4 01/07/2015 Ot 401.9 [...] 01/07/2015 Ot 786.50 01/07/2015 SOFIYA HEMPHILL, CARLY T Ot 496 01/07/2015 JULIET HEMPHILL, MISAEL Little Ot 272. 4 01/07/2015 JULIET HEMPHILL, MISAEL Little Ot 327. 23 01/07/2015 JULIET HEMPHILL, MISAEL Little Ot 401. 9 01/07/2015 JULIET HEMPHILL, MISAEL Little Ot 414. 00 01/07/2015 JULIET HEMPHILL, MISAEL Little Ot 427. 81 01/07/2015 JOCELYN GARCIA APRN Ot 780.79 01/07/2015 [...] 496 02/25/2015 JULIET HEMPHILL, MISAEL Little Ot 272. 4 02/25/2015 JULIET HEMPHILL, MISAEL Little Ot 327. 23 02/25/2015 MISAEL CHUNG MD Ot 401. 9 02/25/2015 JULIET HEMPHILL, MISAEL Little Ot 414. 00 02/25/2015 JULIET HEMPHILL, MISAEL Little Ot 427. 81 02/25/2015 JOCELYN GARCIA APRN Ot 780.79 02/25/2015 Ot V72.84 11/15/2015 ALF MATHUR DO Ot R19.7 DIARRHEA, UNSPECIFIED 05/21/2016 Ot 272.4 HYPE RLIPIDEMIA NEC/NOS 05/21/2016 Ot 397.0 TRIC USPID VALVE DISEASE 05/21/2016 Ot 401.9 HYPE RTENSION NOS 05/21/2016 Ot 424.0 MITR AL VALVE DISORDER 05/21/2016 Ot 786.09 RES PIRATORY ABNORM NEC 05/21/[address] PAIN NOS 05/21/2016 Ot 401.9 HYPE RTENSION NOS 05/21/2016 Ot 414.00 COR ON ATHEROSCLER NOS TYPE VESSEL, NATIV 05/21/2016 Ot 786.05 SHIVAM RTNESS OF BREATH 05/21/[address] PAIN NOS 05/21/2016 Ot 794.39 ABN CARDIOVASC STUDY NEC 05/21/2016 Ot V72.63 PRE -PROCEDURAL LABORATORY EXAMINATION 05/21/2016 Ot V72.83 EXA M PRE- OPERATIVE NEC 05/21/2016 Ot V01.89 OT ER COMMUNICABLE DISEASES 05/21/2016 Ot 272.4 HYPE RLIPIDEMIA NEC/NOS 05/21/2016 Ot 401.9 HYPE RTENSION NOS 05/21/2016 Ot 414.01 COR ONARY ATHEROSCLEROSIS OF [place] CORON 05/21/2016 Ot 401.9 HYPE RTENSION NOS 05/21/2016 Ot 414.00 COR ON ATHEROSCLER NOS TYPE VESSEL, NATIV 05/21/[address] PAIN NOS 05/21/2016 Ot 397.0 TRIC USPID VALVE DISEASE 05/21/2016 Ot 401.9 HYPE RTENSION NOS 05/21/2016 Ot 414.00 COR ON ATHEROSCLER NOS TYPE VESSEL, NATIV 05/21/2016 Ot 424.0 MITR AL VALVE DISORDER 05/21/[address] PAIN NOS 05/21/2016 SOFIYA HEMPHILL, CARLY Kline Ot 496 CHR AIRWAY OBSTRUCT NEC 05/21/2016 MISAEL CHUNG MD Ot 272. 4 HYPERLIPIDEMIA NEC/NOS 05/21/2016 MISAEL CHUNG MD Ot 327. 23 OBSTRUCTIVE SLEEP APNEA (ADULT) (PEDIATR 05/21/2016 MISAEL CHUNG MD Ot 401. 9 HYPERTENSION NOS 05/21/2016 MISAEL CHUNG MD Ot 414. 00 CORON ATHEROSCLER NOS TYPE VESSEL, NATIV 05/21/2016 MISAEL CHUNG MD Ot 427. 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 05/21/2016 JOCELYN GARCIA APRN Ot 780.79 OTH MALAISE FATIGUE 05/21/2016 Ot V72.84 EXA M PRE- OPERATIVE NOS 05/21/2016 ALF MATHUR DO Ot R19.7 DIARRHEA, UNSPECIFIED 05/23/2016 MISAEL CHUNG MD Ot E78. 2 MIXED HYPERLIPIDEMIA 05/23/2016 MISAEL CHUNG MD Ot I10 ESSENTIAL (PRIMARY) HYPERTENSION 05/23/2016 MISAEL CHUNG MD Ot I25. 10 ATHSCL HEART DISEASE OF [place] CORONARY 05/23/2016 MISAEL CHUNG MD Ot I49. 5 SICK SINUS SYNDROME 05/23/2016 MISAEL CHUNG MD Ot I65. 23 OCCLUSION AND STENOSIS OF BILATERAL PABLO 05/23/2016 MISAEL CHUNG MD Ot R06. 02 SHORTNESS OF BREATH 05/23/2016 MISAEL CHUNG MD Ot R07. 9 CHEST PAIN, UNSPECIFIED 06/05/2016 Ot 272.4 HYPE RLIPIDEMIA NEC/NOS 06/05/2016 Ot 397.0 TRIC USPID VALVE DISEASE 06/05/2016 Ot 401.9 HYPE RTENSION NOS 06/05/2016 Ot 424.0 MITR AL VALVE DISORDER 06/05/2016 Ot 786.09 RES PIRATORY ABNORM NEC 06/05/[address] PAIN NOS 06/05/2016 Ot 401.9 HYPE RTENSION NOS 06/05/2016 Ot 414.00 COR ON ATHEROSCLER NOS TYPE VESSEL, NATIV 06/05/2016 Ot 786.05 SHIVAM RTNESS OF BREATH 06/05/[address] PAIN NOS 06/05/2016 Ot 794.39 ABN CARDIOVASC STUDY NEC 06/05/2016 Ot V72.63 PRE -PROCEDURAL LABORATORY EXAMINATION 06/05/2016 Ot V72.83 EXA M PRE- OPERATIVE NEC 06/05/2016 Ot V01.89 OTH ER COMMUNICABLE DISEASES 06/05/2016 Ot 272.4 HYPE RLIPIDEMIA NEC/NOS 06/05/2016 Ot 401.9 HYPE RTENSION NOS 06/05/2016 Ot 414.01 COR ONARY ATHEROSCLEROSIS OF [place] CORON 06/05/2016 Ot 401.9 HYPE RTENSION NOS 06/05/2016 Ot 414.00 COR ON ATHEROSCLER NOS TYPE VESSEL, NATIV 06/05/[address] PAIN NOS 06/05/2016 Ot 397.0 TRIC USPID VALVE DISEASE 06/05/2016 Ot 401.9 HYPE RTENSION NOS 06/05/2016 Ot 414.00 COR ON ATHEROSCLER NOS TYPE VESSEL, NATIV 06/05/2016 Ot 424.0 MITR AL VALVE DISORDER 06/05/[address] PAIN NOS 06/05/2016 SOFIYA HEMPHILL, CARLY T Ot 496 CHR AIRWAY OBSTRUCT NEC 06/05/2016 MISAEL CHUNG MD Ot 272. 4 HYPERLIPIDEMIA NEC/NOS 06/05/2016 MISAEL CHUNG MD Ot 327. 23 OBSTRUCTIVE SLEEP APNEA (ADULT) (PEDIATR 06/05/2016 MISAEL CHUNG MD Ot 401. 9 HYPERTENSION NOS 06/05/2016 MISAEL CHUNG MD Ot 414. 00 CORON ATHEROSCLER NOS TYPE VESSEL, NATIV 06/05/2016 MISAEL CHUNG MD Ot 427. 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 06/05/2016 JOCELYN GARCIA APRN Ot 780.79 OTH MALAISE FATIGUE 06/05/2016 Ot V72.84 EXA M PRE- OPERATIVE NOS 06/05/2016 ALF MATHUR DO Ot R19.7 DIARRHEA, UNSPECIFIED 06/05/2016 MISAEL CHUNG MD Ot E78. 2 MIXED HYPERLIPIDEMIA 06/05/2016 MISAEL CHUNG MD Ot I10 ESSENTIAL (PRIMARY) HYPERTENSION 06/05/2016 MISAEL CHUNG MD Ot I25. 10 ATHSCL HEART DISEASE OF [place] CORONARY 06/05/2016 JULIET HEMPHILL, MISAEL Little Ot I49. 5 SICK SINUS SYNDROME 06/05/2016 MISAEL CHUNG MD Ot I65. 23 OCCLUSION AND STENOSIS OF BILATERAL PABLO 06/05/2016 JULIET HEMPHILL, MISAEL Little Ot R06. 02 SHORTNESS OF BREATH 06/05/2016 MISAEL CHUNG MD Ot R07. 9 CHEST PAIN, UNSPECIFIED 06/05/2016 Ot 272.4 HYPE RLIPIDEMIA NEC/NOS 06/05/2016 Ot 397.0 TRIC USPID VALVE DISEASE 06/05/2016 Ot 401.9 HYPE RTENSION NOS 06/05/2016 Ot 424.0 MITR AL VALVE DISORDER 06/05/2016 Ot 786.09 RES PIRATORY ABNORM NEC 06/05/[address] PAIN NOS 06/05/2016 Ot 401.9 HYPE RTENSION NOS 06/05/2016 Ot 414.00 COR ON ATHEROSCLER NOS TYPE VESSEL, NATIV 06/05/2016 Ot 786.05 SHIVAM RTNESS OF BREATH 06/05/[address] PAIN NOS 06/05/2016 Ot 794.39 ABN CARDIOVASC STUDY NEC 06/05/2016 Ot V72.63 PRE -PROCEDURAL LABORATORY EXAMINATION 06/05/2016 Ot V72.83 EXA M PRE- OPERATIVE NEC 06/05/2016 Ot V01.89 OTH ER COMMUNICABLE DISEASES 06/05/2016 Ot 272.4 HYPE RLIPIDEMIA NEC/NOS 06/05/2016 Ot 401.9 HYPE RTENSION NOS 06/05/2016 Ot 414.01 COR ONARY ATHEROSCLEROSIS OF [place] CORON 06/05/2016 Ot 401.9 HYPE RTENSION NOS 06/05/2016 Ot 414.00 COR ON ATHEROSCLER NOS TYPE VESSEL, NATIV 06/05/[address] PAIN NOS 06/05/2016 Ot 397.0 TRIC USPID VALVE DISEASE 06/05/2016 Ot 401.9 HYPE RTENSION NOS 06/05/2016 Ot 414.00 COR ON ATHEROSCLER NOS TYPE VESSEL, NATIV 06/05/2016 Ot 424.0 MITR AL VALVE DISORDER 06/05/[address] PAIN NOS 06/05/2016 SOFIYA HEMPHILL, CARLY Kline Ot 496 CHR AIRWAY OBSTRUCT NEC 06/05/2016 MISAEL CHUNG MD Ot 272. 4 HYPERLIPIDEMIA NEC/NOS 06/05/2016 MISAEL CHUNG MD Ot 327. 23 OBSTRUCTIVE SLEEP APNEA (ADULT) (PEDIATR 06/05/2016 MISAEL CHUNG MD Ot 401. 9 HYPERTENSION NOS 06/05/2016 MISAEL CHUNG MD Ot 414. 00 CORON ATHEROSCLER NOS TYPE VESSEL, NATIV 06/05/2016 MISAEL CHUNG MD Ot 427. 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 06/05/2016 JOCELYN GARCIA APRN Ot 780.79 OTH MALAISE FATIGUE 06/05/2016 Ot V72.84 EXA M PRE- OPERATIVE NOS 06/05/2016 ALF MATHUR DO Ot R19.7 DIARRHEA, UNSPECIFIED 06/05/2016 MISAEL CHUNG MD Ot E78. 2 MIXED HYPERLIPIDEMIA 06/05/2016 MISAEL CHUNG MD Ot I10 ESSENTIAL (PRIMARY) HYPERTENSION 06/05/2016 MISAEL CHUNG MD Ot I25. 10 ATHSCL HEART DISEASE OF [place] CORONARY 06/05/2016 MISAEL CHUNG MD Ot I49. 5 SICK SINUS SYNDROME 06/05/2016 MISAEL CHUNG MD Ot I65. 23 OCCLUSION AND STENOSIS OF BILATERAL PABLO 06/05/2016 MISAEL CHUNG MD Ot R06. 02 SHORTNESS OF BREATH 06/05/2016 MISAEL CHUNG MD Ot R07. 9 CHEST PAIN, UNSPECIFIED 06/05/2016 RASHEED PULIDO APRN Ot M76.61 ACHILLES TENDINITIS, RIGHT LEG 06/05/2016 RASHEED PULIDO APRN Ot M79.661 PAIN IN RIGHT LOWER LEG 06/05/2016 RASHEED PULIDO APRN Ot Z79.82 ECONOMIC ADVISER (CURRENT) USE OF ASPIRIN 06/05/2016 RASHEED PULIDO APRN Ot Z79.899 OTHER HALF-WAY (CURRENT) DRUG THERAPY 06/07/2016 RASHEED PULIDO APRN Ot M76.61 ACHILLES TENDINITIS, RIGHT LEG 06/07/2016 RASHEED PULIDO APRN Ot M79.661 PAIN IN RIGHT LOWER LEG 06/07/2016 RASHEED PULIDO APRN Ot Z79.82 HALF-WAY (CURRENT) USE OF ASPIRIN 06/07/2016 RASHEED PULIDO APRN Ot Z79.899 OTHER ECONOMIC ADVISER (CURRENT) DRUG THERAPY 06/11/2016 RASHEED PULIDO APRN Ot M76.61 ACHILLES TENDINITIS, RIGHT LEG 06/11/2016 RASHEED PULIDO APRN Ot M79.661 PAIN IN RIGHT LOWER LEG 06/11/2016 RASHEED PULIDO APRN Ot Z79.82 HALF-WAY (CURRENT) USE OF ASPIRIN 06/11/2016 RASHEED PULIDO APRN Ot Z79.899 OTHER HALF-WAY (CURRENT) DRUG THERAPY 06/12/2016 MISAEL CHUNG MD Ot E78. 2 MIXED HYPERLIPIDEMIA 06/12/2016 MISAEL CHUNG MD Ot I10 ESSENTIAL (PRIMARY) HYPERTENSION 06/12/2016 MISAEL CHUNG MD Ot I25. 10 ATHSCL HEART DISEASE OF [place] CORONARY 06/12/2016 MISAEL CHUNG MD Ot I49. 5 SICK SINUS SYNDROME 06/12/2016 MISAEL CHUNG MD Ot I65. 23 OCCLUSION AND STENOSIS OF BILATERAL PABLO 06/12/2016 MISAEL CHUNG MD Ot R06. 02 SHORTNESS OF BREATH 06/12/2016 MISAEL CHUNG MD Ot R07. 9 CHEST PAIN, UNSPECIFIED 11/06/2016 Ot 272.4 HYPE RLIPIDEMIA NEC/NOS 11/06/2016 Ot 397.0 TRIC USPID VALVE DISEASE 11/06/2016 Ot 401.9 HYPE RTENSION NOS 11/06/2016 Ot 424.0 MITR AL VALVE DISORDER 11/06/2016 Ot 786.09 RES PIRATORY ABNORM NEC 11/06/[address] PAIN NOS 11/06/2016 Ot 401.9 HYPE RTENSION NOS 11/06/2016 Ot 414.00 COR ON ATHEROSCLER NOS TYPE VESSEL, NATIV 11/06/2016 Ot 786.05 SHIVAM RTNESS OF BREATH 11/06/[address] PAIN NOS 11/06/2016 Ot 794.39 ABN CARDIOVASC STUDY NEC 11/06/2016 Ot V72.63 PRE -PROCEDURAL LABORATORY EXAMINATION 11/06/2016 Ot V72.83 EXA M PRE- OPERATIVE NEC 11/06/2016 Ot V01.89 OT ER COMMUNICABLE DISEASES 11/06/2016 Ot 272.4 HYPE RLIPIDEMIA NEC/NOS 11/06/2016 Ot 401.9 HYPE RTENSION NOS 11/06/2016 Ot 414.01 COR ONARY ATHEROSCLEROSIS OF [place] CORON 11/06/2016 Ot 401.9 HYPE RTENSION NOS 11/06/2016 Ot 414.00 COR ON ATHEROSCLER NOS TYPE VESSEL, NATIV 11/06/[address] PAIN NOS 11/06/2016 Ot 397.0 TRIC USPID VALVE DISEASE 11/06/2016 Ot 401.9 HYPE RTENSION NOS 11/06/2016 Ot 414.00 COR ON ATHEROSCLER NOS TYPE VESSEL, NATIV 11/06/2016 Ot 424.0 MITR AL VALVE DISORDER 11/06/[address] PAIN NOS 11/06/2016 SOFIYA HEMPHILL, CARLY Kline Ot 496 CHR AIRWAY OBSTRUCT NEC 11/06/2016 MISAEL CHUNG MD Ot 272. 4 HYPERLIPIDEMIA NEC/NOS 11/06/2016 MISAEL CHUNG MD Ot 327. 23 OBSTRUCTIVE SLEEP APNEA (ADULT) (PEDIATR 11/06/2016 MISAEL CHUNG MD Ot 401. 9 HYPERTENSION NOS 11/06/2016 MISAEL CHUNG MD Ot 414. 00 CORON ATHEROSCLER NOS TYPE VESSEL, NATIV 11/06/2016 MISAEL CHUNG MD Ot 427. 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 11/06/2016 JOCELYN GARCIA PRISON GUARD Ot 780.79 OTH MALAISE FATIGUE 11/06/2016 Ot V72.84 EXA M PRE- OPERATIVE NOS 11/06/2016 ALF MATHUR DO Ot R19.7 DIARRHEA, UNSPECIFIED 11/06/2016 MISAEL CHUNG MD Ot E78. 2 MIXED HYPERLIPIDEMIA 11/06/2016 MISAEL CHUNG MD Ot I10 ESSENTIAL (PRIMARY) HYPERTENSION 11/06/2016 MISAEL CHUNG MD Ot I25. 10 ATHSCL HEART DISEASE OF [place] CORONARY 11/06/2016 MISAEL CHUNG MD Ot I49. 5 SICK SINUS SYNDROME 11/06/2016 MISAEL CHUNG MD Ot I65. 23 OCCLUSION AND STENOSIS OF BILATERAL PABLO 11/06/2016 MISAEL CHUNG MD Ot R06. 02 SHORTNESS OF BREATH 11/06/2016 MISAEL CHUNG MD Ot R07. 9 CHEST PAIN, UNSPECIFIED 11/07/2016 ALF MATHUR DO Ot M51.36 OTHER INTERVERTEBRAL DISC DEGENERATION, 11/22/2016 MATHUR DO, ALF J Ot M51.36 OTHER INTERVERTEBRAL DISC DEGENERATION, 04/05/2017 ALF MATHUR DO Ot I25.10 ATHSCL HEART DISEASE OF [place] CORONARY 04/05/2017 ALF MATHUR DO Ot R07.9 CHEST PAIN, UNSPECIFIED 04/06/2017 ANNE-MARIE HEMPHILL, GREG Charles Ot G47.33 OBSTRUCTIVE SLEEP APNEA (ADULT) (PEDIATR 11/15/2017 DEVONTE CALIXTO MD Ot A08. 4 VIRAL INTESTINAL INFECTION, UNSPECIFIED 11/15/2017 DEVONTE CALIXTO MD Ot E78. 00 PURE HYPERCHOLESTEROLEMIA, UNSPECIFIED 11/15/2017 DEVONTE CALIXTO MD Ot F32. 9 MAJOR DEPRESSIVE DISORDER, SINGLE EPISOD 11/15/2017 DEVONTE CALIXTO MD Ot F41. 9 ANXIETY DISORDER, UNSPECIFIED 11/15/2017 DEVONTE CALIXTO MD Ot G40.909 EPILEPSY, UNSP, NOT INTRACTABLE, WITHOUT 11/15/2017 DEVONTE CALIXTO MD Ot G43.909 MIGRAINE, UNSP, NOT INTRACTABLE, WITHOUT 11/15/2017 DEVONTE CALIXTO MD Ot I25. 10 ATHSCL HEART DISEASE OF [place] CORONARY 11/15/2017 DEVONTE CALIXTO MD Ot J44. 9 CHRONIC OBSTRUCTIVE PULMONARY DISEASE, U 11/15/2017 DEVONTE CALIXTO MD Ot K21. 9 GASTRO-ESOPHAGEAL REFLUX DISEASE WITHOUT 11/15/2017 DEVONTE CALIXTO MD Ot R11. 2 NAUSEA WITH VOMITING, UNSPECIFIED 11/15/2017 DEVONTE CALIXTO MD Ot Z79. 82 ECONOMIC ADVISER (CURRENT) USE OF ASPIRIN 11/15/2017 DEVONTE CALIXTO MD Ot Z86.718 PERSONAL HISTORY OF OTHER VENOUS THROMBO 11/15/2017 DEVONTE CALIXTO MD Ot Z87.891 PERSONAL HISTORY OF NICOTINE DEPENDENCE 11/15/2017 Ot 401.9 HYPE RTENSION NOS 11/15/2017 Ot 414.00 COR ON ATHEROSCLER NOS TYPE VESSEL, NATIV 11/15/[address] PAIN NOS 11/15/2017 Ot 397.0 TRIC USPID VALVE DISEASE 11/15/2017 Ot 401.9 HYPE RTENSION NOS 11/15/2017 Ot 414.00 COR ON ATHEROSCLER NOS TYPE VESSEL, NATIV 11/15/2017 Ot 424.0 MITR AL VALVE DISORDER 11/15/[address] PAIN NOS 11/15/2017 SOFIYA HEMPHILL, CARLY Kline Ot 496 CHR AIRWAY OBSTRUCT NEC 11/15/2017 MISAEL CHUNG MD Ot 272. 4 HYPERLIPIDEMIA NEC/NOS 11/15/2017 MISAEL CHUNG MD Ot 327. 23 OBSTRUCTIVE SLEEP APNEA (ADULT) (PEDIATR 11/15/2017 MISAEL CHUNG MD Ot 401. 9 HYPERTENSION NOS 11/15/2017 MISAEL CHUNG MD Ot 414. 00 CORON ATHEROSCLER NOS TYPE VESSEL, NATIV 11/15/2017 MISAEL CHUNG MD Ot 427. 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 11/15/2017 JOCELYN GARCIA PRISON GUARD Ot 780.79 OTH MALAISE FATIGUE 11/15/2017 Ot V72.84 EXA M PRE- OPERATIVE NOS 11/15/2017 ALF MATHUR DO Ot R19.7 DIARRHEA, UNSPECIFIED 11/15/2017 MISAEL CHUNG MD Ot E78. 2 MIXED HYPERLIPIDEMIA 11/15/2017 MISAEL CHUNG MD Ot I10 ESSENTIAL (PRIMARY) HYPERTENSION 11/15/2017 MISAEL CHUNG MD Ot I25. 10 ATHSCL HEART DISEASE OF [place] CORONARY 11/15/2017 MISAEL CHUNG MD Ot I49. 5 SICK SINUS SYNDROME 11/15/2017 MISAEL CHUNG MD Ot I65. 23 OCCLUSION AND STENOSIS OF BILATERAL PABLO 11/15/2017 MISAEL CHUNG MD Ot R06. 02 SHORTNESS OF BREATH 11/15/2017 MISAEL CHUNG MD Ot R07. 9 CHEST PAIN, UNSPECIFIED 11/15/2017 ALF MATHUR DO Ot M51.36 OTHER INTERVERTEBRAL DISC DEGENERATION, 11/15/2017 ALF MATHUR DO Ot I25.10 ATHSCL HEART DISEASE OF [place] CORONARY 11/15/2017 ALF MATHUR DO Ot R07.9 CHEST PAIN, UNSPECIFIED 11/18/2017 DEVONTE CALIXTO MD Ot A08. 4 VIRAL INTESTINAL INFECTION, UNSPECIFIED 11/18/2017 DEVONTE CALIXTO MD Ot E78. 00 PURE HYPERCHOLESTEROLEMIA, UNSPECIFIED 11/18/2017 DEVONTE CALIXTO MD Ot F32. 9 MAJOR DEPRESSIVE DISORDER, SINGLE EPISOD 11/18/2017 DURGA MD, DEVONTE J Ot F41. 9 ANXIETY DISORDER, UNSPECIFIED 11/18/2017 DEVONTE CALIXTO MD Ot G40.909 EPILEPSY, UNSP, NOT INTRACTABLE, WITHOUT 11/18/2017 DEVONTE CALIXTO MD Ot G43.909 MIGRAINE, UNSP, NOT INTRACTABLE, WITHOUT 11/18/2017 DEVONTE CALIXTO MD Ot I25. 10 ATHSCL HEART DISEASE OF [place] CORONARY 11/18/2017 DEVONTE CALIXTO MD Ot J44. 9 CHRONIC OBSTRUCTIVE PULMONARY DISEASE, U 11/18/2017 DEVONTE CALIXTO MD Ot K21. 9 GASTRO-ESOPHAGEAL REFLUX DISEASE WITHOUT 11/18/2017 DEVONTE CALIXTO MD Ot R11. 2 NAUSEA WITH VOMITING, UNSPECIFIED 11/18/2017 DEVONTE CALIXTO MD Ot Z79. 82 HALF-WAY (CURRENT) USE OF ASPIRIN 11/18/2017 DEVONTE CALIXTO MD Ot Z86.718 PERSONAL HISTORY OF OTHER VENOUS THROMBO 11/18/2017 DEVONTE CALIXTO MD Ot Z87.891 PERSONAL HISTORY OF NICOTINE DEPENDENCE 11/21/2017 DEVONTE CALIXTO MD Ot A08. 4 VIRAL INTESTINAL INFECTION, UNSPECIFIED 11/21/2017 DEVONTE CALIXTO MD Ot E78. 00 PURE HYPERCHOLESTEROLEMIA, UNSPECIFIED 11/21/2017 DEVONTE CALIXTO MD Ot F32. 9 MAJOR DEPRESSIVE DISORDER, SINGLE EPISOD 11/21/2017 DEVONTE CALIXTO MD Ot F41. 9 ANXIETY DISORDER, UNSPECIFIED 11/21/2017 DEVONTE CALIXTO MD Ot G40.909 EPILEPSY, UNSP, NOT INTRACTABLE, WITHOUT 11/21/2017 DEVONTE CALIXTO MD Ot G43.909 MIGRAINE, UNSP, NOT INTRACTABLE, WITHOUT 11/21/2017 DEVONTE CALIXTO MD Ot I25. 10 ATHSCL HEART DISEASE OF [place] CORONARY 11/21/2017 DEVONTE CALIXTO MD Ot J44. 9 CHRONIC OBSTRUCTIVE PULMONARY DISEASE, U 11/21/2017 DEVONTE CALIXTO MD Ot K21. 9 GASTRO-ESOPHAGEAL REFLUX DISEASE WITHOUT 11/21/2017 DEVONTE CALIXTO MD Ot R11. 2 NAUSEA WITH VOMITING, UNSPECIFIED 11/21/2017 DEVONTE CALIXTO MD Ot Z79. 82 ECONOMIC ADVISER (CURRENT) USE OF ASPIRIN 11/21/2017 DEVONTE CALIXTO MD Ot Z86.718 PERSONAL HISTORY OF OTHER VENOUS THROMBO 11/21/2017 DURGA HEMPHILL, DEVONTE Little Ot Z87.891 PERSONAL HISTORY OF NICOTINE DEPENDENCE 07/14/2018 MECHELLE CHIANG Ot I10 ESSENTIAL (PRIMARY) HYPERTENSION 07/14/2018 MECHELLE CHIANG Ot I25.10 ATHSCL HEART DISEASE OF [place] CORONARY 07/14/2018 MECHELLE CHIANG Ot I65.29 OCCLUSION AND STENOSIS OF UNSPECIFIED CA 07/14/2018 MECHELLE CHIANG Ot R06.02 SHORTNESS OF BREATH 07/25/2018 MECHELLE CHIANG Ot I10 ESSENTIAL (PRIMARY) HYPERTENSION 07/25/2018 MECHELLE CHIANG Ot I25.10 ATHSCL HEART DISEASE OF [place] CORONARY 07/25/2018 MECHELLE CHIANG Ot I65.23 OCCLUSION AND STENOSIS OF BILATERAL PABLO 07/25/2018 MECHELLE CHIANG Ot R06.02 SHORTNESS OF BREATH 08/22/2018 EUGENE JOYCE MD Ot Z01.818 ENCOUNTER FOR OTHER PREPROCEDURAL EXAMIN 08/25/2018 EUGENE JOYCE MD, Ot Z01.818 ENCOUNTER FOR OTHER PREPROCEDURAL EXAMIN 08/28/2018 EUGENE JOYCE MD, Ot Z01.818 ENCOUNTER FOR OTHER PREPROCEDURAL EXAMIN 09/17/2018 EUGENE JOYCE MD Ot E78.5 HYPERLIPIDEMIA, UNSPECIFIED 09/17/2018 EUGENE JOYCE MD Ot F32.9 MAJOR DEPRESSIVE DISORDER, SINGLE EPISOD 09/17/2018 EUGENE JOYCE MD, Ot F41.9 ANXIETY DISORDER, UNSPECIFIED 09/17/2018 EUGENE JOYCE MD Ot G40.909 EPILEPSY, UNSP, NOT INTRACTABLE, WITHOUT 09/17/2018 EUGENE JOYCE MD Ot G47.33 OBSTRUCTIVE SLEEP APNEA (ADULT) (PEDIATR 09/17/2018 EUGENE JOYCE MD Ot G56.01 CARPAL TUNNEL SYNDROME, RIGHT UPPER LIMB 09/17/2018 EUGENE JOYCE MD Ot G56.21 LESION OF ULNAR NERVE, RIGHT UPPER LIMB 09/17/2018 EUGENE JOYCE MD, Ot I1 0 ESSENTIAL (PRIMARY) HYPERTENSION 09/17/2018 EUGENE JOYCE MD, Ot I25.10 ATHSCL HEART DISEASE OF [place] CORONARY 09/17/2018 EUGENE JOYCE MD, Ot J44.9 CHRONIC OBSTRUCTIVE PULMONARY DISEASE, U 09/17/2018 EUGENE JOYCE MD, Ot K21.9 GASTRO-ESOPHAGEAL REFLUX DISEASE WITHOUT 09/17/2018 EUGENE JOYCE MD, Ot Z79.82 ECONOMIC ADVISER (CURRENT) USE OF ASPIRIN 09/17/2018 EUGENE JOYCE MD, Ot Z79.899 OTHER ECONOMIC ADVISER (CURRENT) DRUG THERAPY 09/17/2018 EUGENE JOYCE MD, Ot Z87.891 PERSONAL HISTORY OF NICOTINE DEPENDENCE 09/19/2018 EUGENE JOYCE MD, Ot E78.5 HYPERLIPIDEMIA, UNSPECIFIED 09/19/2018 EUGENE JOYCE MD, Ot F32.9 MAJOR DEPRESSIVE DISORDER, SINGLE EPISOD 09/19/2018 EUGENE JOYCE MD, Ot F41.9 ANXIETY DISORDER, UNSPECIFIED 09/19/2018 EUGENE JOYCE MD, Ot G40.909 EPILEPSY, UNSP, NOT INTRACTABLE, WITHOUT 09/19/2018 EUGENE JOYCE MD, Ot G47.33 OBSTRUCTIVE SLEEP APNEA (ADULT) (PEDIATR 09/19/2018 EUGENE JOYCE MD, Ot G56.01 CARPAL TUNNEL SYNDROME, RIGHT UPPER LIMB 09/19/2018 EUGENE JOYCE MD, Ot G56.21 LESION OF ULNAR NERVE, RIGHT UPPER LIMB 09/19/2018 EUGENE JOYCE MD, Ot I1 0 ESSENTIAL (PRIMARY) HYPERTENSION 09/19/2018 EUGENE JOYCE MD, Ot I25.10 ATHSCL HEART DISEASE OF [place] CORONARY 09/19/2018 EUGENE JOYCE MD, Ot J44.9 CHRONIC OBSTRUCTIVE PULMONARY DISEASE, U 09/19/2018 EUGENE JOYCE MD, Ot K21.9 GASTRO-ESOPHAGEAL REFLUX DISEASE WITHOUT 09/19/2018 EUGENE JOYCE MD, Ot Z79.82 ECONOMIC ADVISER (CURRENT) USE OF ASPIRIN 09/19/2018 EUGENE JOYCE MD, Ot Z79.899 OTHER ECONOMIC ADVISER (CURRENT) DRUG THERAPY 09/19/2018 EUGENE JOYCE MD, Ot Z87.891 PERSONAL HISTORY OF NICOTINE DEPENDENCE 10/31/2018 MISAEL CHUNG MD Ot 272. 4 HYPERLIPIDEMIA NEC/NOS 10/31/2018 MISAEL CHUNG MD Ot 327. 23 OBSTRUCTIVE SLEEP APNEA (ADULT) (PEDIATR 10/31/2018 MISAEL CHUNG MD Ot 401. 9 HYPERTENSION NOS 10/31/2018 MISAEL CHUNG MD Ot 414. 00 CORON ATHEROSCLER NOS TYPE VESSEL, NATIV 10/31/2018 MISAEL CHUNG MD Ot 427. 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 10/31/2018 JOCELYN GARCIA PRISON GUARD Ot 780.79 OTH MALAISE FATIGUE 10/31/2018 Ot V72.84 EXA M PRE- OPERATIVE NOS 10/31/2018 ALF MATHUR DO Ot R19.7 DIARRHEA, UNSPECIFIED 10/31/2018 MISAEL CHUNG MD Ot E78. 2 MIXED HYPERLIPIDEMIA 10/31/2018 MISAEL CHUNG MD, Ot I10 ESSENTIAL (PRIMARY) HYPERTENSION 10/31/2018 MISAEL CHUNG MD, Ot I25. 10 ATHSCL HEART DISEASE OF [place] CORONARY 10/31/2018 MISAEL CHUNG MD Ot I49. 5 SICK SINUS SYNDROME 10/31/2018 MISAEL CHUNG MD Ot I65. 23 OCCLUSION AND STENOSIS OF BILATERAL PABLO 10/31/2018 MISAEL CHUNG MD Ot R06. 02 SHORTNESS OF BREATH 10/31/2018 MISAEL CHUNG MD Ot R07. 9 CHEST PAIN, UNSPECIFIED 10/31/2018 ALF MATHUR DO Ot M51.36 OTHER INTERVERTEBRAL DISC DEGENERATION, 10/31/2018 ALF MATHUR DO Ot I25.10 ATHSCL HEART DISEASE OF [place] CORONARY 10/31/2018 ALF MATHUR DO Ot R07.9 CHEST PAIN, UNSPECIFIED 10/31/2018 MECHELLE CHIANG Ot I10 ESSENTIAL (PRIMARY) HYPERTENSION 10/31/2018 MECHELLE CHIANG Ot I25.10 ATHSCL HEART DISEASE OF [place] CORONARY 10/31/2018 MECHELLE CHIANG Ot I65.23 OCCLUSION AND STENOSIS OF BILATERAL [place]ABLO 10/31/2018 MECHELLE CHIANG Ot R06.02 SHORTNESS OF BREATH 08/13/2019 MISAEL CHUNG MD Ot I10 ESSENTIAL (PRIMARY) HYPERTENSION 08/13/2019 MISAEL CHUNG MD Ot I25. 10 ATHSCL HEART DISEASE OF [place] CORONARY 08/13/2019 MISAEL CHUNG MD Ot I65. 29 OCCLUSION AND STENOSIS OF UNSPECIFIED CA 08/13/2019 MISAEL CHUNG MD Ot K21. 9 GASTRO-ESOPHAGEAL REFLUX DISEASE WITHOUT 08/19/2019 MISAEL CHUNG MD Ot I10 ESSENTIAL (PRIMARY) HYPERTENSION 08/19/2019 MISAEL CHUNG MD Ot I25. 10 ATHSCL HEART DISEASE OF [place] CORONARY 08/19/2019 MISAEL CHUNG MD Ot I65. 23 OCCLUSION AND STENOSIS OF BILATERAL PABLO 08/19/2019 MISAEL CHUNG MD Ot K21. 9 GASTRO-ESOPHAGEAL REFLUX DISEASE WITHOUT 09/02/2019 MISAEL CHUNG MD Ot I10 ESSENTIAL (PRIMARY) HYPERTENSION 09/02/2019 MISAEL CHUGN MD Ot I25. 10 ATHSCL HEART DISEASE OF [place] CORONARY 09/02/2019 MISAEL CHUNG MD Ot I65. 23 OCCLUSION AND STENOSIS OF BILATERAL PABLO 09/02/2019 MISAEL CHUNG MD Ot K21. 9 GASTRO-ESOPHAGEAL REFLUX DISEASE WITHOUT 04/07/2020 MATHUR DO, ALF [facility] Ot E78.2 MIXED HYPERLIPIDEMIA 04/07/2020 MTAHUR DO, ALF [place] Ot R51 HEADACHE 04/07/2020 MATHUR DO, ALF [facility] Ot R56.9 UNSPECIFIED CONVULSIONS 04/22/2020 MATHUR DO, ALF [facility] Ot E78.2 MIXED HYPERLIPIDEMIA 04/22/2020 MATHUR DO, ALF [place] Ot R51 HEADACHE 04/22/2020 MATHUR DO, ALF [facility] Ot R56.9 UNSPECIFIED CONVULSIONS Procedures There is no data. Results Test Result Range Influenza virus A and B antigen detectio n - 11/15/17 14:15 FLU RESULT NEGATIVE FOR INFLUENZA A AND B ANTIGENS BY [facility] Complete blood count (CBC) with automate d white blood cell (WBC) differential - 11/15/17 14:30 Blood leukocytes automated count (number/volume) 5.8 10*3/uL 4.3-11.0 Blood erythrocytes automated count (number/volume) 4.42 10*6/uL 4.35-5.85 Venous blood hemoglobin measurement (mass/volume) 13.3 g/dL 13.3-17.7 Blood hematocrit (volume fraction) 38 % 40-54 Automated erythrocyte mean corpuscular volume 87 [ foz_us] 80-99 Automated erythrocyte mean corpuscular h emoglobin (mass per erythrocyte) 30 pg 25-34 Automated erythrocyte mean corpuscular h emoglobin concentration measurement (mass/volume) 35 g/dL 32-36 Automated erythrocyte distribution width ratio 14. 3 % 10.0- 14.5 Automated blood platelet count (count/volume) 288 10*3/uL [...] 10*3 1.0-4.0 Blood monocytes automated count (number/volume) 0. 7 10*3 0.0-1.0 Automated eosinophil count 0.2 10*3/uL 0 .0-0.3 Automated blood basophil count (count/volume) 0.0 10*3/uL 0.0-0.1 Comprehensive metabolic panel - 11/15/17 14:30 Serum or plasma sodium measurement (moles/volume) 142 mmol/L 135-145 Serum or plasma potassium measurement (moles/volume) 4.1 mmol/L 3.6-5.0 Serum or plasma chloride measurement (moles/volume) 105 mmol/L 98-107 Carbon dioxide 26 mmol/L 21-32 Serum or plasma anion gap determination (moles/volume) 11 mmol/L 5-14 Serum or plasma urea nitrogen measurement (mass/volume ) 21 mg/dL 7-18 Serum or plasma creatinine measurement (mass/volume) 1.26 mg/dL 0.60-1.30 Serum or plasma urea nitrogen/creatinine mass ratio 17 NRG Serum or plasma creatinine measurement w ith calculation of estimated glomerular filtration rate 59 NRG Serum or plasma glucose measurement (mass/volume) 108 mg/dL 70-105 Serum or plasma calcium measurement (mass/volume) 9.6 mg/dL 8.5-10.1 Serum or plasma total bilirubin measurement (mass/volu me) 0.5 mg/dL 0.1-1.0 Serum or plasma alkaline phosphatase faby surement (enzymatic activity/volume) 144 U/L 40-136 Serum or plasma aspartate aminotransfera se measurement (enzymatic activity/volume) 16 U/L 5-34 Serum or plasma alanine aminotransferase measurement (enzymatic activity/volume) 16 U/L 0-55 Serum or plasma protein measurement (mass/volume) 7.8 g/dL 6.4-8.2 Serum or plasma albumin measurement (mass/volume) 4.6 g/dL 3.2-4.5 Magnesium - 11/15/17 14:30 Magnesium 2.1 mg/dL 1.8-2.4 Serum or plasma troponin i.cardiac measu rement (mass/volume) - 11/15/17 14:30 Serum or plasma troponin i.cardiac measurement (mass/v olume) < ng/mL <0.30 Serum or plasma C reactive protein measu rement (mass/volume) - 11/15/17 14:30 Serum or plasma C reactive protein measurement (mass/v olume) 0.80 mg/dL 0.00-0.50 Lipase - 11/15/17 14:30 Lipase 43 U/L 8-78 Comprehensive metabolic panel - 07/10/18 09:43 Serum or plasma sodium measurement (moles/volume) 140 mmol/L 135-145 Serum or plasma potassium measurement (moles/volume) 4.7 mmol/L 3.6-5.0 Serum or plasma chloride measurement (moles/volume) 107 mmol/L 98-107 Carbon dioxide 21 mmol/L 21-32 Serum or plasma anion gap determination (moles/volume) 12 mmol/L 5-14 Serum or plasma urea nitrogen measurement (mass/volume ) 19 mg/dL 7-18 Serum or plasma creatinine measurement (mass/volume) 1.15 mg/dL 0.60-1.30 Serum or plasma urea nitrogen/creatinine mass ratio 17 NRG Serum or plasma creatinine measurement w ith calculation of estimated glomerular filtration rate > NRG Serum or plasma glucose measurement (mass/volume) 99 mg/dL 70-105 Serum or plasma calcium measurement (mass/volume) 9.6 mg/dL 8.5-10.1 Serum or plasma total bilirubin measurement (mass/volu me) 0.4 mg/dL 0.1-1.0 Serum or plasma alkaline phosphatase faby surement (enzymatic activity/volume) 125 U/L 40-136 Serum or plasma aspartate aminotransfera se measurement (enzymatic activity/volume) 16 U/L 5-34 Serum or plasma alanine aminotransferase measurement (enzymatic activity/volume) 18 U/L 0-55 Serum or plasma protein measurement (mass/volume) 7.7 g/dL 6.4-8.2 Serum or plasma albumin measurement (mass/volume) 4.6 g/dL 3.2-4.5 Lipid 1996 panel - 07/10/18 09:43 Serum or plasma triglyceride measurement (mass/volume) 236 mg/dL <150 Serum or plasma cholesterol measurement (mass/volume) 173 mg/dL < 200 Serum or plasma cholesterol in HDL measurement (mass/v olume) 25 mg/dL 40-60 Cholesterol in LDL [mass/volume] in serum or plasma by direct assay 98 mg/dL 1-129 Serum or plasma cholesterol in VLDL measurement (mass/ volume) 47 mg/dL 5-40 Methicillin resistant Staphylococcus aur eus (MRSA) screening culture - 08/22/18 11:10 Methicillin resistant Staphylococcus aureus (MRSA) scr eening culture NEG NRG Encounters ACCT No. Visit Date/Time Discharge Status Pt. Type Provider Facility Loc./Unit Complaint [id number] 04/05/2020 07:59:00 23:59:59 CLS Outpatient ALF MATHUR DO Via [facility] RAD HEADACHE,SEIZUR E DISORDER,HYPERLIPIDEMIA [id number] 08/10/2019 09:30:00 23:59:59 CLS Outpatient MISAEL CHUNG MD Via [facility] CARD CAD,CHEST PAIN,GERD,HTN [id number] 12/10/2018 10:30:00 23:59:59 CLS Preadmit EUGENE JOYCE MD Via [facility] SDC RIGHT CUBITAL TUNNEL SY NDROME [id number] 12/05/2018 05:34:00 23:59:59 CLS Outpatient EUGENE JOYCE MD Via [facility] PREOP RIGHT CUBITAL TUNNEL S YNDROME [id number] 11/28/2018 12:23:00 019 23:59:59 CLS Preadmit ALF MATHUR DO [facility] RAD ACUTE RENAL INSUFFICIE NCY [id number] 11/18/2018 07:24:00 019 23:59:59 CLS Preadmit MISAEL CHUNG MD Via [facility] CARD CAD,CHEST PAIN [id number] 11/18/2018 07:23:00 019 23:59:59 CLS Preadmit MISAEL CHUNG MD Via [facility] CARD CAD,CHEST PAIN [id number] 09/17/2018 09:08:00 018 13:50:00 DIS Outpatient EUGENE JOYCE MD [facility] SDC LEFT CARPAL/CUBITAL TU NNEL SYNDROME [id number] 08/22/2018 10:27:00 018 15:30:00 DIS Outpatient EUGENE JOYCE MD [facility] PREOP LEFT CARPAL/CUBITAL TU NNEL SYNDROME [id number] 07/10/2018 09:28:00 018 23:59:59 CLS Outpatient MARIZOL CHIANG [facility] LAB I25.10 [id number] 12/23/2017 10:29:00 018 23:59:59 CLS Preadmit FAIZA PETERS [facility] REHAB CERVICAL RADICULOPATHY [id number] 11/15/2017 14:03:00 018 17:26:00 DIS Emergency DURGA HEMPHILL, DEVONTE [place] [facility] ER CARRANZA/DOESN'T FEEL RIGHT/S OB [id number] 04/05/2017 20:12:00 017 06:20:00 DIS Outpatient GREG XIE MD [facility] SLEEP OBSTRUCTIVE SLEEP APNEA [id number] 03/22/2017 07:02:00 017 23:59:59 CLS Outpatient ALF MATHUR DO [facility] CARD R07.9,I25.10 [id number] 11/06/2016 12:05:00 017 23:59:59 CLS Outpatient ALF MATHUR DO [facility] RAD TRAUMA [id number] 06/05/2016 18:27:00 016 23:59:59 CLS Outpatient HERNANDEZ WORTHYP [facility] QUICK FOOT/ANKLE PAIN [id number] 06/05/2016 19:15:00 016 20:52:00 DIS Emergency RASHEED PULIDO [employer]ISON GUARD Via [facility] ER R HEEL/LEG PAIN [id number] 05/21/2016 08:02:00 016 23:59:59 CLS Outpatient MISAEL CHUNG MD [facility] CARD CAD, CAROTID ARTERY ZENAIDA NOSIS, CHEST PAIN, DYSPNEA, [id number] 11/16/2015 00:08:00 016 23:59:59 CLS Preadmit ALF MATHUR DO [facility] LAB DIARRHEA [id number] 08/17/2015 11:02:00 016 00:01:00 DIS Outpatient ALF MATHUR DO [facility] LAB DIARRHEA [id number] 02/23/2015 20:18:00 015 05:05:00 DIS Outpatient GREG XIE MD [facility] SLEEP APNEAS [id number] 03/10/2014 09:42:00 014 23:59:59 CLS Outpatient JOCELYN GARCIA [employer] [facility] LAB FATIGUE [id number] 09/21/2013 07:57:00 013 23:59:59 CLS Outpatient MISAEL CHUNG MD [facility] LAB HTN,HLP,JUSTIN,SSS,CAD [id number] 02/04/2013 12:58:00 013 23:59:59 CLS Outpatient CARLY ARRIAZA MD [facility] RT COPD [id number] 01/28/2013 19:59:00 013 06:35:00 DIS Outpatient GREG XIE MD [facility] SLEEP OA [id number] 01/22/2013 21:00:00 013 07:15:00 DIS Outpatient GREG XIE MD [facility] SLEEP JUSTIN [id number] 12/06/2014 06:43:00 Document Registration [id number] 12/03/2014 11:51:00 Document Registration [id number] 12/02/2014 19:35:00 Document Registration [id number] 11/19/2012 08:33:00 Document Registration [id number] 11/05/2012 11:28:00 Document Registration [id number] 10/31/2012 09:13:00 Document Registration [id number] 11/16/2011 07:46:00 Document Registration [id number] 07/09/2011 00:00:00 Document Registration [id number] 06/22/2011 05:30:00 Document Registration [id number] 06/21/2011 07:38:00 Document Registration [id number] 06/13/2011 10:41:00 Document Registration [id number] 04/15/2011 10:55:00 Document Registration [id number] 03/17/2010 09:48:00 Document Registration [id number] 02/27/2010 05:41:00 Document Registration [id number] 02/22/2010 09:10:00 Document Registration [id number] 11/28/2009 08:46:00 Document Registration [id number] 11/28/2009 08:41:00 Document Registration [id number] 06/01/2009 13:15:00 Document Registration [id number] 05/25/2009 10:58:00 Document Registration [id number] 05/10/2009 10:50:00 Document Registration [id number] 05/04/2009 10:38:00 Document Registration
[2020-04-23 16:20] LABS: BASOPHILS % (AUTO) 0 % (0-10); EOSINOPHILS # (AUTO) 0.2 10^3/uL (0.0-0.3); EOSINOPHILS % (AUTO) 4 % (0-10); HEMATOCRIT 39 % (40-54); HEMOGLOBIN 13.1 G/DL (13.3-17.7); LYMPHOCYTES # (AUTO) 1.6 X 10^3 (1.0-4.0); LYMPHOCYTES % (AUTO) 34 % (12-44); MEAN CORPUSCULAR HEMOGLOBIN 29 PG (25-34); MEAN CORPUSCULAR HGB CONC 34 G/DL (32-36); MEAN CORPUSCULAR VOLUME 86 FL (80-99); MEAN PLATELET VOLUME 9.5 FL (7.4-10.4); MONOCYTES # (AUTO) 0.5 X 10^3 (0.0-1.0); MONOCYTES % (AUTO) 10 % (0-12); NEUTROPHILS # (AUTO) 2.5 X 10^3 (1.8-7.8); NEUTROPHILS % (AUTO) 52 % (42-75); PLATELET COUNT 296 10^3/uL (130-400); RED CELL DISTRIBUTION WIDTH 14.7 % (10.0-14.5); WHITE BLOOD COUNT 4.7 10^3/uL (4.3-11.0)
--- NOTE | 2020-04-23 16:28 | NUR ---
Spoke with pt's regarding discharge plan.
== END 2020-04-23 16:33 | disposition home or self-care (01) ==
LOC: EDUNIT# 15:28 → ER 15:30
DX: M54.31 Sciatica, right side (principal); J44.9 Chronic obstructive pulmonary disease, unspecified; G47.30 Sleep apnea, unspecified; I25.10 Atherosclerotic heart disease of native coronary artery without angina pectoris; E78.00 Pure hypercholesterolemia, unspecified; K21.9 Gastro-esophageal reflux disease without esophagitis; K59.09 Other constipation; K52.9 Noninfective gastroenteritis and colitis, unspecified; M19.90 Unspecified osteoarthritis, unspecified site; F41.9 Anxiety disorder, unspecified; F32.9 Major depressive disorder, single episode, unspecified; Z86.718 Personal history of other venous thrombosis and embolism; Z79.82 Long term (current) use of aspirin; Z79.899 Other long term (current) drug therapy
CPT/HCPCS: 36415; 80053; 85025; 85379; 99283

== ENCOUNTER 2020-09-28 15:00 | Emergency (ER) | payer BC ==
[~2020-09-28] VITALS: Ht 190 cm; Wt 136.0 kg
[~2020-09-28 15:00] MED LIST changes: +ALPR.25T PO; -ALPR0.254 PO; +HYDR-3870 PO; -PANT40TA3 PO; +PANT40TA52 PO; +PRD20T PO
--- NOTE | 2020-09-28 16:01 | Diagnostic Imaging Report ---
INDICATION: Hypoxemia Portable chest 3:49 PM There are patchy infiltrates in both lungs. Heart size and pulmonary vascularity are normal. There are no effusions or pneumothoraces. IMPRESSION: Patchy bilateral pulmonary infiltrates consistent with a viral pneumonia. Dictated by: Dictated on workstation # [id number]
[2020-09-28 16:26] LABS: BASOPHILS % (AUTO) 0 % (0-10); EOSINOPHILS % (AUTO) 0 % (0-10); HEMATOCRIT 42 % (40-54); HEMOGLOBIN 13.9 g/dL (13.3-17.7); LYMPHOCYTES # (AUTO) 1.2 10^3/uL (1.0-4.0); LYMPHOCYTES % (AUTO) 38 % (12-44); MEAN CORPUSCULAR HEMOGLOBIN 29 pg (25-34); MEAN CORPUSCULAR HGB CONC 33 g/dL (32-36); MEAN CORPUSCULAR VOLUME 87 fL (80-99); MEAN PLATELET VOLUME 9.2 fL (9.0-12.2); MONOCYTES # (AUTO) 0.5 10^3/uL (0.0-1.0); MONOCYTES % (AUTO) 17 % (0-12); NEUTROPHILS # (AUTO) 1.5 10^3/uL (1.8-7.8); NEUTROPHILS % (AUTO) 45 % (42-75); PLATELET COUNT 224 10^3/uL (130-400); WHITE BLOOD COUNT 3.2 10^3/uL (4.3-11.0)
[2020-09-28 16:37] LABS: ALBUMIN 4.4 GM/DL (3.2-4.5); POTASSIUM 4.4 MMOL/L (3.6-5.0)
[2020-09-28 16:38] LABS: CALCIUM 8.8 MG/DL (8.5-10.1)
[2020-09-28 16:39] LABS: TOTAL PROTEIN 7.6 GM/DL (6.4-8.2)
[2020-09-28 16:41] LABS: BILIRUBIN,TOTAL 0.3 MG/DL (0.1-1.0)
[2020-09-28 16:43] LABS: CREATININE SERUM 1.38 MG/DL (0.60-1.30)
--- NOTE | 2020-09-28 16:48 | ED Respiratory ---
General Chief Complaint: Cough/Cold/Flu Symptoms Stated Complaint: COVID +,LOW O2 Nursing Triage Note: PT STATES WAS SENT TO ED BY DR ARMAS OFFICE. PT STATES HAS CP, SOA, SL COUGH AND CARRANZA. PT IS COVID +. PT STATES 09/19 SX STARTED AND 09/26/20 TESTED +. PT STATES WANTS TO GET BAM INFUSION. PT STATES O2 SAT 89% AT HOME AT TIMES Source: patient Exam Limitations: no limitations History of Present Illness Date Seen by Provider: Sep 28, 2020 Time Seen by Provider: 15:15 Initial Comments This is 60-year-old gentleman presents to the emergency room with complaints of episodes of hypoxia at home sometimes dipping into the 80s. He complains of shortness of breath and chest pain. He was diagnosed with Covid on September 26. In conversation with Dr. Quan's office he was directed to come to the emergency room for a "transfusion". It sounds like perhaps he is referring to Bamlanivimab. Patient's oxygen saturation is 96% on room air at this time. He is denying any other symptoms aside from shortness of breath. Patient has comorbidities of COPD and obesity. Allergies and Home Medications Allergies Coded Allergies: levofloxacin (Verified Allergy, Unknown, 07/16/07) Home Medications ALPRAZolam 0.25 Mg Tablet, 0.25-0.5 MG PO Q6H PRN for ANXIETY, (Reported) Anastrozole 1 Mg Tablet, 0.5 MG PO WEEK, (Reported) Aspirin 81 Mg Tab.chew, 81 MG PO DAILY, (Reported) Cholecalciferol 5,000 Unit Capsule, 5,000 UNIT PO DAILY, (Reported) Diclofenac Sodium/Misoprostol 1 Each Tab.ir.dr, 1 EACH PO BID, (Reported) Gabapentin 600 Mg Tablet, 600 MG PO TID, (Reported) Garlic 1,000 Mg Capsule, 1,000 MG PO DAILY, (Reported) Gemfibrozil 600 Mg Tablet, 600 MG PO BID, (Reported) Hydrocodone Bit/Acetaminophen 1 Each Tablet, 1 EACH PO Q4H PRN for PAIN-MODERATE Prescribed by: ANALISA CARCAMO on 09/17/18 1257 Hydrocodone/Acetaminophen 1 Each Tablet, 1 EACH PO Q4-6HR PRN for PAIN-MODERATE Prescribed by: RASHEED PULIDO on 04/23/20 1614 Lamotrigine 300 Mg Tab.er.24, 300 MG PO DAILY, (Reported) Losartan Potassium 50 Mg Tablet, 50 MG PO DAILY, (Reported) Metoprolol Tartrate 25 Mg Tablet, 25 MG PO BID, (Reported) Pantoprazole Sodium 40 Mg Tablet.dr, 40 MG PO BID, (Reported) Potassium Chloride 10 Meq Tablet.er, 10 MEQ PO DAILY, (Reported) Prednisone 20 Mg Tab, 40 MG PO DAILY Prescribed by: RASHEED PULIDO on 04/23/20 1614 Venlafaxine HCl 150 Mg Tab.er.24, 150 MG PO DAILY, (Reported) Patient Home Medication List Home Medication List Reviewed: Yes Review of Systems Review of Systems Constitutional: no symptoms reported EENTM: no symptoms reported Respiratory: see HPI Cardiovascular: no symptoms reported Gastrointestinal: no symptoms reported Genitourinary: no symptoms reported Musculoskeletal: no symptoms reported Skin: no symptoms reported Psychiatric/Neurological: No Symptoms Reported Hematologic/Lymphatic: No Symptoms Reported Immunological/Allergic: no symptoms reported Past Hkanotj-Yojrje-Xbuate Hx Past Med/Social Hx: Reviewed Nursing Past Med/Soc Hx Patient Social History Alcohol Use: Denies Use Recreational Drug Use: No Smoking Status: Former Smoker Type Used: Cigarettes Former Smoker, Quit: Aug 22, 2002 2nd Hand Smoke Exposure: No Recent Foreign Travel: No Contact w/Someone Who Travel: No Recent Infectious Disease Expo: No Recent Hopitalizations: No Physical Abuse: No Sexual Abuse: No Seasonal Allergies Seasonal Allergies: No Past Medical History Surgeries: Yes (COMPRESSED NERVE R ARM, HERNIA REPAIR, HEART CATHS) Abdominal, Gallbladder Respiratory: Yes Sleep Apnea, COPD Currently Using CPAP: Yes Cardiac: Yes Coronary Artery Disease, Deep Vein Thrombosis, High Cholesterol Neurological: Yes (Tremor) Headaches /Migraines, Seizure Disorder Reproductive Disorders: No Sexually Transmitted Disease: No HIV/AIDS: No Gastrointestinal: Yes Gastroesophageal Reflux, Chronic Constipation, Chronic Diarrhea, Ulcer Musculoskeletal: Yes (BULGING DISC) Arthritis, Chronic Back Pain Endocrine: No Loss of Vision: Bilateral Hearing Impairment: Denies Cancer: No Psychosocial: Yes Anxiety, Depression Integumentary: No Blood Disorders: No Adverse Reaction/Blood Tranf: No Physical Exam Vital Signs - First Documented 09/28/20 09/28/20 15:10 18:13 Temp 36.6 Pulse 85 Resp 26 B/P (MAP) 155/80 (105) Pulse Ox 93 Capillary Refill : Less Than 3 Seconds Height: 6'3.00" Weight: 345lbs. 3.0oz. 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 and I talked in) Skin: normal color, warm/dry Progress/Results/Core Measures Suspected Sepsis Recent Fever Within 48 Hours: No Infection Criteria Present: None New/Unexplained Altered Menta: No Sepsis Screen: No Definite Risk SIRS Temperature: Pulse: 85 Respiratory Rate: 26 Laboratory Tests 09/28/20 16:10: White Blood Count 3.2L Blood Pressure 155 /80 Mean: 105 Laboratory Tests 09/28/20 16:10: Creatinine 1.38H, Platelet Count 224, Total Bilirubin 0.3 Results/Orders Lab Results Laboratory Tests Test 09/28/20 16:10 Range/Units White Blood Count 3.2 L 4.3-11.0 10^3/uL Red Blood Count 4.87 4.30-5.52 10^6/uL Hemoglobin 13.9 13.3-17.7 g/dL Hematocrit 42 40-54 % Mean Corpuscular Volume 87 80-99 fL Mean Corpuscular Hemoglobin 29 25-34 pg Mean Corpuscular Hemoglobin Concent 33 32-36 g/dL Red Cell Distribution Width 14.4 10.0-14.5 % Platelet Count 224 130-400 10^3/uL Mean Platelet Volume 9.2 9.0-12.2 fL Immature Granulocyte % (Auto) 0 % Neutrophils (%) (Auto) 45 42-75 % Lymphocytes (%) (Auto) 38 12-44 % Monocytes (%) (Auto) 17 H 0-12 % Eosinophils (%) (Auto) 0 0-10 % Basophils (%) (Auto) 0 0-10 % Neutrophils # (Auto) 1.5 L 1.8-7.8 10^3/uL Lymphocytes # (Auto) 1.2 1.0-4.0 10^3/uL Monocytes # (Auto) 0.5 0.0-1.0 10^3/uL Eosinophils # (Auto) 0.0 0.0-0.3 10^3/uL Basophils # (Auto) 0.0 0.0-0.1 10^3/uL Immature Granulocyte # (Auto) 0.0 0.0-0.1 10^3/uL D-Dimer 0.32 0.00-0.49 UG/ML Sodium Level 138 135-145 MMOL/L Potassium Level 4.4 3.6-5.0 MMOL/L Chloride Level 101 98-107 MMOL/L Carbon Dioxide Level 22 21-32 MMOL/L Anion Gap 15 H 5-14 MMOL/L Blood Urea Nitrogen 21 H 7-18 MG/DL Creatinine 1.38 H 0.60-1.30 MG/DL Estimat Glomerular Filtration Rate 53 BUN/Creatinine Ratio 15 Glucose Level 92 70-105 MG/DL Calcium Level 8.8 8.5-10.1 MG/DL Corrected Calcium 8.5 8.5-10.1 MG/DL Total Bilirubin 0.3 0.1-1.0 MG/DL Aspartate Amino Transf (AST/SGOT) 33 5-34 U/L Alanine Aminotransferase (ALT/SGPT) 24 0-55 U/L Alkaline Phosphatase 117 40-136 U/L Lactate Dehydrogenase 225 H 125-220 U/L Troponin I < 0.028 <0.028 NG/ML C-Reactive Protein High Sensitivity 1.15 H 0.00-0.50 MG/DL Total Protein 7.6 6.4-8.2 GM/DL Albumin 4.4 3.2-4.5 GM/DL Procalcitonin 0.03 <0.10 NG/ML My Orders Orders - FAIZA SCHROEDER MD Cbc With Automated Diff (09/28/20 15:25) Comprehensive Metabolic Panel (09/28/20 15:25) Hs C Reactive Protein (09/28/20 15:25) Fibrin Degradation Products (09/28/20 15:25) Ed Iv/Invasive Line Start (09/28/20 15:25) Chest 1 View, Ap/Pa Only (09/28/20 15:25) Procalcitonin (Pct) (09/28/20 15:25) LDH (09/28/20 15:25) Troponin I (09/28/20 16:48) Potassium Chloride (Tablet) (Klor Con Ta (09/28/20 17:30) Vital Signs/I&O 09/28/20 09/28/20 15:10 18:13 Temp 36.6 Pulse 85 78 Resp 26 20 B/P (MAP) 155/80 (105) 142/72 (105) Pulse Ox 93 Capillary Refill : Less Than 3 Seconds Blood Pressure Mean: 105 Progress Note : Progress Note Patient maintain oxygen saturations in the mid 90s throughout his ER stay. He does meet qualifications for Bamlanivimab. I did call and make arrangements with [facility] and will fax over the appropriate documents. I have discussed his case with Dr. Bustos as well as the ordering physician for the infusion. Antibiotics and steroids were considered but not started at this time due to possible interference with Bamlanivimab infusion. I have advised him to connect with Dr. Quan after his infusion to determine if steroids and/or a azithromycin may be indicated. Potassium was mildly low and oral potassium was given for replacement. ECG Initial ECG Impression Date: Sep 28, 2020 Initial ECG Impression Time: 15:21 Initial ECG Rate: 84 Initial ECG Rhythm: Normal Sinus Initial ECG Intervals: Normal Initial ECG Impression: Normal Comment Normal sinus rhythm with no ST elevation or depression. No abnormal intervals or axis deviation. Diagnostic Imaging Diagonstic Imaging: Xray Plain Films/CT/US/NM/MRI: chest Comments Chest x-ray viewed by me and report reviewed. See report below: NAME: WALDEMAR MCKEON [facility] REC#: [id number] PT STATUS: REG ER : 1960 PHYSICIAN: FAIZA SCHROEDER MD ADMIT DATE: 09/28/20/ER Signed Date of Exam:09/28/20 CHEST 1 VIEW, AP/PA ONLY INDICATION: Hypoxemia Portable chest 3:49 PM There are patchy infiltrates in both lungs. Heart size and pulmonary vascularity are normal. There are no effusions or pneumothoraces. IMPRESSION: Patchy bilateral pulmonary infiltrates consistent with a viral pneumonia. Dictated by: Dictated on workstation # [id number] Dict: 09/28/20 1558 Trans: 09/28/20 1615 [facility] [id number] Interpreted by: TAYLOR HOWELL MD Electronically signed by: TAYLOR HOWELL MD 09/28/20 1615 Departure Impression Primary Impression: COVID-19 Additional Impressions: COPD (chronic obstructive pulmonary disease) Qualified Codes: J44.9 - Chronic obstructive pulmonary disease, unspecified Obesity Qualified Codes: E66.9 - Obesity, unspecified; Z68.37 - Body mass index (bmi) 37.0-37.9, adult Acute hypokalemia Disposition: HOME, SELF-CARE Condition: Stable Departure-Patient Inst. Decision time for Depature: 17:52 Referrals: ALF QUAN DO (PCP/Family) Primary Care Physician Patient Instructions: Chronic Obstructive Pulmonary Disease (COPD) (DC), Coronavirus Disease 2019 (COVID-19) (DC) Add. Discharge Instructions: Drink plenty of clear liquids. Anticipate a call from [facility] tomorrow regarding Bamlanivimab infusion tomorrow. If you are still having worsening symptoms tomorrow, contact Dr. Quan's office to inquire about steroids and antibiotics. Call or return to care if you have worsening symptoms or other questions or concerns. Change positions often, rolling to your stomach when lying down often to improve shortness of breath. All discharge instructions reviewed with patient and/or family. Voiced understanding. Copy Copies To 1: ALF QUAN JOSHUA T MD Sep 28, 2020 16:48
[2020-09-28] MEDS ORDERED: AZITHROMYCIN 250 MG TAB (ZITHROMAX) PO ONE (17:30)
[2020-09-28] MEDS ORDERED: KCL 10 MEQ TAB (MICRO K) PO ONE (17:30)
[2020-09-28 18:13] VITALS: BP 142/72
== END 2020-09-28 18:13 | disposition home or self-care (01) ==
LOC: EDUNIT# 15:00 → ER 15:01
DX: U07.1 COVID-19 (principal); J44.9 Chronic obstructive pulmonary disease, unspecified; E66.9 Obesity, unspecified; E87.6 Hypokalemia; F32.9 Major depressive disorder, single episode, unspecified; F41.9 Anxiety disorder, unspecified; K21.9 Gastro-esophageal reflux disease without esophagitis; G89.29 Other chronic pain; M54.9 Dorsalgia, unspecified; E78.00 Pure hypercholesterolemia, unspecified; G40.909 Epilepsy, unspecified, not intractable, without status epilepticus; Z68.37 Body mass index [BMI] 37.0-37.9, adult; Z88.1 Allergy status to other antibiotic agents; Z87.891 Personal history of nicotine dependence; Z79.82 Long term (current) use of aspirin; Z79.52 Long term (current) use of systemic steroids; Z79.891 Long term (current) use of opiate analgesic
CPT/HCPCS: 36415; 71045; 80053; 83615; 84145; 84484; 85025; 85379; 86141; 93005

== ENCOUNTER → 2020-10-06 | Outpatient (CLI) | payer BC ==
[2020-10-06 16:22] LABS: BASOPHILS % (AUTO) 0 % (0-10); EOSINOPHILS % (AUTO) 0 % (0-10); HEMATOCRIT 42 % (40-54); HEMOGLOBIN 14.2 g/dL (13.3-17.7); LYMPHOCYTES # (AUTO) 1.3 10^3/uL (1.0-4.0); LYMPHOCYTES % (AUTO) 14 % (12-44); MEAN CORPUSCULAR HEMOGLOBIN 29 pg (25-34); MEAN CORPUSCULAR HGB CONC 34 g/dL (32-36); MEAN CORPUSCULAR VOLUME 85 fL (80-99); MEAN PLATELET VOLUME 8.9 fL (9.0-12.2); MONOCYTES # (AUTO) 0.9 10^3/uL (0.0-1.0); MONOCYTES % (AUTO) 11 % (0-12); NEUTROPHILS # (AUTO) 6.6 10^3/uL (1.8-7.8); NEUTROPHILS % (AUTO) 74 % (42-75); PLATELET COUNT 440 10^3/uL (130-400); WHITE BLOOD COUNT 8.9 10^3/uL (4.3-11.0)
[2020-10-06 16:36] LABS: ALBUMIN 4.1 GM/DL (3.2-4.5); CHLORIDE 107 MMOL/L (98-107); POTASSIUM 4.3 MMOL/L (3.6-5.0); SODIUM 138 MMOL/L (135-145)
[2020-10-06 16:37] LABS: CALCIUM 8.9 MG/DL (8.5-10.1)
[2020-10-06 16:38] LABS: GLUCOSE 106 MG/DL (70-105)
[2020-10-06 16:39] LABS: TOTAL PROTEIN 7.5 GM/DL (6.4-8.2)
[2020-10-06 16:40] LABS: BILIRUBIN,TOTAL 0.3 MG/DL (0.1-1.0); CARBON DIOXIDE 20 MMOL/L (21-32)
[2020-10-06 16:42] LABS: ALKALINE PHOSPHATASE 128 U/L (40-136); CREATININE SERUM 1.02 MG/DL (0.60-1.30); GFR ESTIMATED > 60
[2020-10-06 16:43] LABS: BUN/CREATININE RATIO 27
[2020-10-06 16:45] LABS: ALANINE AMINOTRANSFERASE 19 U/L (0-55)
--- NOTE | 2020-10-06 17:08 | Diagnostic Imaging Report ---
INDICATION: Dyspnea. EXAMINATION: PA and lateral views of the chest were obtained. COMPARISON: Study of 09/28/2020. FINDINGS: Overall heart size and pulmonary vascularity remain within normal limits. There is continued mixed interstitial and alveolar density in the perihilar regions with mild patchy peripheral areas of infiltrate, greater on the right. There is no pneumothorax or significant pleural fluid. IMPRESSION: Continued perihilar atelectasis and/or pneumonitis with mild patchy densities in the lung peripheries, greater on the right. Findings would be consistent with pneumonitis or atypical pneumonia. Dictated by: Dictated on workstation # [id number]
== END ==
LOC: RAD 16:00
PROVIDERS: ATTEND Nurse Practitioner Family
DX: U07.1 COVID-19 (principal)
CPT/HCPCS: 36415; 71046; 80053; 83615; 83880; 85025; 85379

== ENCOUNTER → 2020-11-14 | Outpatient (CLI) | payer BC ==
[~2020-11-14] MED LIST changes: -GEMF600T8 PO; +GEMF600T88 PO
--- NOTE | 2020-11-14 09:29 | Diagnostic Imaging Report ---
Indication: COVID 19 pneumonia, followup. Time of exam: 9:15 AM Correlation is made with prior chest from 10/06/2020. Heart size normal. Infiltrates seen in the right upper lobe appear resolved. No new infiltrate is detected. There is no effusion or pneumothorax. Impression: Resolution of right-sided pneumonia when compared to examination one month earlier. Dictated by: Dictated on workstation # [id number]
== END ==
LOC: RAD 08:56
PROVIDERS: ATTEND Nurse Practitioner Family
DX: U07.1 COVID-19 (principal); J12.82 Pneumonia due to coronavirus disease 2019
CPT/HCPCS: 71046

== ENCOUNTER → 2021-11-06 | Outpatient (CLI) | payer MEDICARE | LOC: CARD 15:00 | PROVIDERS: ATTEND Physician Assistant | DX: I11.9 Hypertensive heart disease without heart failure (principal); I25.10 Atherosclerotic heart disease of native coronary artery without angina pectoris | CPT/HCPCS: 93306 ==

== ENCOUNTER → 2022-01-10 | Outpatient (CLI) | payer MEDICARE ==
[~2022-01-10] MED LIST changes: +CATHETER FLUSH 10 ML SYR IVP PRN; +REGADENOSON 0.4 MG/5 ML SYR (LEXISCAN) IV ONE
[2022-01-10 14:04] VITALS: BP 148/91
--- NOTE | 2022-01-10 15:47 | Cardiology Stress Test Report ---
Stress Test Report Date of Procedure/Referring: Date of Procedure: Jan 10, 2022 Grazyna Conway Admitting Physician Husam Quan DO Indications: HTN Baseline Heart Rate: 78 Baseline Blood Pressure: Blood Pressure Systolic: 148 Blood Pressure Diastolic: 91 Vital Signs Date Time Temp Pulse Resp B/P (MAP) Pulse Ox O2 Delivery O2 Flow Rate FiO2 01/10/22 14:04 87 20 148/91 (110) 96 Room Air Baseline Vital Signs Vital Signs Date Time Temp Pulse Resp B/P (MAP) Pulse Ox O2 Delivery O2 Flow Rate FiO2 01/10/22 14:04 87 20 148/91 (110) 96 Room Air Baseline EKG: Baseline EKG: NSR Summary: After explaining the procedure and details to the patient, he signed the consent and was brought to the stress nuclear laboratory. Patient exercised on standard Marcelino protocol, EKG, heart rate and blood pressure were monitored continuously, resting and stress doses of radio tracer were injected, imaging was acquired and reviewed in the short axis, horizontal long axis and vertical long axis views Patient was able to exercise for a total of 3 minutes on Marcelino protocol, METs 4.6 Maximum heart rate 146 Maximum blood pressure 222/113 Stress EKG, Minimal nondiagnostic changes Recovery EKG, Return to baseline TID: 0.85 SSS: 4 SDS: 4 EF: 48 Conclusion: 1. Fair exercise tolerance for total of 3 minutes on standard Marcelino protocol, 4.6 METS achieving 91% of maximal expected heart rate 2. Appropriate heart rate response to exercise with hypertensive response to exercise with peak blood pressure 222/113 returned to baseline during recovery 3. Nondiagnostic EKG changes with exercise return to baseline during recovery 4. Diaphragmatic attenuation with decreased uptake involving the mid to apical inferior wall with mild reversibility, no significant ischemia was noted 5. Normal left ventricular size with mild apical hypokinesia, ejection fraction 48% MISAEL CHUNG MD Jan 10, 2022 15:47
== END ==
LOC: CARD 12:45
PROVIDERS: ATTEND Physician Assistant
DX: I10 Essential (primary) hypertension (principal); I25.10 Atherosclerotic heart disease of native coronary artery without angina pectoris
CPT/HCPCS: 78452; 93017; A9502

== ENCOUNTER 2023-05-31 05:32 | Outpatient (CLI) | payer MEDICARE ==
[~2023-05-31] VITALS: Ht 190.5 cm; Wt 143.3 kg
[~2023-05-31 05:32] MED LIST changes: -CATHETER FLUSH 10 ML SYR IVP PRN; -REGADENOSON 0.4 MG/5 ML SYR (LEXISCAN) IV ONE
== END 2023-06-03 11:17 | disposition home or self-care (01) ==
LOC: PREOP 05:32
PROVIDERS: ATTEND Internal Medicine
DX: Z01.818 Encounter for other preprocedural examination (principal)

== ENCOUNTER 2023-06-07 07:06 | Day surgery (SDC) | payer MEDICARE ==
--- NOTE | 2023-05-30 16:24 | HISTORY AND PHYSICAL ---
PANENDOSCOPY SUMMARY HISTORY OF PRESENT ILLNESS: The patient is a 63-year-old white male referred by Dr. Quan for endoscopic evaluation. He reports about 3-week history of intermittent nausea and vomiting without reported hematemesis and epigastric pain. It began several weeks after he had actually stopped indomethacin due to diarrhea and indigestion. He was given this for headaches. Headache symptoms have improved. He denies melena or bright red blood per rectum. He denies previous history of known peptic ulcer disease. He has been taking meloxicam 7.5 mg daily. PAST MEDICAL HISTORY: Generalized seizure disorder that he takes lamotrigine for. He has a history of hypertension and hyperlipidemia with no known history of coronary artery disease. PAST SURGICAL HISTORY: Significant for cholecystectomy, number of years ago. He has deep brain stimulator for essential tremor a number of years ago, has had carpal tunnel surgery and inguinal hernia surgery in the distant past. FAMILY HISTORY: His dad had either liver or kidney cancer, succumbing at the age of 63, had an uncle with lung cancer, was a smoker and mother had throat cancer and was a smoker. SOCIAL HISTORY: The patient is disabled and additionally has sleep apnea, on CPAP therapy, has [id number] smoking history, but quit 26 years ago. Occasional small volume alcohol intake reported. REVIEW OF SYSTEMS: CONSTITUTIONAL: The patient has had at least a 17-pound weight loss in the last year, he believes most of that over the past several months without night sweats, chills or fever. GASTROINTESTINAL: As noted in the HPI. PULMONARY: Denies cough or wheezing. Stable dyspnea on exertion, dyspnea at rest. CARDIOVASCULAR: Denies chest pain, orthopnea, PND, or pedal edema and denies syncope. PHYSICAL EXAMINATION: GENERAL: Reveals a pleasant, overweight white male, little anxious, but not in acute distress. VITAL SIGNS: Weight 316 pounds, blood pressure 126/82. HEENT: Reveals some mild pallor. Sclerae nonicteric. CHEST: Clear to auscultation. HEART: Reveals a regular rate and rhythm without murmur, S3, or S4. ABDOMEN: Soft, supple. Mild epigastric discomfort to palpation is present without rebound or guarding. No mass or organomegaly noted. Bowel sounds positive. EXTREMITIES: No cyanosis, clubbing or edema. ASSESSMENT: For further evaluation for epigastric pain, weight loss and nausea and vomiting, the patient is being set up for EGD evaluation. He has not had a screening colonoscopy, so we will be performing this as well after EGD evaluation. We will premedicate the patient before prep, doses of 4 mg of Zofran considering his symptoms. He is advised to discontinue meloxicam. Continue other medications unchanged. It was going to be a little over a month before I get him in to [place]. In addition to his weight and obstructive sleep apnea. We will be performing his procedure at [facility] next week. I thank you for the referral of this pleasant gentleman. Job ID: [id number] DocumentID: [id number] Dictated Date: 05/30/2023 15:44:04 Back Joiner Date: 05/30/2023 16:22:00 Dictated By: ALVIN GLASGOW MD MTDD
[~2023-06-07] VITALS: Ht 190.5 cm; Wt 143.3 kg
[2023-06-07] MEDS ORDERED: LACTATED RINGERS 1,000 ML 1,000 ML IV STA (07:14)
[2023-06-07] MEDS ORDERED: HURRICAINE EXT TUBE (BENZOCAINE) XX PRN (07:15)
--- NOTE | 2023-06-07 07:54 | Pre-Op Note & Conscious Sedat ---
Pre-Operative Progress Note Date H&P Reviewed: Jun 07, 2023 Time H&P Reviewed: 07:54 History & Physical: H&P Reviewed, Patient Examed, No changes noted Pre-Op Diagnosis: nausea vomiting screening colon Moderate Sedation PreProcedure ASA Score 3 Airway Lungs Heart ASA score ASA 1: a normal healthy patient ASA 2: a patient with a mild systemic disease (mid diabetes, controlled hypertension, obesity ASA 3: a patient with a severe systemic disease that limits activity (angina, COPD, prior Myocardial infarction) ASA 4: a patient with an incapacitating disease that is a constant threat to life (CHF, renal failure) ASA 5: a moribund patient not expected to survive 24 hrs. (ruptured aneurysm) ASA 6: a declared brain- patient whose organs are being harvested. For emergent operations, add the letter E after the classification Mallampati Classification Grade 3 Sedation Plan Analgesia, Amnesia, Plan communicated to team members, Discussed options with patient/fam, Discussed risks with patient/fam The patient is an appropriate candidate to undergo the planned procedure, sedation, and anesthesia. The patient immediately re-assessed prior to indication. ALVIN GLASGOW MD Jun 07, 2023 07:54
[2023-06-07] MEDS ORDERED: CLON0.5T4 PO (07:56)
[2023-06-07] MEDS ORDERED: GABA300C PO (07:56)
[2023-06-07] MEDS ORDERED: MELO7.5T46 PO (07:56)
[2023-06-07] MEDS ORDERED: LAMO150T4 PO (07:56)
[2023-06-07] MEDS ORDERED: LOSA25TA41 PO (07:56)
[2023-06-07] MEDS ORDERED: LAMO200T5 PO (07:56)
[2023-06-07] MEDS ORDERED: POTA10CA84 PO (07:56)
[2023-06-07 08:40] VITALS: BP 123/70
--- NOTE | 2023-06-07 08:44 | Progress Note-Post Operative ---
Post-Procedure Note Physician (s)/Missile Mechanic (s) Physician ALVIN GLASGOW MD Pre-Procedure Diagnosis Pre-Procedure Diagnosis: nausea vomiting screening colon Post-Procedure Diagnosis Post-operative diagnosis: Findings: The posterior pharynx true and false vocal folds arytenoid aperture and epiglottis are unremarkable visual inspection. Proximal mid and distal esophagus are unremarkable. A biopsy was obtained from the GE junction and submitted for histopathology. No evidence for hiatal hernia formation is noted. Approximately 20 small to up to 1 cm polyps were noted in the predominantly in the fundus of the stomach but also noted in the cardia sparing the antrum with typical features of fundal polyps. The largest was removed in its entirety by cold forceps and submitted for histopathology. No evidence for ulceration or gastritis was noted. The pylorus pyloric channel duodenal bulb and second portion ileum were unremarkable with normal villous appearing architecture. A/P 1. Approximately 20 polyps up to a centimeter in size compatible with fundal polyps were noted predominantly in the fundus of the stomach but also in the cardia This was an otherwise unremarkable EGD. We then proceeded with screening colonoscopy. Prior to this digital rectal evaluation was performed. Anal suture tone was normal and the perianal reflexes intact. Prostate is unremarkable on digital inspection no abnormalities were noted on digital inspection anal canal just rectal vault. The colonoscope was inserted into the rectum and under direct visitation advanced the cecum. The cecum was identified by the indication of the ileocecal valve and cecal strap. Photographic documentation was obtained. Careful suction was made as colonoscope was withdrawn. Quality the prep was suboptimal with areas of semisolid stool present potentially obscuring small polyps. Findings There are no evidence for internal/external hemorrhoids. The rectum sigmoid colon descending colon splenic flexure transverse colon hepatic flexure ascending colon and cecum were unremarkable with no evidence for diverticular disease neoplasia or vascular malformation. Prep conditions however were suboptimal for this reason considering there is no family history for colon cancer would advocate repeat screening colonoscopy in 5 years. ALVIN GLASGOW MD Jun 07, 2023 08:44
[2023-06-07 08:50] VITALS: BP 112/66
[2023-06-07 09:03] VITALS: BP 112/66
--- NOTE | 2023-06-07 14:30 | Anesthesia-General Post-Op ---
MAC Patient Condition Mental Status/LOC: Same as Preop Cardiovascular: Satisfactory Nausea/Vomiting: Absent Respiratory: Satisfactory Pain: Controlled Complications: Absent Post Op Complications Complications None Follow Up Care/Instructions Patient Instructions None needed. Anesthesiology Discharge Order Discharge Order Patient was doing well this morning after the procedure with no complaints, stable vital signs, no apparent adverse anesthesia problems. No complications reported per nursing. SELVIN DOSS DO Jun 07, 2023 14:30
== END 2023-06-07 09:30 | disposition home or self-care (01) ==
LOC: ENDO 07:06
PROVIDERS: ATTEND Internal Medicine
DX: Z12.11 Encounter for screening for malignant neoplasm of colon (principal); K31.7 Polyp of stomach and duodenum; K21.00 Gastro-esophageal reflux disease with esophagitis, without bleeding; G47.33 Obstructive sleep apnea (adult) (pediatric); G47.30 Sleep apnea, unspecified; Z99.81 Dependence on supplemental oxygen; Z87.891 Personal history of nicotine dependence